=== PATIENT | male | born 1945 | race Caucasian/White ===

== ENCOUNTER 2017-12-19 12:35 | Inpatient (IN) | payer MEDICARE, BC ==
[2017-12-19 12:48] VITALS: BMI 27.8
--- NOTE | 2017-12-19 13:02 | RAD ---
PROCEDURE: CHEST RADIOGRAPH, 1 VIEW HISTORY: SOB COMPARISON: None available. FINDINGS: LUNGS: Ill-defined opacity right base, possibly subsegmental atelectasis. Followup advised. PLEURA: No pneumothorax or pleural fluid seen. CARDIOVASCULAR: Normal heart size. Mild congestive change. Right tunneled central venous dialysis catheter. 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 OTHER FINDINGS: None. IMPRESSION: Subsegmental atelectasis versus early infiltrate at right base. Followup advised. Mild congestive change. Central venous catheter.
--- NOTE | 2017-12-19 13:11 | C.PDOC ---
History Of Present Illness 72-year-old, PMHx includes ESRD oon Dialysis (MWF), is brought to the emergency department by EMS from dialysis. As per EMS, patient went for routine dialysis today and 2h40 into dialysis, he became unresponsive. CPR was immediately initiated and EMS was phoned. Patient was shocked twice, given epi once, 1 amp of CA and 1amp bicarb with spontaneous return of heart rhythm. Patient required my immediate attention. During my evaluation, patient is alert and oriented x3. He is currently complaining of chest soreness from compressions. Notes he felt like normal self prior to incident. Time Seen by Provider: 12/19/17 12:40 Chief Complaint (Nursing): Chest Pain History Per: Patient, EMS History/Exam Limitations: no limitations Past Medical History Reviewed: Historical Data, Nursing Documentation, Vital Signs Vital Signs: Last Vital Signs Temp 97.5 F L 12/20/17 04:00 Pulse 64 12/20/17 09:13 Resp 16 12/20/17 09:13 BP 104/52 L 12/20/17 09:13 Pulse Ox 100 12/20/17 09:37 - Medical History PMH: Anemia, HTN, Chronic Kidney Disease Family History: States: No Known Family Hx - Social History Hx Alcohol Use: Yes Hx Substance Use: No Review Of Systems Except As Marked, All Systems Reviewed And Found Negative. Constitutional: Negative for: Fever, Chills Cardiovascular: Negative for: Chest Pain, Palpitations, Light Headedness Respiratory: Negative for: Shortness of Breath Gastrointestinal: Negative for: Nausea, Vomiting Skin: Negative for: Rash Neurological: Negative for: Weakness, Numbness, Altered Mental Status, Headache , Dizziness Physical Exam - Physical Exam Appears: Non-toxic, No Acute Distress Skin: Normal Color, Warm, Dry, No Rash Head: Normacephalic Eye(s): bilateral: PERRL Nose: Normal, No Flaring Lips: Normal Appearing Neck: Normal ROM Chest: Symmetrical, Other (dialysis catheter left anterior chest wall ) Cardiovascular: Rhythm Regular, No Murmur Respiratory: Normal Breath Sounds, No Decreased Breath Sounds, No Accessory Muscle Use Gastrointestinal/Abdominal: Soft, No Tenderness (ventral hernia), No Guarding, No Rebound Extremity: Normal ROM, No Deformity, No Swelling Pulses: Left Radial: Normal, Right Radial: Normal Neurological/Psych: Oriented x3, Normal Speech ED Course And Treatment - Laboratory Results Result Diagrams: 12/20/17 05:50 12/20/17 05:57 O2 Sat by Pulse Oximetry: 100 (RA) Pulse Ox Interpretation: Normal Critical Care Time - Critical Care Note Total Time (in mins): 45 Documented critical care: time excludes all time spent performing seperately billable procedures. Medical Decision Making Medical Decision Making: Impression 72y/o M comes in s/p cardiac arrest with ROSC Plan: * EKG * Bloodwork * Chest X-Ray * Reassess and Disposition Time: 1241 EKG Rate 65bpm Rhythm NSR Interpret 3rd degree heart block Time: 12:50 EKG Rate 79bpm Rhythm NSR Interpret First degree AV block. LBBB. No old to compare. Consult Stat consult Dr Eugenia Desai, EKG was sent. Case was discussed with ICU Dr Echevarria, states he will evaluate patient at bedside in ED Dr Reyes was notified, and will admit patient ICU s/p arrest. Disposition - Disposition Disposition: HOSPITALIZED Disposition Time: 13:10 Condition: SERIOUS - Clinical Impression Clinical Impression: Cardiac arrest - Scribe Statement The provider has reviewed the documentation as recorded by the Scribe (Zack Scherer) All medical record entries made by the Scribe were at my direction and personally dictated by me. I have reviewed the chart and agree that the record accurately reflects my personal performance of the history, physical exam, medical decision making, and the department course for this patient. I have also personally directed, reviewed, and agree with the discharge instructions and disposition.
[2017-12-19 13:14] LABS: BASO # 0.1 K/uL (0.0-0.2); BASO % 0.8 % (0.0-2.0); EOS # 0.3 K/uL (0.0-0.7); EOS % 2.1 % (0.0-4.0); HEMOGLOBIN 13.5 g/dL (12.0-18.0); LYMPH # 3.5 K/uL (1.0-4.3); LYMPH % 25.4 % (20.0-40.0); MEAN CELL VOLUME 96.4 fL (80.0-94.0); MEAN CORPUSCULAR HEMOGLOBIN 31.7 pg (27.0-31.0); MEAN CORPUSCULAR HGB CONC 32.9 g/dL (33.0-37.0); MONO # 0.7 K/uL (0.0-0.8); MONO % 4.9 % (0.0-10.0); NEUT # 9.3 K/uL (1.8-7.0); NEUT % 66.8 % (50.0-75.0); NRBC % 0.1 % (0.0-2.0); RBC 4.27 Mil/uL (4.40-5.90); RED CELL DISTRIBUTION WIDTH 17.1 % (11.5-14.5); WHITE BLOOD COUNT 13.9 K/uL (4.8-10.8)
[2017-12-19 13:23] LABS: INR 1.3; PROTHROMBIN TIME 14.5 SECONDS (9.7-12.2)
[2017-12-19 14:17] LABS: ALB/GLOB RATIO 0.8 (1.0-2.1); ALBUMIN 3.7 g/dL (3.5-5.0); CALCIUM 9.8 mg/dl (8.6-10.4)
--- NOTE | 2017-12-19 14:17 | CP.PCM.CON ---
History of Present Illness - History of Present Illness History of Present Illness: Nephrology Consultation Note: Assessment: critical cardiac arrest End stage renal disease (N18.6) dependence on hemodialysis (Z99.2) (MWF) via permacath Anemia (D64.9), chronic low BP/hypotension, chronic sys CHF LVEF <20% cardio-renal syndrome Plan: todays BMP pending. No acute need for dialysis today. Will likely plan for next dialysis Sunday. Continue with Nephrovite 1 tab/day. PRBC as needed for anemia. Last Hb 13, plan for INOCENCIO if Hb <10 Continue with phos binders home dose, check phos level maintain hemodynamics stable. Patient not on RAAS sofia as BP usually low. he takes midodrine TID Glycemic control, Dialysis consistent diet Further work up/management as per primary team Dose meds/antibiotics (if needed) for ESRD status. Avoid fleets enema/magnesium based laxatives. d/w ICU team Thanks for allowing me to participate in care of your patient. Will follow patient with you. Please call if any Qs. d/w family bedside. Dr Darryl Dunn Office: [phone] Chief Complaint;chest soreness HPI: Pt is a72 M with hx of JERI (cardio-renal syndrome, ATN) on CKD 3 in may 2017 which was dialysis dependent and now ESRD on hemodialysis (MWF) via permacath @[facility], last dialysis today, chronic anemia, chronic low BP, chronic severe systolic CHF (LVEF <20%) was undergoing dialysis today but towards the end of HD he became unresponsive. he was resuscitated with CPR, shocks and brought to hospital for further eval has chronic hoarseness of voice since prolonged intubation last year c/o chest soreness and pain after CPR. denies SOB ROS: Cardiovascular: c/o chest pain. Pulmonary: No shortness of breath Gastrointestinal: denies abdominal pain No nausea. No vomiting. Genitourinary: No pain while urinating. Denies blood in urine. makes small amount of urine All other negative except as mentioned in HPI Physical Examination: General Appearance: Comfortable, in no acute respiratory distress, co-operative . ill appearing Vitals reviewed and noted as below Head; Atraumatic, normocephalic ENT: no ulcers no thrush. Tongue is midline. Oropharynx: no rash or ulcers.has hoarse voice EYES: Pupils are equal, round and reactive to light accommodation. Eye muscles and extraocular movement intact. Sclera is anicteric. Neck; supple no lymphadenopathy, no thyromegaly or bruit Lungs: Normal respiratory rate/effort. Breath sounds bilateral equal and basal crackles Heart: Normal rate. s1s2 normal. No rub or gallop. Extremities: no edema. No varicose veins. Neurological: Patient is alert, awake and oriented to person, place and time. No focal deficit. Strength bilateral appropriate and equal Skin: Warm and dry. Normal turgor. No rash. Palpitation: Normal elasticity for age Abdomen: Abdomen is soft. Bowel sounds +. There is no abdominal tenderness, no guarding/rigidity or organomegaly Psych: normal insight and normal affect/mood MSK: no joint tenderness or swelling. Digits and nails normal, no deformity : kidney or bladder not palpable Access: permacath. left AVF maturing. LUE edema improved Labs/imaging reviewed. Past medical history, past surgical history, family history, social history, allergy reviewed and noted as below Family Hx: no hx of CKD. Non contributory Past Patient History - Past Social History Smoking Status: Former Smoker - CARDIAC Hx Hypertension: Yes - RENAL Hx Chronic Kidney Disease: Yes - ENDOCRINE/METABOLIC Hx Endocrine Disorders: Yes Hx Diabetes Mellitus Type 2: Yes - HEMATOLOGICAL/ONCOLOGICAL Hx Anemia: Yes - INTEGUMENTARY Other/Comment: MRSA 08/2017 - PSYCHIATRIC Hx Substance Use: No - SURGICAL HISTORY Hx Surgeries: Yes Hx Herniorrhaphy: Yes Meds Allergies/Adverse Reactions: Allergies Allergy/AdvReac Type Severity Reaction Status Date / Time Penicillins Allergy Verified 12/19/17 12:39 Results - Vital Signs Recent Vital Signs: Last Vital Signs Temp 97.6 F 12/19/17 12:41 Pulse 78 12/19/17 13:38 Resp 16 12/19/17 13:38 BP 99/48 L 12/19/17 13:38 Pulse Ox 100 12/19/17 14:08 - Labs Result Diagrams: 12/19/17 13:10 Labs: Laboratory Results - last 24 hr 12/19/17 12/19/17 12/19/17 12:49 13:10 13:10 WBC 13.9 H RBC 4.27 L Hgb 13.5 Hct 41.2 MCV 96.4 H MCH 31.7 H MCHC 32.9 L RDW 17.1 H Plt Count 242 MPV 8.0 Neut % (Auto) 66.8 Lymph % (Auto) 25.4 [place] % (Auto) 4.9 Eos % (Auto) 2.1 Baso % (Auto) 0.8 Neut # (Auto) 9.3 H Lymph # (Auto) 3.5 [place] # (Auto) 0.7 Eos # (Auto) 0.3 Baso # (Auto) 0.1 PT 14.5 H INR 1.3 APTT 29 POC Glucose (mg/dL) 171 H
[2017-12-19 14:28] LABS: TROPONIN I 0.067 ng/mL (0.00-0.120)
--- NOTE | 2017-12-19 15:04 | CP.PCM.CON ---
<Lalitha Winkler - Last Filed: 12/19/17 15:52> History of Present Illness - History of Present Illness History of Present Illness: ICU Consult Note : Patient is a 72 year old male with past medical history of ESRD on Hemodialysis M,W,F, Diabetes Mellitus Type 2, low blood pressure, Congestive Heart Failure LVEF <20% presents to the ED s/p cardiac arrest. Patient's nephew is at the beside providing the history. He states that the patient went to hemodialysis with his . While getting dialyzed he complained that he was cold then his eyes rolled in the back of his head. Patient was unresponsive, CPR was initiated. He was given Epi x 1, Shock x 2, 5 sets of CPR with ROSC. Currently he is complaining of chest pain after the CPR. Denies headaches, dizziness, sob , palpitations, abdominal pain. He does not make urine. PMD: Dr Henley Aircraft Servicer: Dr Desai Sales Representative Raw Fibers: Dr Oden Allergies: PCN - itchiness Medications: List to be confirmed with the pharmacy Medical Hx: DM Type 2, ESRD on HD since May 2017, HTN Surgical Hx: Appendectomy, Hernia repair Social Hx: Former smoker, former drinker, quit years ago; denies drug use Family Hx: Non-contributory Past Patient History - Past Social History Smoking Status: Former Smoker - CARDIAC Hx Hypertension: Yes - RENAL Hx Chronic Kidney Disease: Yes - ENDOCRINE/METABOLIC Hx Endocrine Disorders: Yes Hx Diabetes Mellitus Type 2: Yes - HEMATOLOGICAL/ONCOLOGICAL Hx Anemia: Yes - INTEGUMENTARY Other/Comment: MRSA 08/2017 - PSYCHIATRIC Hx Substance Use: No - SURGICAL HISTORY Hx Surgeries: Yes Hx Herniorrhaphy: Yes Meds Allergies/Adverse Reactions: Allergies Allergy/AdvReac Type Severity Reaction Status Date / Time Penicillins Allergy Verified 12/19/17 12:39 - Medications Medications: Current Medications Vitamin B Complex/Vit C/Folic Acid (Nephro-Ayo) 1 tab PO 0800 DEVAUGHN Physical Exam - Constitutional Appears: Well, No Acute Distress, Chronically Ill - Head Exam Head Exam: ATRAUMATIC, NORMAL INSPECTION - Eye Exam Eye Exam: EOMI, Normal appearance Pupil Exam: NORMAL ACCOMODATION, PERRL - ENT Exam ENT Exam: Mucous Membranes Moist - Neck Exam Neck exam: Positive for: Full Rom - Respiratory Exam Respiratory Exam: Clear to Auscultation Bilateral, NORMAL BREATHING PATTERN. absent: Rales, Rhonchi, Wheezes - Cardiovascular Exam Cardiovascular Exam: Tachycardia, REGULAR RHYTHM Additional comments: Right chest wall permacath - GI/Abdominal Exam GI & Abdominal Exam: Hernia, Normal Bowel Sounds, Soft. absent: Tenderness - Extremities Exam Extremities exam: Positive for: normal inspection, pedal pulses present. Negative for: calf tenderness - Neurological Exam Neurological exam: Alert, Oriented x3 - Psychiatric Exam Psychiatric exam: Normal Affect, Normal Mood - Skin Skin Exam: Dry, Normal Color, Warm Results - Vital Signs Recent Vital Signs: Last Vital Signs Temp 97.6 F 12/19/17 12:41 Pulse 78 12/19/17 13:38 Resp 16 12/19/17 13:38 BP 99/48 L 12/19/17 13:38 Pulse Ox 100 12/19/17 14:17 - Labs Result Diagrams: 12/19/17 13:10 12/19/17 13:57 Labs: Laboratory Results - last 24 hr 12/19/17 12/19/17 12/19/17 12:49 13:10 13:10 WBC 13.9 H RBC 4.27 L Hgb 13.5 Hct 41.2 MCV 96.4 H MCH 31.7 H MCHC 32.9 L RDW 17.1 H Plt Count 242 MPV 8.0 Neut % (Auto) 66.8 Lymph % (Auto) 25.4 [place] % (Auto) 4.9 Eos % (Auto) 2.1 Baso % (Auto) 0.8 Neut # (Auto) 9.3 H Lymph # (Auto) 3.5 [place] # (Auto) 0.7 Eos # (Auto) 0.3 Baso # (Auto) 0.1 PT 14.5 H INR 1.3 APTT 29 Sodium Potassium Chloride Carbon Dioxide Anion Gap BUN Creatinine Est GFR ( Amer) Est GFR (Non-Af Amer) POC Glucose (mg/dL) 171 H Random Glucose Calcium Total Bilirubin AST ALT Alkaline Phosphatase Troponin I NT-Pro-B Natriuret Pep Total Protein Albumin Globulin Albumin/Globulin Ratio 12/19/17 13:57 WBC RBC Hgb Hct MCV MCH MCHC RDW Plt Count MPV Neut % (Auto) Lymph % (Auto) [place] % (Auto) Eos % (Auto) Baso % (Auto) Neut # (Auto) Lymph # (Auto) [place] # (Auto) Eos # (Auto) Baso # (Auto) PT INR APTT Sodium 138 Potassium 3.1 L Chloride 94 L Carbon Dioxide 29 Anion Gap 19 BUN 25 H Creatinine 3.2 H Est GFR ( Amer) 23 Est GFR (Non-Af Amer) 19 POC Glucose (mg/dL) Random Glucose 152 H Calcium 9.8 Total Bilirubin 0.8 AST 100 H ALT 66 Alkaline Phosphatase 96 Troponin I 0.0670 NT-Pro-B Natriuret Pep 47557 H Total Protein 8.4 H Albumin 3.7 Globulin 4.6 H Albumin/Globulin Ratio 0.8 L Assessment & Plan - Assessment and Plan (Free Text) Assessment: Patient is a 72 year old Male with past medical history of DM Type 2, ESRD on HD MWF, chronic low BPs, CHF with LVEF <20% presented to the ED s/p Cardiac arrest while getting hemodialysis. Patient admitted to the ICU for closer monitoring Neurology: -Patient is AAOx3 -Speaking in clear sentences, answering questions appropriately -Admitted for closer monitoring Cardiology: -Patient is s/p cardiac arrest -History of CHF with LVEF<20% -BNP on admission 91517 -Initial troponin is negative -Will continue Coreg 6.25mg PO BID, Amiodarone 200mg PO daily -Will order echo, F/U EKG -Midodrine 10mg PO TID -Morphine 1mg Q4H prn pain -Cardiology on consult, Dr Desai, help appreciated Respiratory: -Supplemental O2 -CXR showed subsegmental atelectasis versus early infiltrate at right base. Mild congestive change. Renal: -Hx of ESRD on HD MWF -Continue Nephrovite 1 tab daily -Continue Cholecalciferol 2000 units daily -Per nephro, no emergent need for dialysis today -Potassium 3.1, will give Kcl 20meq -Monitor serial CMPs, magnesium, phosphorus -Renal Diet -Nephrology consult, Dr Dunn, help appreciated GI: -Continue Protonix 40mg PO daily -AST/ALT: 100/66 -Continue to monitor Heme/Onc: -Patient with history of Chronic Anemia -On ferrous sulfate 325mg PO daily at home -Hemoglobin stable at this time Endocrine: -History of Diabetes Mellitus Type 2 -Low dose ISS, accuchecks ACHS Infectious Disease: -Patient with leukocytosis 13.9 -Will hold off starting antibiotics at this time -Will continue to monitor GI/DVT ppx: -Protonix 40mg PO daily -Eliquis 2.5mg PO BID <Pawan Echevarria - Last Filed: 12/19/17 16:03> Meds - Medications Medications: Current Medications Amiodarone HCl (Cordarone) 200 mg PO DAILY [facility] Apixaban (Eliquis) 2.5 mg PO Q12 [facility] Carvedilol (Coreg) 6.25 mg PO BID [facility] Ergocalciferol (Drisdol 50,000 Intl Units Cap) 1 cap PO QWK [facility] Insulin Aspart (Novolog) 0 unit SC ACHS DEVAUGHN PRN Reason: Protocol Midodrine (Proamatine) 10 mg PO TID [facility] Morphine Sulfate (Morphine) 1 mg IVP Q6H PRN PRN Reason: Pain, moderate (4-7) Pantoprazole Sodium (Protonix Ec Tab) 40 mg PO DAILY [facility] Last Admin: 12/19/17 15:36 Dose: 40 mg Vitamin B Complex/Vit C/Folic Acid (Nephro-Ayo) 1 tab PO 0800 [facility] Results - Vital Signs Recent Vital Signs: Last Vital Signs Temp 97.6 F 12/19/17 12:41 Pulse 77 12/19/17 15:24 Resp 16 12/19/17 13:38 BP 99/48 L 12/19/17 13:38 Pulse Ox 100 12/19/17 14:17 - Labs Result Diagrams: 12/19/17 13:10 12/19/17 13:57 Labs: Laboratory Results - last 24 hr 12/19/17 12/19/17 12/19/17 12:49 13:10 13:10 WBC 13.9 H RBC 4.27 L Hgb 13.5 Hct 41.2 MCV 96.4 H MCH 31.7 H MCHC 32.9 L RDW 17.1 H Plt Count 242 MPV 8.0 Neut % (Auto) 66.8 Lymph % (Auto) 25.4 [place] % (Auto) 4.9 Eos % (Auto) 2.1 Baso % (Auto) 0.8 Neut # (Auto) 9.3 H Lymph # (Auto) 3.5 [place] # (Auto) 0.7 Eos # (Auto) 0.3 Baso # (Auto) 0.1 PT 14.5 H INR 1.3 APTT 29 Sodium Potassium Chloride Carbon Dioxide Anion Gap BUN Creatinine Est GFR ( Amer) Est GFR (Non-Af Amer) POC Glucose (mg/dL) 171 H Random Glucose Calcium Total Bilirubin AST ALT Alkaline Phosphatase Troponin I NT-Pro-B Natriuret Pep Total Protein Albumin Globulin Albumin/Globulin Ratio 12/19/17 13:57 WBC RBC Hgb Hct MCV MCH MCHC RDW Plt Count MPV Neut % (Auto) Lymph % (Auto) [place] % (Auto) Eos % (Auto) Baso % (Auto) Neut # (Auto) Lymph # (Auto) [place] # (Auto) Eos # (Auto) Baso # (Auto) PT INR APTT Sodium 138 Potassium 3.1 L Chloride 94 L Carbon Dioxide 29 Anion Gap 19 BUN 25 H Creatinine 3.2 H Est GFR ( Amer) 23 Est GFR (Non-Af Amer) 19 POC Glucose (mg/dL) Random Glucose 152 H Calcium 9.8 Total Bilirubin 0.8 AST 100 H ALT 66 Alkaline Phosphatase 96 Troponin I 0.0670 NT-Pro-B Natriuret Pep 13325 H Total Protein 8.4 H Albumin 3.7 Globulin 4.6 H Albumin/Globulin Ratio 0.8 L Attending/Attestation - Attestation I have personally seen and examined this patient.: Yes I have fully participated in the care of the patient.: Yes I have reviewed all pertinent clinical information: Yes Notes (Text): 12/19/17 16:02 patient seen and examined Status post cardiac arrest/resuscitation during hemodialysis Patient is awake and responsive Denies any chest pain, denies cough, denies fever or chills Hemodynamically stable Continue to monitor in ICU cardiology evaluation Continue present treatment
[2017-12-19] MEDS ORDERED: Potassium Chloride 20 mEq ER Tab PO ONE (15:21)
[2017-12-19] MEDS: Pantoprazole 40 mg EC Tab PO SCH (15:36)
--- NOTE | 2017-12-19 15:53 | CP.PCM.HP ---
<Lalitha Winkler - Last Filed: 12/19/17 16:54> History of Present Illness - History of Present Illness History of Present Illness: Patient is a 72 year old male with past medical history of ESRD on Hemodialysis M,W,F, Diabetes Mellitus Type 2, low blood pressure, Congestive Heart Failure LVEF <20% presents to the ED s/p cardiac arrest. Patient's nephew is at the beside providing the history. He states that the patient went to hemodialysis with his . While getting dialyzed he complained that he was cold then his eyes rolled in the back of his head. Patient was unresponsive, CPR was initiated. He was given Epi x 1, Shock x 2, 5 sets of CPR with ROSC. Currently he is complaining of chest pain after the CPR. Denies headaches, dizziness, sob , palpitations, abdominal pain. He does not make urine. PMD: Dr Henley [facility] Pathology Associate Professor: Dr Desai Entry Level Programmer: Dr Oden Allergies: PCN - itchiness Medications: List to be confirmed with the pharmacy Medical Hx: DM Type 2, ESRD on HD since May 2017, HTN Surgical Hx: Appendectomy, Hernia repair Social Hx: Former smoker, former drinker, quit years ago; denies drug use Family Hx: Non-contributory Present on Admission - Present on Admission Any Indicators Present on Admission: No Past Patient History - Past Social History Smoking Status: Former Smoker - CARDIAC Hx Hypertension: Yes - HEENT Hx Cataracts: Yes (both eyes) - RENAL Hx Chronic Kidney Disease: Yes - ENDOCRINE/METABOLIC Hx Endocrine Disorders: Yes Hx Diabetes Mellitus Type 2: Yes - HEMATOLOGICAL/ONCOLOGICAL Hx Anemia: Yes - INTEGUMENTARY Other/Comment: MRSA 08/2017 - MUSCULOSKELETAL/RHEUMATOLOGICAL Hx Falls: No - GASTROINTESTINAL Hx Ulcer: Yes - PSYCHIATRIC Hx Substance Use: No - SURGICAL HISTORY Hx Surgeries: Yes Hx Herniorrhaphy: Yes - ANESTHESIA Hx Anesthesia: Yes Hx Anesthesia Reactions: No Meds Allergies/Adverse Reactions: Allergies Allergy/AdvReac Type Severity Reaction Status Date / Time Penicillins Allergy Verified 12/19/17 12:39 Physical Exam - Additional Findings Additional findings: - Constitutional Appears: Well, No Acute Distress, Chronically Ill - Head Exam Head Exam: ATRAUMATIC, NORMAL INSPECTION - Eye Exam Eye Exam: EOMI, Normal appearance Pupil Exam: NORMAL ACCOMODATION, PERRL - ENT Exam ENT Exam: Mucous Membranes Moist - Neck Exam Neck exam: Positive for: Full Rom - Respiratory Exam Respiratory Exam: Clear to Auscultation Bilateral, NORMAL BREATHING PATTERN. absent: Rales, Rhonchi, Wheezes - Cardiovascular Exam Cardiovascular Exam: Tachycardia, REGULAR RHYTHM Additional comments: Right chest wall permacath - GI/Abdominal Exam GI & Abdominal Exam: Hernia, Normal Bowel Sounds, Soft. absent: Tenderness - Extremities Exam Extremities exam: Positive for: normal inspection, pedal pulses present. Negative for: calf tenderness - Neurological Exam Neurological exam: Alert, Oriented x3 - Psychiatric Exam Psychiatric exam: Normal Affect, Normal Mood - Skin Skin Exam: Dry, Normal Color, Warm Results - Vital Signs Recent Vital Signs: Last Vital Signs Temp 97.6 F 12/19/17 12:41 Pulse 77 12/19/17 15:24 Resp 16 12/19/17 13:38 BP 99/48 L 12/19/17 13:38 Pulse Ox 100 12/19/17 14:17 - Labs Result Diagrams: 12/19/17 13:10 12/19/17 13:57 Labs: Laboratory Results - last 24 hr 12/19/17 12/19/17 12/19/17 12:49 13:10 13:10 WBC 13.9 H RBC 4.27 L Hgb 13.5 Hct 41.2 MCV 96.4 H MCH 31.7 H MCHC 32.9 L RDW 17.1 H Plt Count 242 MPV 8.0 Neut % (Auto) 66.8 Lymph % (Auto) 25.4 [place] % (Auto) 4.9 Eos % (Auto) 2.1 Baso % (Auto) 0.8 Neut # (Auto) 9.3 H Lymph # (Auto) 3.5 [place] # (Auto) 0.7 Eos # (Auto) 0.3 Baso # (Auto) 0.1 PT 14.5 H INR 1.3 APTT 29 Sodium Potassium Chloride Carbon Dioxide Anion Gap BUN Creatinine Est GFR ( Amer) Est GFR (Non-Af Amer) POC Glucose (mg/dL) 171 H Random Glucose Calcium Total Bilirubin AST ALT Alkaline Phosphatase Troponin I NT-Pro-B Natriuret Pep Total Protein Albumin Globulin Albumin/Globulin Ratio 12/19/17 13:57 WBC RBC Hgb Hct MCV MCH MCHC RDW Plt Count MPV Neut % (Auto) Lymph % (Auto) [place] % (Auto) Eos % (Auto) Baso % (Auto) Neut # (Auto) Lymph # (Auto) [place] # (Auto) Eos # (Auto) Baso # (Auto) PT INR APTT Sodium 138 Potassium 3.1 L Chloride 94 L Carbon Dioxide 29 Anion Gap 19 BUN 25 H Creatinine 3.2 H Est GFR ( Amer) 23 Est GFR (Non-Af Amer) 19 POC Glucose (mg/dL) Random Glucose 152 H Calcium 9.8 Total Bilirubin 0.8 AST 100 H ALT 66 Alkaline Phosphatase 96 Troponin I 0.0670 NT-Pro-B Natriuret Pep 37088 H Total Protein 8.4 H Albumin 3.7 Globulin 4.6 H Albumin/Globulin Ratio 0.8 L Assessment & Plan - Assessment and Plan (Free Text) Assessment: Patient is a 72 year old Male with past medical history of DM Type 2, ESRD on HD MWF, chronic low BPs, CHF with LVEF <20% presented to the ED s/p Cardiac arrest while getting hemodialysis. Patient admitted to the ICU for closer monitoring Neurology: -Patient is AAOx3 -Speaking in clear sentences, answering questions appropriately -Admitted for closer monitoring Cardiology: -Patient is s/p cardiac arrest -History of CHF with LVEF<20% -BNP on admission [address]18[address] -Initial troponin is negative -Will continue Coreg 6.25mg PO BID, Amiodarone 200mg PO daily -Will order echo, F/U EKG -Morphine 1mg Q4H prn pain -Cardiology on consult, Dr Desai, help appreciated Respiratory: -Supplemental O2 -CXR showed subsegmental atelectasis versus early infiltrate at right base. Mild congestive change. Renal: -Hx of ESRD on HD MWF -Continue Nephrovite 1 tab daily -Continue Cholecalciferol 2000 units daily -Per nephro, no emergent need for dialysis today -Potassium 3.1, will give Kcl 20meq -Monitor serial CMPs, magnesium, phosphorus -Renal Diet -Nephrology consult, Dr Dunn, help appreciated GI: -Continue Protonix 40mg PO daily -AST/ALT: 100/66 -Continue to monitor Heme/Onc: -Patient with history of Chronic Anemia -On ferrous sulfate 325mg PO daily at home -Hemoglobin stable at this time Endocrine: -History of Diabetes Mellitus Type 2 -Low dose ISS, accuchecks ACHS Infectious Disease: -Patient with leukocytosis 13.9 -Will hold off starting antibiotics at this time -Will continue to monitor GI/DVT ppx: -Protonix 40mg PO daily -Eliquis 2.5mg PO BID <Reyes,Peter H - Last Filed: 12/20/17 07:46> Results - Vital Signs Recent Vital Signs: Last Vital Signs Temp 97.5 F L 12/20/17 04:00 Pulse 71 12/20/17 07:17 Resp 16 12/20/17 07:17 BP 123/63 12/20/17 07:17 Pulse Ox 100 12/20/17 07:17 - Labs Result Diagrams: 12/20/17 05:50 12/20/17 05:57 Labs: Laboratory Results - last 24 hr 12/19/17 12/19/17 12/19/17 12:49 13:10 13:10 WBC 13.9 H RBC 4.27 L Hgb 13.5 Hct 41.2 MCV 96.4 H MCH 31.7 H MCHC 32.9 L RDW 17.1 H Plt Count 242 MPV 8.0 Neut % (Auto) 66.8 Lymph % (Auto) 25.4 [place] % (Auto) 4.9 Eos % (Auto) 2.1 Baso % (Auto) 0.8 Neut # (Auto) 9.3 H Lymph # (Auto) 3.5 [place] # (Auto) 0.7 Eos # (Auto) 0.3 Baso # (Auto) 0.1 PT 14.5 H INR 1.3 APTT 29 Sodium Potassium Chloride Carbon Dioxide Anion Gap BUN Creatinine Est GFR ( Amer) Est GFR (Non-Af Amer) POC Glucose (mg/dL) 171 H Random Glucose Calcium Phosphorus Magnesium Total Bilirubin AST ALT Alkaline Phosphatase Troponin I NT-Pro-B Natriuret Pep Total Protein Albumin Globulin Albumin/Globulin Ratio 12/19/17 12/19/17 12/19/17 13:57 16:06 21:07 WBC RBC Hgb Hct MCV MCH MCHC RDW Plt Count MPV Neut % (Auto) Lymph % (Auto) [place] % (Auto) Eos % (Auto) Baso % (Auto) Neut # (Auto) Lymph # (Auto) [place] # (Auto) Eos # (Auto) Baso # (Auto) PT INR APTT Sodium 138 Potassium 3.1 L Chloride 94 L Carbon Dioxide 29 Anion Gap 19 BUN 25 H Creatinine 3.2 H Est GFR ( Amer) 23 Est GFR (Non-Af Amer) 19 POC Glucose (mg/dL) 165 H 170 H Random Glucose 152 H Calcium 9.8 Phosphorus Magnesium Total Bilirubin 0.8 AST 100 H ALT 66 Alkaline Phosphatase 96 Troponin I 0.0670 NT-Pro-B Natriuret Pep 61325 H Total Protein 8.4 H Albumin 3.7 Globulin 4.6 H Albumin/Globulin Ratio 0.8 L 12/20/17 12/20/17 12/20/17 05:50 05:57 07:14 WBC 15.2 H RBC 4.18 L Hgb 13.1 Hct 40.1 MCV 96.0 H MCH 31.4 H MCHC 32.7 L RDW 17.2 H Plt Count 235 MPV 8.0 Neut % (Auto) 74.4 Lymph % (Auto) 18.8 L [place] % (Auto) 6.0 Eos % (Auto) 0.3 Baso % (Auto) 0.5 Neut # (Auto) 11.3 H Lymph # (Auto) 2.8 [place] # (Auto) 0.9 H Eos # (Auto) 0.0 Baso # (Auto) 0.1 PT INR APTT Sodium 140 Potassium 3.6 Chloride 93 L Carbon Dioxide 32 H Anion Gap 19 BUN 38 H Creatinine 4.4 H Est GFR ( Amer) 16 Est GFR (Non-Af Amer) 13 POC Glucose (mg/dL) 146 H Random Glucose 146 H Calcium 9.8 Phosphorus 3.6 Magnesium 2.0 Total Bilirubin 0.8 AST 59 D ALT 52 Alkaline Phosphatase 96 Troponin I NT-Pro-B Natriuret Pep Total Protein 8.3 Albumin 3.9 Globulin 4.4 H Albumin/Globulin Ratio 0.9 L Attending/Attestation - Attestation I have personally seen and examined this patient.: Yes I have fully participated in the care of the patient.: Yes I have reviewed all pertinent clinical information: Yes Notes (Text): 12/20/17 07:39 Medical attending: Patient was seen and examined by me, agree with the above note by the resident. The patient had family member at bedside when I saw him. The patient was awake and alert. He was following some very basic commands in Wolof. He reported still having chest pain - tenderness probably from the CPR he had earlier. The patient does not recall the events that led up to him comming to the hospital. As mentioned previously he was at HD when they noted AMS and he had CPR, epinephrine as well as EMS delivery two shocks. There appears to be sometype of heart block on one of the early EKGs, possibly a third degree block. By the time he was in the ER and while seen in ICU he was sinus. There is documentation from other providers who know the patient that the ejection fraction is very low. He might need a defibrillator/pacer. He is currently on amiodarone, coreg, and Eliquis. thank you Tomas Reyes 12/20/17 07:45
[2017-12-19] MEDS: (Novolog) Insulin Aspart, Recombinant 100 u/ml 10 ml vial SC SCH ×2 (16:38→21:24)
[2017-12-20 06:06] LABS: BASO # 0.1 K/uL (0.0-0.2); BASO % 0.5 % (0.0-2.0); EOS % 0.3 % (0.0-4.0); HEMOGLOBIN 13.1 g/dL (12.0-18.0); LYMPH # 2.8 K/uL (1.0-4.3); LYMPH % 18.8 % (20.0-40.0); MEAN CORPUSCULAR HEMOGLOBIN 31.4 pg (27.0-31.0); MEAN CORPUSCULAR HGB CONC 32.7 g/dL (33.0-37.0); MONO # 0.9 K/uL (0.0-0.8); NEUT # 11.3 K/uL (1.8-7.0); NEUT % 74.4 % (50.0-75.0); NRBC % 0.1 % (0.0-2.0); RBC 4.18 Mil/uL (4.40-5.90); RED CELL DISTRIBUTION WIDTH 17.2 % (11.5-14.5); WHITE BLOOD COUNT 15.2 K/uL (4.8-10.8)
[2017-12-20 06:29] LABS: ALB/GLOB RATIO 0.9 (1.0-2.1); ALBUMIN 3.9 g/dL (3.5-5.0); CALCIUM 9.8 mg/dl (8.6-10.4)
[2017-12-20] MEDS: (Novolog) Insulin Aspart, Recombinant 100 u/ml 10 ml vial SC SCH ×4 (07:32→21:15)
[2017-12-20] MEDS ORDERED: Midazolam 2 MG/2 ML VIAL ONE (08:48)
[2017-12-20] MEDS ORDERED: Midazolam 2 MG/2 ML VIAL IVP ONE (09:03)
[2017-12-20] MEDS ORDERED: Amiodarone 150mg/3 ml vial ONE (09:45)
[2017-12-20] MEDS ORDERED: Sodium Chloride 0.9% 500 ML IV ONE (09:57)
[2017-12-20] MEDS ORDERED: Ergocalciferol 50,000 Intl Units Cap PO SCH (10:00)
[2017-12-20] MEDS ORDERED: Digoxin 250 mcg (0.25 mg) Tab PO ONE (10:15)
--- NOTE | 2017-12-20 10:23 | CP.PCM.CON ---
History of Present Illness - History of Present Illness History of Present Illness: Dr Desai has asked me to see this patient with CHF and ventricular tachycardia. This is a 72 yo man with CV history of NICM, PAF, LBBB, AVCD, HTN, mixed hyperlipidemia, ESRED, CHF. While at HD yesterday he had a witnessed cardiac arrest. He was transferred to this hospital after being recussitated. Today, while sitting in bed in the ICD he experienced sustsained ventricular tachycardia. He is currently still sedated from his cardioversion but is arousable. I have discussed his case at length with Dr. Desai. Echo 05/15/17 LVEF 20% Moderate MR Pulmonary HTN LAE 10/02/16 EF 35% EC12/20/17: WCT 390 R bundloid left superior axis. 12/19/17: SR at 80 5 300/150/511 AVCD. LBBB PMedHx: ESRD HD, CHF, VT, LBBB, AVCD, anemia, PAF, abdominal surgery, DVT SocialHx: No current tobaco use grandson fernando [phone], [phone] Family Hx: No alcohol use Home Meds: amiodarone 200, eliquis 2.5, coreg 6.25, iron, pantoprazole 40 Review of Systems - Review of Systems Systems not reviewed;Unavailable: Altered Mental Status Past Patient History - Past Social History Smoking Status: Former Smoker - CARDIAC Hx Hypertension: Yes - HEENT Hx Cataracts: Yes (both eyes) - RENAL Hx Chronic Kidney Disease: Yes - ENDOCRINE/METABOLIC Hx Endocrine Disorders: Yes Hx Diabetes Mellitus Type 2: Yes - HEMATOLOGICAL/ONCOLOGICAL Hx Anemia: Yes - INTEGUMENTARY Other/Comment: MRSA 08/2017 - MUSCULOSKELETAL/RHEUMATOLOGICAL Hx Falls: No - GASTROINTESTINAL Hx Ulcer: Yes - PSYCHIATRIC Hx Substance Use: No - SURGICAL HISTORY Hx Surgeries: Yes Hx Herniorrhaphy: Yes - ANESTHESIA Hx Anesthesia: Yes Hx Anesthesia Reactions: No Meds Allergies/Adverse Reactions: Allergies Allergy/AdvReac Type Severity Reaction Status Date / Time Penicillins Allergy Verified 12/19/17 12:39 - Medications Medications: Current Medications Albumin Human (Albumin Human 25% (12.5 Gm/50 Ml)) 25 gm IV MWF PRN PRN Reason: Other Amiodarone HCl (Cordarone) 200 mg PO DAILY [facility] Last Admin: 12/19/17 16:46 Dose: Not Given Apixaban (Eliquis) 2.5 mg PO Q12 [facility] Last Admin: 12/19/17 21:24 Dose: 2.5 mg Carvedilol (Coreg) 6.25 mg PO BID [facility] Last Admin: 12/19/17 17:13 Dose: 6.25 mg Digoxin (Lanoxin) 0.5 mg PO ONCE ONE Stop: 12/20/17 10:16 Ergocalciferol (Drisdol 50,000 Intl Units Cap) 1 cap PO QWK [facility] Amiodarone HCl 900 mg/ (Dextrose) 500 mls @ 33.33 mls/hr IV .Q15H1M ONE; 1 MG/ MIN PRN Reason: Protocol Stop: 12/20/17 23:39 Sodium Chloride (Sodium Chloride 0.9%) 500 mls @ 1,000 mls/hr IV .Q30M ONE Stop: 12/20/17 10:26 Aztreonam 2 gm/ Sodium (Chloride) 100 mls @ 200 mls/hr IVPB Q12H [facility] PRN Reason: Protocol Vancomycin HCl 1 gm/ Sodium (Chloride) 250 mls @ 166.7 mls/hr IVPB Q24H [facility] PRN Reason: Protocol Metronidazole (Flagyl) 500 mg in 100 mls @ 100 mls/hr IVPB Q8 [facility] PRN Reason: Protocol Insulin Aspart (Novolog) 0 unit SC ACHS [facility] PRN Reason: Protocol Last Admin: 12/20/17 07:32 Dose: Not Given Midodrine (Proamatine) 10 mg PO MWF [facility] Morphine Sulfate (Morphine) 1 mg IVP Q6H PRN PRN Reason: Pain, moderate (4-7) Pantoprazole Sodium (Protonix Ec Tab) 40 mg PO DAILY [facility] Last Admin: 12/19/17 15:36 Dose: 40 mg Potassium Chloride (K-Dur 20 Meq Er Tab) 20 meq PO ONCE ONE Stop: 12/20/17 10:05 Vitamin B Complex/Vit C/Folic Acid (Nephro-Ayo) 1 tab PO 0800 [facility] Physical Exam - Constitutional Appears: No Acute Distress - Head Exam Head Exam: ATRAUMATIC, NORMAL INSPECTION - Eye Exam Eye Exam: EOMI, Normal appearance, PERRL Pupil Exam: NORMAL ACCOMODATION, PERRL - ENT Exam ENT Exam: Mucous Membranes Moist - Respiratory Exam Respiratory Exam: Clear to Auscultation Bilateral - Cardiovascular Exam Cardiovascular Exam: REGULAR RHYTHM, Systolic Murmur. absent: JVD - GI/Abdominal Exam GI & Abdominal Exam: Normal Bowel Sounds Additional comments: well healed midline inscision - Extremities Exam Extremities exam: Positive for: pedal edema - Skin Skin Exam: Dry, Warm Results - Vital Signs Recent Vital Signs: Last Vital Signs Temp 97.5 F L 12/20/17 04:00 Pulse 64 12/20/17 09:13 Resp 16 12/20/17 09:13 BP 104/52 L 12/20/17 09:13 Pulse Ox 100 12/20/17 09:39 - Labs Result Diagrams: 12/20/17 05:50 12/20/17 05:57 Labs: Laboratory Results - last 24 hr 12/19/17 12/19/17 12/19/17 12:49 13:10 13:10 WBC 13.9 H RBC 4.27 L Hgb 13.5 Hct 41.2 MCV 96.4 H MCH 31.7 H MCHC 32.9 L RDW 17.1 H Plt Count 242 MPV 8.0 Neut % (Auto) 66.8 Lymph % (Auto) 25.4 [place] % (Auto) 4.9 Eos % (Auto) 2.1 Baso % (Auto) 0.8 Neut # (Auto) 9.3 H Lymph # (Auto) 3.5 [place] # (Auto) 0.7 Eos # (Auto) 0.3 Baso # (Auto) 0.1 PT 14.5 H INR 1.3 APTT 29 Sodium Potassium Chloride Carbon Dioxide Anion Gap BUN Creatinine Est GFR ( Amer) Est GFR (Non-Af Amer) POC Glucose (mg/dL) 171 H Random Glucose Calcium Phosphorus Magnesium Total Bilirubin AST ALT Alkaline Phosphatase Troponin I NT-Pro-B Natriuret Pep Total Protein Albumin Globulin Albumin/Globulin Ratio 12/19/17 12/19/17 12/19/17 13:57 16:06 21:07 WBC RBC Hgb Hct MCV MCH MCHC RDW Plt Count MPV Neut % (Auto) Lymph % (Auto) [place] % (Auto) Eos % (Auto) Baso % (Auto) Neut # (Auto) Lymph # (Auto) [place] # (Auto) Eos # (Auto) Baso # (Auto) PT INR APTT Sodium 138 Potassium 3.1 L Chloride 94 L Carbon Dioxide 29 Anion Gap 19 BUN 25 H Creatinine 3.2 H Est GFR ( Amer) 23 Est GFR (Non-Af Amer) 19 POC Glucose (mg/dL) 165 H 170 H Random Glucose 152 H Calcium 9.8 Phosphorus Magnesium Total Bilirubin 0.8 AST 100 H ALT 66 Alkaline Phosphatase 96 Troponin I 0.0670 NT-Pro-B Natriuret Pep 25120 H Total Protein 8.4 H Albumin 3.7 Globulin 4.6 H Albumin/Globulin Ratio 0.8 L 12/20/17 12/20/17 12/20/17 05:50 05:57 07:14 WBC 15.2 H RBC 4.18 L Hgb 13.1 Hct 40.1 MCV 96.0 H MCH 31.4 H MCHC 32.7 L RDW 17.2 H Plt Count 235 MPV 8.0 Neut % (Auto) 74.4 Lymph % (Auto) 18.8 L [place] % (Auto) 6.0 Eos % (Auto) 0.3 Baso % (Auto) 0.5 Neut # (Auto) 11.3 H Lymph # (Auto) 2.8 [place] # (Auto) 0.9 H Eos # (Auto) 0.0 Baso # (Auto) 0.1 PT INR APTT Sodium 140 Potassium 3.6 Chloride 93 L Carbon Dioxide 32 H Anion Gap 19 BUN 38 H Creatinine 4.4 H Est GFR ( Amer) 16 Est GFR (Non-Af Amer) 13 POC Glucose (mg/dL) 146 H Random Glucose 146 H Calcium 9.8 Phosphorus 3.6 Magnesium 2.0 Total Bilirubin 0.8 AST 59 D ALT 52 Alkaline Phosphatase 96 Troponin I NT-Pro-B Natriuret Pep Total Protein 8.3 Albumin 3.9 Globulin 4.4 H Albumin/Globulin Ratio 0.9 L Assessment & Plan - Assessment and Plan (Free Text) Assessment: 72 yo man with a history of HTN, mixed hyperlipidemia, AVCD, LBBB, NICM, PAF, ESRD on HD. Now admitted with cardiac arrest. CHF VT/VF LBBB HTN NICM ESRD PLAN: - scheduled for [facility] ICD tomorrow at 3pm at [facility] - HD in the morning tomorrow - [facility].
[2017-12-20] MEDS ORDERED: Potassium Chloride 20 mEq ER Tab PO ONE (10:30)
--- NOTE | 2017-12-20 10:35 | CP.PCM.CON ---
History of Present Illness - History of Present Illness History of Present Illness: I was asked to evaluate patient by the hospitalist team. Patient is a 72 year old male with a history of dilated cardiomyopathy, LBBB, ESRD, previous dobutamine dependence who presents with cardiac arrest. The patient has documented severe LV dsyfunction, and has been managed conservatively. He has been weaned off dobutamine and is now dialysis dependent. The patient was in dialysis when he had a cardiac arrest. He was found to have high degree AV block, LBBB.. He recovered form cardiac arrest after epi, chest compression. Patient is seen in ICU currently. Review of Systems - Review of Systems Systems not reviewed;Unavailable: Acuity of Condition, Unstable Vital Signs, Respiratory Distress, Dementia, Altered Mental Status, Intoxicated, Uncooperative, Psychotic, Intubated, Language Barrier, Other - Constitutional Constitutional: absent: As Per HPI, Anorexia, Chills, Daytime Sleepiness, Excessive Sweating, Fatigue, Fever, Frequent Falls, Headache, Increased Appetite , Lethargy, Malaise, Night Sweats, Snoring, Sleep Apnea, Weight Gain, Weight Loss, Weakness, Other - EENT Eyes: absent: As Per HPI, Blind Spots, Blurred Vision, Change in Vision, Decreased Night Vision, Diplopia, Discharge, Dry Eye, Exophthalmos, Floaters, Irritation, Itchy Eyes, Loss of Peripheral Vision, Pain, Photophobia, Requires Corrective Lenses, Sees Flashes, Spots in Vision, Tunnel Vision, Other Visual Disturbances, Loss of Vision, Other Ears: absent: As Per HPI, Decreased Hearing, Ear Discharge, Ear Pain, Tinnitus, Abnormal Hearing, Disequilibrium, Dizziness, Other Nose/Mouth/Throat: absent: As Per HPI, Epistaxis, Nasal Congestion, Nasal Discharge, Nasal Obstruction, Nasal Trauma, Nose Pain, Post Nasal Drip, Sinus Pain, Sinus Pressure, Bleeding Gums, Change in Voice, Dental Pain, Dry Mouth, Dysphagia, Halitosis, Hoarsness, Lip Swelling, Mouth Lesions, Mouth Pain, Odynophagia, Sore Throat, Throat Swelling, Tongue Swelling, Facial Pain, Neck Pain, Neck Mass, Other - Cardiovascular Cardiovascular: absent: As Per HPI, Acrocyanosis, Chest Pain, Chest Pain at Rest , Chest Pain with Activity, Claudication, Diaphoresis, Dyspnea, Dyspnea on Exertion, Edema, Irregular Heart Rhythm, Pain Radiating to Arm/Neck/Jaw, Leg Edema, Leg Ulcers, Lightheadedness, Orthopnea, Palpitations, Paroxysmal Nocturnal Dyspnea, Pedal Edema, Radiating Pain, Rapid Heart Rate, Slow Heart Rate, Syncope, Other - Respiratory Respiratory: absent: As Per HPI, Cough, Dyspnea, Hemoptysis, Dyspnea on Exertion , Wheezing, Snoring, Stridor, Pain on Inspiration, Chest Congestion, Excessive Mucous Production, Change in Mucous Color, Pain with Coughing, Other - Gastrointestinal Gastrointestinal: absent: As Per HPI, Abdominal Pain, Belching, Bloating, Change in Bowel Habits, Change in Stool Character, Coffee Ground Emesis, Constipation, Cramping, Diarrhea, Dyspepsia, Dysphagia, Early Satiety, Excessive Flatus, Fecal Incontinence, Heartburn, Hematemesis, Hematochezia, Loose Stools, Melena, Nausea, Odynophagia, Temesmus, Vomiting, Other - Musculoskeletal Musculoskeletal: absent: As Per HPI, Abnormal Gait, Arthralgias, Atrophy, Back Pain, Deformity, Joint Swelling, Limited Range of Motion, Loss of Height, Muscle Cramps, Muscle Weakness, Myalgias, Neck Pain, Numbness, Radiating Pain into Limb, Stiffness, Tingling, Other - Integumentary Integumentary: absent: As Per HPI, Acne, Alopecia, Bleeding Lesions, Change in Hair, Change in Nails, Change in Pigmentation, Changing Lesions, Dry Skin, Erythema, Furuncle, Hirsutism, Lesions, New Lesions, Non-Healing Lesions, Photosensitivity, Pruritus, Rash, Skin Pain, Skin Ulcer, Sores, Striae, Swelling , Unusual Bruising, Wounds, Jaundice, Other - Neurological Neurological: absent: As Per HPI, Abnormal Gait, Abnormal Hearing, Abnormal Movements, Abnormal Speech, Behavioral Changes, Burning Sensations, Confusion, Convulsions, Disequilibrium, Dizziness, Numbness, Focal Weakness, Frequent Falls , Headaches, Lack of Coordination, Loss of Vision, Memory Loss, Paresthesias, Radicular Pain, Restless Legs, Sensory Deficit, Syncope, Tingling, Tremor, Vertigo, Weakness, Other Visual Disturbances, Other - Psychiatric Psychiatric: absent: As Per HPI, Abnormal Sleep Pattern, Anhedonia, Anxiety, Auditory Hallucinations, Behavioral Changes, Change in Appetite, Change in Libido, Confusion, Depression, Difficulty Concentrating, Hallucinations, Homicidal Ideation, Hopelessness, Irritability, Memory Loss, Mood Swings, Panic Attacks, Paranoia, Suicidal Ideation, Visual Hallucinations, Tactile Hallucinations, Other - Endocrine Endocrine: absent: As Per HPI, Change in Body Appearance, Change in Libido, Cold Intolorance, Deepening of Voice, Excessive Sweating, Fatigue, Flushing, Heat Intolorance, Increase in Ring/Shoe/Hat Size, Palpitations, Polydipsia, Polyphagia, Polyuria, Other - Hematologic/Lymphatic Hematologic: absent: As Per HPI, Easy Bleeding, Easy Bruising, Lymphadenopathy, Other Past Patient History - Past Social History Smoking Status: Former Smoker - CARDIAC Hx Hypertension: Yes - HEENT Hx Cataracts: Yes (both eyes) - RENAL Hx Chronic Kidney Disease: Yes - ENDOCRINE/METABOLIC Hx Endocrine Disorders: Yes Hx Diabetes Mellitus Type 2: Yes - HEMATOLOGICAL/ONCOLOGICAL Hx Anemia: Yes - INTEGUMENTARY Other/Comment: MRSA 08/2017 - MUSCULOSKELETAL/RHEUMATOLOGICAL Hx Falls: No - GASTROINTESTINAL Hx Ulcer: Yes - PSYCHIATRIC Hx Substance Use: No - SURGICAL HISTORY Hx Surgeries: Yes Hx Herniorrhaphy: Yes - ANESTHESIA Hx Anesthesia: Yes Hx Anesthesia Reactions: No Meds Allergies/Adverse Reactions: Allergies Allergy/AdvReac Type Severity Reaction Status Date / Time Penicillins Allergy Verified 12/19/17 12:39 - Medications Medications: Current Medications Albumin Human (Albumin Human 25% (12.5 Gm/50 Ml)) 25 gm IV MWF PRN PRN Reason: Other Amiodarone HCl (Cordarone) 200 mg PO DAILY [facility] Last Admin: 12/19/17 16:46 Dose: Not Given Apixaban (Eliquis) 2.5 mg PO Q12 [facility] Last Admin: 12/19/17 21:24 Dose: 2.5 mg Carvedilol (Coreg) 6.25 mg PO BID [facility] Last Admin: 12/19/17 17:13 Dose: 6.25 mg Ergocalciferol (Drisdol 50,000 Intl Units Cap) 1 cap PO QWK [facility] Amiodarone HCl 900 mg/ (Dextrose) 500 mls @ 33.33 mls/hr IV .Q15H1M ONE; 1 MG/ MIN PRN Reason: Protocol Stop: 12/20/17 23:39 Sodium Chloride (Sodium Chloride 0.9%) 500 mls @ 1,000 mls/hr IV .Q30M ONE Stop: 12/20/17 10:26 Aztreonam 2 gm/ Sodium (Chloride) 100 mls @ 200 mls/hr IVPB Q12H [facility] PRN Reason: Protocol Vancomycin HCl 1 gm/ Sodium (Chloride) 250 mls @ 166.7 mls/hr IVPB Q24H [facility] PRN Reason: Protocol Metronidazole (Flagyl) 500 mg in 100 mls @ 100 mls/hr IVPB Q8 [facility] PRN Reason: Protocol Insulin Aspart (Novolog) 0 unit SC ACHS [facility] PRN Reason: Protocol Last Admin: 12/20/17 07:32 Dose: Not Given [facility] ([facility]) [facility] Morphine Sulfate (Morphine) 1 mg IVP Q6H PRN PRN Reason: Pain, moderate (4-7) Pantoprazole Sodium (Protonix Ec Tab) 40 mg PO DAILY [facility] Last Admin: 12/19/17 15:36 Dose: 40 mg Potassium Chloride (K-Dur 20 Meq Er Tab) 20 meq PO ONCE ONE Stop: 12/20/17 10:31 Vitamin B Complex/Vit C/Folic Acid (Nephro-Ayo) 1 tab PO 0800 [facility] Physical Exam - Constitutional Appears: Chronically Ill - Head Exam Head Exam: NORMAL INSPECTION - Eye Exam Eye Exam: Normal appearance - ENT Exam ENT Exam: Mucous Membranes Moist - Neck Exam Neck exam: Positive for: Normal Inspection - Respiratory Exam Respiratory Exam: Decreased Breath Sounds - Cardiovascular Exam Cardiovascular Exam: REGULAR RHYTHM - GI/Abdominal Exam GI & Abdominal Exam: Normal Bowel Sounds - Rectal Exam Rectal Exam: Deferred - Extremities Exam Extremities exam: Positive for: pedal edema - Back Exam Back exam: NORMAL INSPECTION - Neurological Exam Neurological exam: Alert, Oriented x3 - Psychiatric Exam Psychiatric exam: Normal Affect - Skin Skin Exam: Normal Color Results - Vital Signs Recent Vital Signs: Last Vital Signs Temp 97.5 F L 12/20/17 04:00 Pulse 64 12/20/17 09:13 Resp 16 12/20/17 09:13 BP 104/52 L 12/20/17 09:13 Pulse Ox 100 12/20/17 09:39 - Labs Result Diagrams: 12/20/17 05:50 12/20/17 05:57 Labs: Laboratory Results - last 24 hr 12/19/17 12/19/17 12/19/17 12:49 13:10 13:10 WBC 13.9 H RBC 4.27 L Hgb 13.5 Hct 41.2 MCV 96.4 H MCH 31.7 H MCHC 32.9 L RDW 17.1 H Plt Count 242 MPV 8.0 Neut % (Auto) 66.8 Lymph % (Auto) 25.4 [place] % (Auto) 4.9 Eos % (Auto) 2.1 Baso % (Auto) 0.8 Neut # (Auto) 9.3 H Lymph # (Auto) 3.5 [place] # (Auto) 0.7 Eos # (Auto) 0.3 Baso # (Auto) 0.1 PT 14.5 H INR 1.3 APTT 29 Sodium Potassium Chloride Carbon Dioxide Anion Gap BUN Creatinine Est GFR ( Amer) Est GFR (Non-Af Amer) POC Glucose (mg/dL) 171 H Random Glucose Calcium Phosphorus Magnesium Total Bilirubin AST ALT Alkaline Phosphatase Troponin I NT-Pro-B Natriuret Pep Total Protein Albumin Globulin Albumin/Globulin Ratio 12/19/17 12/19/17 12/19/17 13:57 16:06 21:07 WBC RBC Hgb Hct MCV MCH MCHC RDW Plt Count MPV Neut % (Auto) Lymph % (Auto) [place] % (Auto) Eos % (Auto) Baso % (Auto) Neut # (Auto) Lymph # (Auto) [place] # (Auto) Eos # (Auto) Baso # (Auto) PT INR APTT Sodium 138 Potassium 3.1 L Chloride 94 L Carbon Dioxide 29 Anion Gap 19 BUN 25 H Creatinine 3.2 H Est GFR ( Amer) 23 Est GFR (Non-Af Amer) 19 POC Glucose (mg/dL) 165 H 170 H Random Glucose 152 H Calcium 9.8 Phosphorus Magnesium Total Bilirubin 0.8 AST 100 H ALT 66 Alkaline Phosphatase 96 Troponin I 0.0670 NT-Pro-B Natriuret Pep 58720 H Total Protein 8.4 H Albumin 3.7 Globulin 4.6 H Albumin/Globulin Ratio 0.8 L 12/20/17 12/20/17 12/20/17 05:50 05:57 07:14 WBC 15.2 H RBC 4.18 L Hgb 13.1 Hct 40.1 MCV 96.0 H MCH 31.4 H MCHC 32.7 L RDW 17.2 H Plt Count 235 MPV 8.0 Neut % (Auto) 74.4 Lymph % (Auto) 18.8 L [place] % (Auto) 6.0 Eos % (Auto) 0.3 Baso % (Auto) 0.5 Neut # (Auto) 11.3 H Lymph # (Auto) 2.8 [place] # (Auto) 0.9 H Eos # (Auto) 0.0 Baso # (Auto) 0.1 PT INR APTT Sodium 140 Potassium 3.6 Chloride 93 L Carbon Dioxide 32 H Anion Gap 19 BUN 38 H Creatinine 4.4 H Est GFR ( Amer) 16 Est GFR (Non-Af Amer) 13 POC Glucose (mg/dL) 146 H Random Glucose 146 H Calcium 9.8 Phosphorus 3.6 Magnesium 2.0 Total Bilirubin 0.8 AST 59 D ALT 52 Alkaline Phosphatase 96 Troponin I NT-Pro-B Natriuret Pep Total Protein 8.3 Albumin 3.9 Globulin 4.4 H Albumin/Globulin Ratio 0.9 L - EKG Data EKG Interpreted by: Myself EKG shows normal: Sinus rhythm - EKG Data EKG Specific Queries [place]/QRS: LBBB Assessment & Plan (1) Cardiac arrest Assessment and Plan: I reviewed the EKG and previous hisotry. Given out of hospital cardiac arrest, chronic systolic dysfunction, LBBB will recommend EP evaluation for AICD implant. I will consult Dr Johnson. Status: Acute (2) Chronic systolic CHF (congestive heart failure), NYHA class 2 Assessment and Plan: as above, will require BiV AICD. Status: Acute
--- NOTE | 2017-12-20 10:49 | CP.PCM.PN ---
Subjective - Date & Time of Evaluation Date of Evaluation: 12/20/17 Time of Evaluation: 09:45 - Subjective Subjective: Cardioversion note Patient developed sustained ventricular tachycardia while I was in the room. He became more dyspneic and developed hypotension. The patient was given Amiodarone 150 mg IV bolus and lidocaine 100 mg IV with no improvement in the ventricular tachycardia. Due to progressive hypotension and hemodynamic instability, the patient verbally agreed to cardioversion. He was given IV sedation by anesthesiology, and synchronized DC cardioversion at 200 J on the biphasic machine was performed successfully. The resultant rhythm was NSR. Objective - Vital Signs/Intake and Output Vital Signs (last 24 hours): Temp Pulse Resp BP Pulse Ox 97.5 F L 64 16 104/52 L 100 12/20/17 04:00 12/20/17 09:13 12/20/17 09:13 12/20/17 09:13 12/20/17 09:39 Intake and Output: 12/20/17 12/20/17 06:59 18:59 Intake Total 50 350 Output Total 0 Balance 50 350 - Medications Medications: Current Medications Albumin Human (Albumin Human 25% (12.5 Gm/50 Ml)) 25 gm IV MWF PRN PRN Reason: Other Amiodarone HCl (Cordarone) 200 mg PO DAILY [facility] Last Admin: 12/19/17 16:46 Dose: Not Given Apixaban (Eliquis) 2.5 mg PO Q12 [facility] Last Admin: 12/19/17 21:24 Dose: 2.5 mg Carvedilol (Coreg) 6.25 mg PO BID [facility] Last Admin: 12/19/17 17:13 Dose: 6.25 mg Ergocalciferol (Drisdol 50,000 Intl Units Cap) 1 cap PO QWK [facility] Amiodarone HCl 900 mg/ (Dextrose) 500 mls @ 33.33 mls/hr IV .Q15H1M ONE; 1 MG/ MIN PRN Reason: Protocol Stop: 12/20/17 23:39 Aztreonam 2 gm/ Sodium (Chloride) 100 mls @ 200 mls/hr IVPB Q12H [facility] PRN Reason: Protocol Vancomycin HCl 1 gm/ Sodium (Chloride) 250 mls @ 166.7 mls/hr IVPB Q24H [facility] PRN Reason: Protocol Metronidazole (Flagyl) 500 mg in 100 mls @ 100 mls/hr IVPB Q8 [facility] PRN Reason: Protocol Insulin Aspart (Novolog) 0 unit SC ACHS [facility] PRN Reason: Protocol Last Admin: 12/20/17 07:32 Dose: Not Given Midodrine (Proamatine) 10 mg PO MWF [facility] Morphine Sulfate (Morphine) 1 mg IVP Q6H PRN PRN Reason: Pain, moderate (4-7) Pantoprazole Sodium (Protonix Ec Tab) 40 mg PO DAILY [facility] Last Admin: 12/19/17 15:36 Dose: 40 mg Vitamin B Complex/Vit C/Folic Acid (Nephro-Ayo) 1 tab PO 0800 [facility] - Labs Labs: 12/20/17 05:50 12/20/17 05:57 PT 14.5 SECONDS (9.7-12.2) H 12/19/17 13:10 INR 1.3 12/19/17 13:10 APTT 29 SECONDS (21-34) 12/19/17 13:10 Assessment and Plan (1) Cardiac arrest Status: Acute (2) Chronic systolic CHF (congestive heart failure), NYHA class 2 Status: Acute
[2017-12-20] MEDS: Pantoprazole 40 mg EC Tab PO SCH (11:17)
[2017-12-20] MEDS: Multivitamin Vitamin B Complex (Nephro-Vite) Tab PO SCH (11:17)
[2017-12-20 11:42] VITALS: PULSE 61
[2017-12-20] MEDS: Vancomycin 1 gm/NS 200 ml 1 GM/200 ML BAG IVPB SCH (12:08)
[2017-12-20] MEDS ORDERED: Sodium Bicarbonate (8.4%) 50 Meq Syringe ONE (13:23)
[2017-12-20] MEDS: metroNIDAZOLE IV 500 mg/100 ml 500 MG/100 ML BAG IVPB SCH ×2 (14:20→21:15)
[2017-12-20] MEDS: Aztreonam 2 GM in Sodium Chloride 0.9% 100 ML IVPB SCH (15:28)
--- NOTE | 2017-12-20 15:48 | CP.PCM.PN ---
Subjective - Date & Time of Evaluation Date of Evaluation: 12/20/17 Time of Evaluation: 15:46 - Subjective Subjective: Nephrology Consultation Note: Assessment: critical cardiac arrest V tach s/p cardioversion End stage renal disease (N18.6) dependence on hemodialysis (Z99.2) (MWF) via permacath Anemia (D64.9), chronic low BP/hypotension, chronic sys CHF LVEF <20%, DM cardio-renal syndrome Plan: No acute need for dialysis today. Will plan for next dialysis Sunday. Continue with Nephrovite 1 tab/day. PRBC as needed for anemia. Last Hb 13, plan for INOCENCIO if Hb <10 last phos level 3.6 maintain hemodynamics stable. Patient not on RAAS sofia as BP usually low. he takes midodrine Glycemic control, Dialysis consistent diet Further work up/management as per primary team Dose meds/antibiotics (if needed) for ESRD status. Avoid fleets enema/magnesium based laxatives. d/w ICU team [place] [facility] Thanks for allowing me to participate in care of your patient. Will follow patient with you. Please call if any Qs. Dr Darryl Dunn Office: [phone] Chief Complaint;chest soreness HPI: Pt is a72 M with hx of JERI (cardio-renal syndrome, ATN) on CKD 3 in may 2017 which was dialysis dependent and now ESRD on hemodialysis (MWF) via permacath @[facility], last dialysis today, chronic anemia, DM, chronic low BP, chronic severe systolic CHF (LVEF <20%) was undergoing dialysis today but towards the end of HD he became unresponsive. he was resuscitated with CPR, shocks and brought to hospital for further eval has chronic hoarseness of voice since prolonged intubation last year c/o chest soreness and pain after CPR. denies SOB ROS: Cardiovascular: c/o chest soreness Pulmonary: No shortness of breath Gastrointestinal: denies abdominal pain No nausea. No vomiting. Genitourinary: No pain while urinating. Denies blood in urine. makes small amount of urine All other negative except as mentioned in HPI Physical Examination: General Appearance: Comfortable, in no acute respiratory distress, co-operative . ill appearing Vitals reviewed and noted as below Head; Atraumatic, normocephalic ENT: no ulcers no thrush. Tongue is midline. Oropharynx: no rash or ulcers.has hoarse voice EYES: Pupils are equal, round and reactive to light accommodation. Eye muscles and extraocular movement intact. Sclera is anicteric. Neck; supple no lymphadenopathy, no thyromegaly or bruit Lungs: Normal respiratory rate/effort. Breath sounds bilateral equal and basal crackles Heart: Normal rate. s1s2 normal. No rub or gallop. Extremities: no edema. No varicose veins. Neurological: Patient is alert, awake and oriented to person, place and time. No focal deficit. Strength bilateral appropriate and equal Skin: Warm and dry. Normal turgor. No rash. Palpitation: Normal elasticity for age Abdomen: Abdomen is soft. Bowel sounds +. There is no abdominal tenderness, no guarding/rigidity or organomegaly Psych: normal insight and normal affect/mood MSK: no joint tenderness or swelling. Digits and nails normal, no deformity : kidney or bladder not palpable Access: permacath. left AVF maturing. LUE edema improved Labs/imaging reviewed. Past medical history, past surgical history, family history, social history, allergy reviewed and noted as below Family Hx: no hx of CKD. Non contributory Objective - Vital Signs/Intake and Output Vital Signs (last 24 hours): Temp Pulse Resp BP Pulse Ox 97.6 F 63 14 107/47 L 100 12/20/17 12:00 12/20/17 15:15 12/20/17 15:15 12/20/17 15:15 12/20/17 14:55 Intake and Output: 12/20/17 12/20/17 06:59 18:59 Intake Total 50 1050 Output Total 0 Balance 50 1050 - Medications Medications: Current Medications Albumin Human (Albumin Human 25% (12.5 Gm/50 Ml)) 25 gm IV MWF PRN PRN Reason: hypotension SBP <90 DBP <50 Amiodarone HCl (Cordarone) 200 mg PO DAILY [facility] Last Admin: 12/20/17 11:15 Dose: Not Given Carvedilol (Coreg) 6.25 mg PO BID [facility] Last Admin: 12/20/17 11:15 Dose: Not Given Ergocalciferol (Drisdol 50,000 Intl Units Cap) 1 cap PO QWK [facility] Last Admin: 12/20/17 11:16 Dose: 1 cap Amiodarone HCl 900 mg/ (Dextrose) 500 mls @ 33.33 mls/hr IV .Q15H1M ONE; 1 MG/ MIN PRN Reason: Protocol Stop: 12/20/17 23:39 Aztreonam 2 gm/ Sodium (Chloride) 100 mls @ 200 mls/hr IVPB Q12H [facility] PRN Reason: Protocol Last Admin: 12/20/17 15:28 Dose: 200 mls/hr Vancomycin/Sodium Chloride (Vancomycin 1 Gm/Ns 200 Ml) 1 gm in 200 mls @ 166.7 mls/hr IVPB Q24H [facility] PRN Reason: Protocol Stop: 12/25/17 12:01 Last Admin: 12/20/17 12:08 Dose: 166.7 mls/hr Metronidazole (Flagyl) 500 mg in 100 mls @ 100 mls/hr IVPB Q8 [facility] PRN Reason: Protocol Last Admin: 12/20/17 14:20 Dose: 100 mls/hr Insulin Aspart (Novolog) 0 unit SC ACHS [facility] PRN Reason: Protocol Last Admin: 12/20/17 11:50 Dose: Not Given Midodrine (Proamatine) 10 mg PO MWF [facility] Morphine Sulfate (Morphine) 1 mg IVP Q6H PRN PRN Reason: Pain, moderate (4-7) Pantoprazole Sodium (Protonix Ec Tab) 40 mg PO DAILY [facility] Last Admin: 12/20/17 11:17 Dose: 40 mg Vitamin B Complex/Vit C/Folic Acid (Nephro-Ayo) 1 tab PO 0800 [facility] Last Admin: 12/20/17 11:17 Dose: 1 tab - Labs Labs: 12/20/17 05:50 12/20/17 05:57 PT 14.5 SECONDS (9.7-12.2) H 12/19/17 13:10 INR 1.3 12/19/17 13:10 APTT 29 SECONDS (21-34) 12/19/17 13:10
--- NOTE | 2017-12-20 16:01 | CP.PCM.PN ---
Subjective - Date & Time of Evaluation Date of Evaluation: 12/20/17 Time of Evaluation: 10:00 - Subjective Subjective: Patient earlier in the morning had a long run of VTach that required defibrillation as it was not responding to amiodarone IV. Following this he was back in NSR. There are currently plans to have patient lv an AICD, at some point will be moving [place] [facility] [place]. When I saw and examined him, he was awake and alert. He looked very sad, he would only follow very simple commands. Objective - Vital Signs/Intake and Output Vital Signs (last 24 hours): Temp Pulse Resp BP Pulse Ox 97.6 F 63 14 107/47 L 100 12/20/17 12:00 12/20/17 15:15 12/20/17 15:15 12/20/17 15:15 12/20/17 14:55 Intake and Output: 12/20/17 12/20/17 06:59 18:59 Intake Total 50 1050 Output Total 0 Balance 50 1050 - Medications Medications: Current Medications Albumin Human (Albumin Human 25% (12.5 Gm/50 Ml)) 25 gm IV MWF PRN PRN Reason: hypotension SBP <90 DBP <50 Amiodarone HCl (Cordarone) 200 mg PO DAILY [facility] Last Admin: 12/20/17 11:15 Dose: Not Given Carvedilol (Coreg) 6.25 mg PO BID [facility] Last Admin: 12/20/17 11:15 Dose: Not Given Ergocalciferol (Drisdol 50,000 Intl Units Cap) 1 cap PO QWK [facility] Last Admin: 12/20/17 11:16 Dose: 1 cap Amiodarone HCl 900 mg/ (Dextrose) 500 mls @ 33.33 mls/hr IV .Q15H1M ONE; 1 MG/ MIN PRN Reason: Protocol Stop: 12/20/17 23:39 Aztreonam 2 gm/ Sodium (Chloride) 100 mls @ 200 mls/hr IVPB Q12H [facility] PRN Reason: Protocol Last Admin: 12/20/17 15:28 Dose: 200 mls/hr Vancomycin/Sodium Chloride (Vancomycin 1 Gm/Ns 200 Ml) 1 gm in 200 mls @ 166.7 mls/hr IVPB Q24H [facility] PRN Reason: Protocol Stop: 12/25/17 12:01 Last Admin: 12/20/17 12:08 Dose: 166.7 mls/hr Metronidazole (Flagyl) 500 mg in 100 mls @ 100 mls/hr IVPB Q8 [facility] PRN Reason: Protocol Last Admin: 12/20/17 14:20 Dose: 100 mls/hr Insulin Aspart (Novolog) 0 unit SC ACHS [facility] PRN Reason: Protocol Last Admin: 12/20/17 11:50 Dose: Not Given Midodrine (Proamatine) 10 mg PO MWF [facility] Morphine Sulfate (Morphine) 1 mg IVP Q6H PRN PRN Reason: Pain, moderate (4-7) Pantoprazole Sodium (Protonix Ec Tab) 40 mg PO DAILY [facility] Last Admin: 12/20/17 11:17 Dose: 40 mg Vitamin B Complex/Vit C/Folic Acid (Nephro-Ayo) 1 tab PO 0800 [facility] Last Admin: 12/20/17 11:17 Dose: 1 tab - Labs Labs: 12/20/17 05:50 12/20/17 05:57 PT 14.5 SECONDS (9.7-12.2) H 12/19/17 13:10 INR 1.3 12/19/17 13:10 APTT 29 SECONDS (21-34) 12/19/17 13:10 - Constitutional Appears: Chronically Ill - ENT Exam ENT Exam: Mucous Membranes Moist - Respiratory Exam Respiratory Exam: Decreased Breath Sounds - Cardiovascular Exam Cardiovascular Exam: Irregular Rhythm - GI/Abdominal Exam GI & Abdominal Exam: Soft, Normal Bowel Sounds - Neurological Exam Neurological Exam: Alert, Awake Neuro motor strength exam: Left Upper Extremity: 4, Right Upper Extremity: 4 - Psychiatric Exam Psychiatric exam: Depressed, Flat Affect - Skin Skin Exam: Pallor, Warm Assessment and Plan - Assessment and Plan (Free Text) Assessment: 1 Witnessed cardiac arrest while at his outpatient HD center due to Ventricaular tachycardia/Ventricular fibrillation 12/20: He had another episode this morning that required defibrillation. Per cardiology the patient needs AICD, and transfer [place] [facility] [place] He is NPO and Eliquis is on hold. 2 ESRD on HD. 12/20: As mentioned previously he does have an AV graft that needs to be repaired - at this time he is getting HD via a permacath. 3 Low blood pressures 12/20: As mentioned previously the patient is known to have a very low EF that is less than 20%. He is on midodrine. Currently not on DEYSI/ARB due to low BP 4
--- NOTE | 2017-12-20 17:13 | CP.CCUPN ---
<Lalitha Winkler - Last Filed: 12/20/17 17:36> CCU Subjective - Physician Review Subjective (Free Text): 12/20/17 17:12 Patient seen and examined at bedside this morning. Per nursing no acute events overnight. At time of examination, patient stated that he was still having chest soreness, denied any other complaints. Later in the morning patient developed sustained ventricular tachycardia while Dr Desai was at the bedside. He was given Amiodarone 150 mg IV bolus and lidocaine 100 mg IV with no improvement in the ventricular tachycardia. Patient agreed to cardioversion , He was given IV sedation by anesthesiology, and synchronized DC cardioversion at 200 J on the biphasic machine was performed successfully. The resultant rhythm was NSR. CCU Objective - Vital Signs / Intake & Output Vital Signs (Last 4 hours): Vital Signs Pulse Resp BP Pulse Ox 12/20/17 15:15 63 14 107/47 L 12/20/17 14:55 67 16 116/53 L 100 12/20/17 14:35 66 19 112/53 L 100 12/20/17 14:15 63 17 107/47 L 12/20/17 13:55 65 26 H 112/51 L 100 12/20/17 13:35 61 15 106/51 L 100 12/20/17 13:15 62 15 105/50 L 100 Intake and Output (Last 8hrs): Intake & Output 12/20/17 12/20/17 12/20/17 06:59 14:59 22:59 Intake Total 0 1050 0 Balance 0 1050 0 Weight 71.3 kg Intake: Intake, IV Amount 650 Right Hand 650 Oral 0 400 0 - Medications Active Medications: Active Medications Generic Name Dose Route Start Last Admin Trade Name Freq PRN Reason Stop Dose Admin Albumin Human 25 gm 12/21/17 09:00 Albumin Human 25% (12.5 Gm/50 Ml) IV MWF PRN hypotension SBP <90 DBP <50 Amiodarone HCl 200 mg 12/19/17 16:00 12/20/17 11:15 Cordarone PO Not Given DAILY DEVAUGHN Carvedilol 6.25 mg 12/19/17 18:00 12/20/17 11:15 Coreg PO Not Given BID [facility]AUGHN Ergocalciferol 1 cap 12/20/17 10:00 12/20/17 11:16 Drisdol 50,000 Intl Units Cap PO 1 cap QWK [facility]AUGHN Administration Amiodarone HCl 900 mg/ 500 mls @ 33.33 mls/hr 12/20/17 08:39 Dextrose IV 12/20/17 23:39 .[id number] ONE Protocol 1 MG/MIN Aztreonam 2 gm/ Sodium 100 mls @ 200 mls/hr 12/20/17 16:00 12/20/17 15:28 Chloride IVPB 200 mls/hr Q12H [facility]AUGHN Administration Protocol Vancomycin/Sodium Chloride 1 gm in 200 mls @ 166.7 mls/hr 12/20/17 12:00 12:08 Vancomycin 1 Gm/Ns 200 Ml IVPB 12/25/17 12:01 166.7 mls/hr Q24H [facility]AUGHN Administration Protocol Metronidazole 500 mg in 100 mls @ 100 mls/hr 12/20/17 14:00 12/20/17 14:20 Flagyl IVPB 100 mls/hr Q8 [facility]AG[facility] Administration Protocol Insulin Aspart 0 unit 12/19/17 16:30 12/20/17 16:20 Novolog SC Not Given ACHS [facility]AUGH[facility] Protocol Midodrine 10 mg 12/24/17 09:00 Proamatine PO MWF [facility]AU[facility]N Morphine Sulfate 1 mg 12/19/17 15:04 Morphine IVP Q6H PRN Pain, moderate (4-7) Pantoprazole Sodium 40 mg 12/19/17 15:30 12/20/17 11:17 Protonix Ec Tab PO 40 mg DAILY [facility]AUGHN Administration Vitamin B Complex/Vit C/Folic Acid 1 tab 12/20/17 08:00 12/20/17 11:17 Nephro-Ayo PO 1 tab 0800 DEVAUGHN Administration - Patient Studies Lab Studies: Lab Studies 12/20/17 12/20/17 12/20/17 Range/Units 16:05 11:32 11:05 WBC (4.8-10.8) K/uL RBC (4.40-5.90) Mil/uL Hgb (12.0-18.0) g/dL Hct (35.0-51.0) % MCV (80.0-94.0) fL MCH (27.0-31.0) pg MCHC (33.0-37.0) g/dL RDW (11.5-14.5) % Plt Count (130-400) K/uL MPV (7.2-11.7) fL Neut % (Auto) (50.0-75.0) % Lymph % (Auto) (20.0-40.0) % Ogle % (Auto) (0.0-10.0) % Eos % (Auto) (0.0-4.0) % Baso % (Auto) (0.0-2.0) % Neut # (Auto) (1.8-7.0) K/uL Lymph # (Auto) (1.0-4.3) K/uL Ogle # (Auto) (0.0-0.8) K/uL Eos # (Auto) (0.0-0.7) K/uL Baso # (Auto) (0.0-0.2) K/uL Sodium (132-148) mmol/L Potassium (3.6-5.2) mmol/L Chloride (98-107) mmol/L Carbon Dioxide (22-30) mmol/L Anion Gap (10-20) BUN (9-20) mg/dL Creatinine (0.8-1.5) mg/dL Est GFR ( Amer) Est GFR (Non-Af Amer) POC Glucose (mg/dL) 168 H 120 H (65-110) mg/dL Random Glucose (75-110) mg/dL Lactic Acid 1.1 (0.7-2.1) mmol/L Calcium (8.6-10.4) mg/dl Phosphorus (2.5-4.5) mg/dL Magnesium (1.6-2.3) mg/dL Total Bilirubin (0.2-1.3) mg/dL AST (17-59) U/L ALT (21-72) U/L Alkaline Phosphatase (38-126) U/L Total Protein (6.3-8.3) g/dL Albumin (3.5-5.0) g/dL Globulin (2.2-3.9) gm/dL Albumin/Globulin Ratio (1.0-2.1) 12/20/17 12/20/17 12/20/17 Range/Units 07:14 05:57 05:50 WBC 15.2 H (4.8-10.8) K/uL RBC 4.18 L (4.40-5.90) Mil/uL Hgb 13.1 (12.0-18.0) g/dL Hct 40.1 (35.0-51.0) % MCV 96.0 H (80.0-94.0) fL MCH 31.4 H (27.0-31.0) pg MCHC 32.7 L (33.0-37.0) g/dL RDW 17.2 H (11.5-14.5) % Plt Count 235 (130-400) K/uL MPV 8.0 (7.2-11.7) fL Neut % (Auto) 74.4 (50.0-75.0) % Lymph % (Auto) 18.8 L (20.0-40.0) % Ogle % (Auto) 6.0 (0.0-10.0) % Eos % (Auto) 0.3 (0.0-4.0) % Baso % (Auto) 0.5 (0.0-2.0) % Neut # (Auto) 11.3 H (1.8-7.0) K/uL Lymph # (Auto) 2.8 (1.0-4.3) K/uL Ogle # (Auto) 0.9 H (0.0-0.8) K/uL Eos # (Auto) 0.0 (0.0-0.7) K/uL Baso # (Auto) 0.1 (0.0-0.2) K/uL Sodium 140 (132-148) mmol/L Potassium 3.6 (3.6-5.2) mmol/L Chloride 93 L (98-107) mmol/L Carbon Dioxide 32 H (22-30) mmol/L Anion Gap 19 (10-20) BUN 38 H (9-20) mg/dL Creatinine 4.4 H (0.8-1.5) mg/dL Est GFR ( Amer) 16 Est GFR (Non-Af Amer) 13 POC Glucose (mg/dL) 146 H (65-110) mg/dL Random Glucose 146 H (75-110) mg/dL Lactic Acid (0.7-2.1) mmol/L Calcium 9.8 (8.6-10.4) mg/dl Phosphorus 3.6 (2.5-4.5) mg/dL Magnesium 2.0 (1.6-2.3) mg/dL Total Bilirubin 0.8 (0.2-1.3) mg/dL AST 59 D (17-59) U/L ALT 52 (21-72) U/L Alkaline Phosphatase 96 (38-126) U/L Total Protein 8.3 (6.3-8.3) g/dL Albumin 3.9 (3.5-5.0) g/dL Globulin 4.4 H (2.2-3.9) gm/dL Albumin/Globulin Ratio 0.9 L (1.0-2.1) 12/19/17 Range/Units 21:07 WBC (4.8-10.8) K/uL RBC (4.40-5.90) Mil/uL Hgb (12.0-18.0) g/dL Hct (35.0-51.0) % MCV (80.0-94.0) fL MCH (27.0-31.0) pg MCHC (33.0-37.0) g/dL RDW (11.5-14.5) % Plt Count (130-400) K/uL MPV (7.2-11.7) fL Neut % (Auto) (50.0-75.0) % Lymph % (Auto) (20.0-40.0) % Ogle % (Auto) (0.0-10.0) % Eos % (Auto) (0.0-4.0) % Baso % (Auto) (0.0-2.0) % Neut # (Auto) (1.8-7.0) K/uL Lymph # (Auto) (1.0-4.3) K/uL Ogle # (Auto) (0.0-0.8) K/uL Eos # (Auto) (0.0-0.7) K/uL Baso # (Auto) (0.0-0.2) K/uL Sodium (132-148) mmol/L Potassium (3.6-5.2) mmol/L Chloride (98-107) mmol/L Carbon Dioxide (22-30) mmol/L Anion Gap (10-20) BUN (9-20) mg/dL Creatinine (0.8-1.5) mg/dL Est GFR ( Amer) Est GFR (Non-Af Amer) POC Glucose (mg/dL) 170 H (65-110) mg/dL Random Glucose (75-110) mg/dL Lactic Acid (0.7-2.1) mmol/L Calcium (8.6-10.4) mg/dl Phosphorus (2.5-4.5) mg/dL Magnesium (1.6-2.3) mg/dL Total Bilirubin (0.2-1.3) mg/dL AST (17-59) U/L ALT (21-72) U/L Alkaline Phosphatase (38-126) U/L Total Protein (6.3-8.3) g/dL Albumin (3.5-5.0) g/dL Globulin (2.2-3.9) gm/dL Albumin/Globulin Ratio (1.0-2.1) Laboratory Results - last 24 hr 12/19/17 12/20/17 12/20/17 21:07 05:50 05:57 WBC 15.2 H RBC 4.18 L Hgb 13.1 Hct 40.1 MCV 96.0 H MCH 31.4 H MCHC 32.7 L RDW 17.2 H Plt Count 235 MPV 8.0 Neut % (Auto) 74.4 Lymph % (Auto) 18.8 L Ogle % (Auto) 6.0 Eos % (Auto) 0.3 Baso % (Auto) 0.5 Neut # (Auto) 11.3 H Lymph # (Auto) 2.8 Ogle # (Auto) 0.9 H Eos # (Auto) 0.0 Baso # (Auto) 0.1 Sodium 140 Potassium 3.6 Chloride 93 L Carbon Dioxide 32 H Anion Gap 19 BUN 38 H Creatinine 4.4 H Est GFR ( Amer) 16 Est GFR (Non-Af Amer) 13 POC Glucose (mg/dL) 170 H Random Glucose 146 H Lactic Acid Calcium 9.8 Phosphorus 3.6 Magnesium 2.0 Total Bilirubin 0.8 AST 59 D ALT 52 Alkaline Phosphatase 96 Total Protein 8.3 Albumin 3.9 Globulin 4.4 H Albumin/Globulin Ratio 0.9 L 12/20/17 12/20/17 12/20/17 07:14 11:05 11:32 WBC RBC Hgb Hct MCV MCH MCHC RDW Plt Count MPV Neut % (Auto) Lymph % (Auto) Ogle % (Auto) Eos % (Auto) Baso % (Auto) Neut # (Auto) Lymph # (Auto) Ogle # (Auto) Eos # (Auto) Baso # (Auto) Sodium Potassium Chloride Carbon Dioxide Anion Gap BUN Creatinine Est GFR ( Amer) Est GFR (Non-Af Amer) POC Glucose (mg/dL) 146 H 120 H Random Glucose Lactic Acid 1.1 Calcium Phosphorus Magnesium Total Bilirubin AST ALT Alkaline Phosphatase Total Protein Albumin Globulin Albumin/Globulin Ratio 12/20/17 16:05 WBC RBC Hgb Hct MCV MCH MCHC RDW Plt Count MPV Neut % (Auto) Lymph % (Auto) Ogle % (Auto) Eos % (Auto) Baso % (Auto) Neut # (Auto) Lymph # (Auto) Ogle # (Auto) Eos # (Auto) Baso # (Auto) Sodium Potassium Chloride Carbon Dioxide Anion Gap BUN Creatinine Est GFR ( Amer) Est GFR (Non-Af Amer) POC Glucose (mg/dL) 168 H Random Glucose Lactic Acid Calcium Phosphorus Magnesium Total Bilirubin AST ALT Alkaline Phosphatase Total Protein Albumin Globulin Albumin/Globulin Ratio EKG/Cardiology Studies: Cardiology / EKG Studies 12/20/17 08:45 EKG [ELECTROCARDIOGRAM] Stat Comment: Mode Of Transportation: Reason For Exam: Arryhthmia, Fingerstick Blood Sugar Results: 168 Critical Care Progress Note - Nutrition Nutrition: Nutrition Category Date Time Status Renal Diet [DIET] Diets 12/20/17 Dinner Active Assessment/Plan - Assessment and Plan (Free Text) Assessment: Patient is a 72 year old Male with past medical history of DM Type 2, ESRD on HD MWF, chronic low BPs, CHF with LVEF <20% presented to the ED s/p Cardiac arrest while getting hemodialysis. Patient admitted to the ICU for closer monitoring Neurology: -Patient is AAOx3 -Speaking in clear sentences, answering questions appropriately -Admitted for closer monitoring Cardiology: -Patient is s/p cardiac arrest -Patient was cardioverted at the bedside this morning -Gave Digoxin 0.5mg PO x 1 dose, NS bolus 500cc -Will continue Coreg 6.25mg PO BID, Amiodarone 200mg PO daily -History of CHF with LVEF<20%, BNP on admission 776[address] -Echo ordered, f/u official report -Morphine 1mg Q4H prn pain -Midodrine 10mg PO MWF -Plan to transfer patient to [facility] [place] tomorrow for AICD placement -Cardiology on consult, Dr Desai, help appreciated Respiratory: -Supplemental O2 -CXR showed subsegmental atelectasis versus early infiltrate at right base. Mild congestive change. -Started on Avelox 2gm Q12H, Vancomycin 1gm Q24H and Flagyl 500mg Q8H for possible aspiration pneumonia Renal: -Hx of ESRD on HD MWF -Continue Nephrovite 1 tab daily -Continue Cholecalciferol 2000 units daily -Albumin 25gm MWF -Per nephro, no emergent need for dialysis today, will go tomorrow morning -Potassium 3.6 today, will replete -Monitor serial CMPs, magnesium, phosphorus -Renal Diet, Nepro supplementation -Nephrology consult, Dr Dunn, help appreciated GI: -Continue Protonix 40mg PO daily -AST/ALT improved: 59/52 -Continue to monitor Heme/Onc: -Patient with history of Chronic Anemia -On ferrous sulfate 325mg PO daily at home -Hemoglobin stable at this time Endocrine: -History of Diabetes Mellitus Type 2 -Low dose ISSleia Infectious Disease: -Patient with leukocytosis 13.9 -> 15.2 -Antibiotics: Vancomycin 1gm Q24H, Avelox 2gm Q12H, Flagyl 500mg Q8H -Will continue to monitor GI/DVT ppx: -Protonix 40mg PO daily -Eliquis 2.5mg PO BID (discontinued for procedure tomorrow) <Dick Aguero - Last Filed: 12/21/17 17:22> CCU Objective - Vital Signs / Intake & Output Intake and Output (Last 8hrs): Intake & Output 12/21/17 12/21/17 12/21/17 06:59 14:59 22:59 Intake Total 350 0 Balance 350 0 Weight 159 lb 9.835 oz 159 lb 9 oz Intake: Intake, IV Amount 200 0 Right Hand 100 Right Wrist 100 0 Oral 150 0 - Medications Active Medications: Active Medications Generic Name Dose Route Start Last Admin Trade Name Freq PRN Reason Stop Dose Admin Albumin Human 25 gm 12/21/17 09:00 Albumin Human 25% (12.5 Gm/50 Ml) IV MWF PRN hypotension SBP <90 DBP <50 Amiodarone HCl 200 mg 12/19/17 16:00 12/21/17 14:39 Cordarone PO Not Given DAILY [facility] Carvedilol 6.25 mg 12/19/17 18:00 12/21/17 14:39 Coreg PO Not Given BID [facility] Ergocalciferol 1 cap 12/20/17 10:00 12/20/17 11:16 Drisdol 50,000 Intl Units Cap PO 1 cap QWK DEVAUGHN Administration Aztreonam 2 gm/ Sodium 100 mls @ 200 mls/hr 12/20/17 16:00 12/21/17 04:20 Chloride IVPB 200 mls/hr Q12H [facility]AUGHN Administration Protocol Vancomycin/Sodium Chloride 1 gm in 200 mls @ 166.7 mls/hr 12/20/17 12:00 12:08 Vancomycin 1 Gm/Ns 200 Ml IVPB 12/25/17 12:01 166.7 mls/hr Q24H [facility] Administration Protocol Metronidazole 500 mg in 100 mls @ 100 mls/hr 12/20/17 14:00 12/21/17 14:39 Flagyl IVPB Not Given Q8 [facility] Protocol Insulin Aspart 0 unit 12/19/17 16:30 12/21/17 14:40 Novolog SC Not Given ACHS [facility] Protocol Midodrine 10 mg 12/24/17 09:00 Proamatine PO MWF [facility] Morphine Sulfate 1 mg 12/19/17 15:04 Morphine IVP Q6H PRN Pain, moderate (4-7) Pantoprazole Sodium 40 mg 12/19/17 15:30 12/20/17 11:17 Protonix Ec Tab PO 40 mg DAILY [facility] Administration Vitamin B Complex/Vit C/Folic Acid 1 tab 12/20/17 08:00 12/21/17 11:09 Nephro-Ayo PO Not Given 0800 [facility] - Patient Studies Lab Studies: Microbiology Studies 12/19/17 Unknown MRSA Culture (Admit) - Final Naris MRSA NOT DETECTED Lab Studies 12/21/17 12/21/17 12/21/17 Range/Units 09:23 09:23 07:16 WBC (4.8-10.8) K/uL RBC (4.40-5.90) Mil/uL Hgb (12.0-18.0) g/dL Hct (35.0-51.0) % MCV (80.0-94.0) fL MCH (27.0-31.0) pg MCHC (33.0-37.0) g/dL RDW (11.5-14.5) % Plt Count (130-400) K/uL MPV (7.2-11.7) fL Neut % (Auto) (50.0-75.0) % Lymph % (Auto) (20.0-40.0) % Ogle % (Auto) (0.0-10.0) % Eos % (Auto) (0.0-4.0) % Baso % (Auto) (0.0-2.0) % Neut # (Auto) (1.8-7.0) K/uL Lymph # (Auto) (1.0-4.3) K/uL Ogle # (Auto) (0.0-0.8) K/uL Eos # (Auto) (0.0-0.7) K/uL Baso # (Auto) (0.0-0.2) K/uL PT (9.7-12.2) SECONDS INR APTT (21-34) SECONDS Sodium (132-148) mmol/L Potassium (3.6-5.2) mmol/L Chloride (98-107) mmol/L Carbon Dioxide (22-30) mmol/L Anion Gap (10-20) BUN (9-20) mg/dL Creatinine (0.8-1.5) mg/dL Est GFR ( Amer) Est GFR (Non-Af Amer) POC Glucose (mg/dL) 151 H (65-110) mg/dL Random Glucose (75-110) mg/dL Calcium (8.6-10.4) mg/dl Phosphorus (2.5-4.5) mg/dL Magnesium (1.6-2.3) mg/dL Total Bilirubin (0.2-1.3) mg/dL AST (17-59) U/L ALT (21-72) U/L Alkaline Phosphatase (38-126) U/L Total Protein (6.3-8.3) g/dL Albumin (3.5-5.0) g/dL Globulin (2.2-3.9) gm/dL Albumin/Globulin Ratio (1.0-2.1) Hep Bs Antigen Negative (NEGATIVE) Hep Bs Antibody Negative (NEGATIVE) Hep B Core IgM Ab Negative (NEGATIVE) 12/21/17 12/21/17 12/21/17 Range/Units 05:21 05:21 05:21 WBC 14.7 H (4.8-10.8) K/uL RBC 3.99 L (4.40-5.90) Mil/uL Hgb 12.6 (12.0-18.0) g/dL Hct 38.1 (35.0-51.0) % MCV 95.6 H (80.0-94.0) fL MCH 31.6 H (27.0-31.0) pg MCHC 33.1 (33.0-37.0) g/dL RDW 17.3 H (11.5-14.5) % Plt Count 242 (130-400) K/uL MPV 7.7 (7.2-11.7) fL Neut % (Auto) 82.7 H (50.0-75.0) % Lymph % (Auto) 10.8 L (20.0-40.0) % Ogle % (Auto) 3.8 (0.0-10.0) % Eos % (Auto) 2.2 (0.0-4.0) % Baso % (Auto) 0.5 (0.0-2.0) % Neut # (Auto) 12.1 H (1.8-7.0) K/uL Lymph # (Auto) 1.6 (1.0-4.3) K/uL Ogle # (Auto) 0.6 (0.0-0.8) K/uL Eos # (Auto) 0.3 (0.0-0.7) K/uL Baso # (Auto) 0.1 (0.0-0.2) K/uL PT 13.0 H (9.7-12.2) SECONDS INR 1.1 APTT 30 (21-34) SECONDS Sodium 140 (132-148) mmol/L Potassium 4.2 (3.6-5.2) mmol/L Chloride 96 L (98-107) mmol/L Carbon Dioxide 30 (22-30) mmol/L Anion Gap 19 (10-20) BUN 46 H (9-20) mg/dL Creatinine 5.4 H (0.8-1.5) mg/dL Est GFR ( Amer) 13 Est GFR (Non-Af Amer) 10 POC Glucose (mg/dL) (65-110) mg/dL Random Glucose 161 H (75-110) mg/dL Calcium 9.3 (8.6-10.4) mg/dl Phosphorus 3.4 (2.5-4.5) mg/dL Magnesium 1.9 (1.6-2.3) mg/dL Total Bilirubin 0.8 (0.2-1.3) mg/dL AST 38 (17-59) U/L ALT 49 (21-72) U/L Alkaline Phosphatase 89 (38-126) U/L Total Protein 7.8 (6.3-8.3) g/dL Albumin 3.6 (3.5-5.0) g/dL Globulin 4.2 H (2.2-3.9) gm/dL Albumin/Globulin Ratio 0.9 L (1.0-2.1) Hep Bs Antigen (NEGATIVE) Hep Bs Antibody (NEGATIVE) Hep B Core IgM Ab (NEGATIVE) 12/20/17 Range/Units 21:06 WBC (4.8-10.8) K/uL RBC (4.40-5.90) Mil/uL Hgb (12.0-18.0) g/dL Hct (35.0-51.0) % MCV (80.0-94.0) fL MCH (27.0-31.0) pg MCHC (33.0-37.0) g/dL RDW (11.5-14.5) % Plt Count (130-400) K/uL MPV (7.2-11.7) fL Neut % (Auto) (50.0-75.0) % Lymph % (Auto) (20.0-40.0) % Ogle % (Auto) (0.0-10.0) % Eos % (Auto) (0.0-4.0) % Baso % (Auto) (0.0-2.0) % Neut # (Auto) (1.8-7.0) K/uL Lymph # (Auto) (1.0-4.3) K/uL Ogle # (Auto) (0.0-0.8) K/uL Eos # (Auto) (0.0-0.7) K/uL Baso # (Auto) (0.0-0.2) K/uL PT (9.7-12.2) SECONDS INR APTT (21-34) SECONDS Sodium (132-148) mmol/L Potassium (3.6-5.2) mmol/L Chloride (98-107) mmol/L Carbon Dioxide (22-30) mmol/L Anion Gap (10-20) BUN (9-20) mg/dL Creatinine (0.8-1.5) mg/dL Est GFR ( Amer) Est GFR (Non-Af Amer) POC Glucose (mg/dL) 183 H (65-110) mg/dL Random Glucose (75-110) mg/dL Calcium (8.6-10.4) mg/dl Phosphorus (2.5-4.5) mg/dL Magnesium (1.6-2.3) mg/dL Total Bilirubin (0.2-1.3) mg/dL AST (17-59) U/L ALT (21-72) U/L Alkaline Phosphatase (38-126) U/L Total Protein (6.3-8.3) g/dL Albumin (3.5-5.0) g/dL Globulin (2.2-3.9) gm/dL Albumin/Globulin Ratio (1.0-2.1) Hep Bs Antigen (NEGATIVE) Hep Bs Antibody (NEGATIVE) Hep B Core IgM Ab (NEGATIVE) Laboratory Results - last 24 hr 12/20/17 12/21/17 12/21/17 21:06 05:21 05:21 WBC 14.7 H RBC 3.99 L Hgb 12.6 Hct 38.1 MCV 95.6 H MCH 31.6 H MCHC 33.1 RDW 17.3 H Plt Count 242 MPV 7.7 Neut % (Auto) 82.7 H Lymph % (Auto) 10.8 L Ogle % (Auto) 3.8 Eos % (Auto) 2.2 Baso % (Auto) 0.5 Neut # (Auto) 12.1 H Lymph # (Auto) 1.6 Ogle # (Auto) 0.6 Eos # (Auto) 0.3 Baso # (Auto) 0.1 PT INR APTT Sodium 140 Potassium 4.2 Chloride 96 L Carbon Dioxide 30 Anion Gap 19 BUN 46 H Creatinine 5.4 H Est GFR ( Amer) 13 Est GFR (Non-Af Amer) 10 POC Glucose (mg/dL) 183 H Random Glucose 161 H Calcium 9.3 Phosphorus 3.4 Magnesium 1.9 Total Bilirubin 0.8 AST 38 ALT 49 Alkaline Phosphatase 89 Total Protein 7.8 Albumin 3.6 Globulin 4.2 H Albumin/Globulin Ratio 0.9 L Hep Bs Antigen Hep Bs Antibody Hep B Core IgM Ab 12/21/17 12/21/17 12/21/17 05:21 07:16 09:23 WBC RBC Hgb Hct MCV MCH MCHC RDW Plt Count MPV Neut % (Auto) Lymph % (Auto) Ogle % (Auto) Eos % (Auto) Baso % (Auto) Neut # (Auto) Lymph # (Auto) Ogle # (Auto) Eos # (Auto) Baso # (Auto) PT 13.0 H INR 1.1 APTT 30 Sodium Potassium Chloride Carbon Dioxide Anion Gap BUN Creatinine Est GFR ( Amer) Est GFR (Non-Af Amer) POC Glucose (mg/dL) 151 H Random Glucose Calcium Phosphorus Magnesium Total Bilirubin AST ALT Alkaline Phosphatase Total Protein Albumin Globulin Albumin/Globulin Ratio Hep Bs Antigen Negative Hep Bs Antibody Hep B Core IgM Ab Negative 12/21/17 09:23 WBC RBC Hgb Hct MCV MCH MCHC RDW Plt Count MPV Neut % (Auto) Lymph % (Auto) Ogle % (Auto) Eos % (Auto) Baso % (Auto) Neut # (Auto) Lymph # (Auto) Ogle # (Auto) Eos # (Auto) Baso # (Auto) PT INR APTT Sodium Potassium Chloride Carbon Dioxide Anion Gap BUN Creatinine Est GFR ( Amer) Est GFR (Non-Af Amer) POC Glucose (mg/dL) Random Glucose Calcium Phosphorus Magnesium Total Bilirubin AST ALT Alkaline Phosphatase Total Protein Albumin Globulin Albumin/Globulin Ratio Hep Bs Antigen Hep Bs Antibody Negative Hep B Core IgM Ab Critical Care Progress Note - Nutrition Nutrition: Nutrition Category Date Time Status Renal Diet [DIET] Diets 12/20/17 Dinner Active Assessment/Plan - Assessment and Plan (Free Text) Assessment: Above resident note reviewed and verified. Patient with h/o Chronic systolic heart failure, h/o Chronic anemia and having an episode of SVT with wide complex tachycardia. Patient to be transferred for AICD placement. - Date & Time Date: 12/20/17 Time: 17:00
--- NOTE | 2017-12-20 23:48 | CARD ---
APPROVED REPORT EXAM: Two-dimensional and M-mode echocardiogram with Doppler and color Doppler. Other Information Quality : [employer] : INDICATION HISTORY OF CHF, CARDIAC ARREST, ESRD RISK FACTORS Hypertension Diabetes 2D DIMENSIONS IVSd1.1 (0.7-1.1cm)LVDd5.4 (3.9-5.9cm) PWd0.7 (0.7-1.1cm)LVDs4.2 (2.5-4.0cm) FS (%) 21.1 %LVEF (%)35.0 (>50%) M-Mode DIMENSIONS Left Atrium (MM)3.94 (2.5-4.0cm)Aortic Root3.44 (2.2-3.7cm) Aortic Cusp Exc.1.92 (1.5-2.0cm) Aortic Valve AI P 1/2 [id number] Mitral Valve MV E Iqzqvgfz68.2cm/sMV A Lcnencmx44.1cm/sE/A ratio1.9 TDI E/Lateral E'0.0E/Medial E'0.0 Tricuspid Valve TR Peak [id number]/sTR Peak Gr.21mmHg LEFT VENTRICLE The left ventricle is normal size. There is normal left ventricular wall thickness. Left ventricle systolic function is moderately to severely impaired. The Ejection Fraction is 30-35%. There is global hypokinesis of the left ventricle. The left ventricular diastolic function is normal. No left ventricle thrombus noted on this study. RIGHT VENTRICLE The right ventricle is normal size. There is normal right ventricular wall thickness. Systolic function is moderately to severely reduced. ATRIA The left atrium size is normal. The right atrium size is normal. The interatrial septum bows toward right atrium consistent with elevated left atrial pressure. AORTIC VALVE The aortic valve is mildly sclerotic. There is mild to moderate aortic regurgitation. There is no aortic valvular stenosis. There is no aortic valvular vegetation. MITRAL VALVE Mitral annular calcification is mild. There is no evidence of mitral valve prolapse. There is no mitral valve stenosis. Mitral regurgitation is mild. TRICUSPID VALVE The tricuspid valve is normal in structure. There is mild tricuspid regurgitation. Right ventricular systolic pressure is estimated at 30-40 mmHg. There is mild pulmonary hypertension. PULMONIC VALVE The pulmonic valve is not well visualized. There is mild pulmonic valvular regurgitation. GREAT VESSELS The aortic root is normal in size. PERICARDIAL EFFUSION There is no significant pericardial effusion. <Conclusion> Left ventricle systolic function is moderately to severely impaired. The Ejection Fraction is 30-35%. There is mild to moderate aortic regurgitation. Mitral regurgitation is mild. There is mild tricuspid regurgitation. There is mild pulmonary hypertension. There is mild pulmonic valvular regurgitation.
[2017-12-21] MEDS: Aztreonam 2 GM in Sodium Chloride 0.9% 100 ML IVPB SCH ×2 (04:20→18:17)
[2017-12-21 05:24] LABS: BASO # 0.1 K/uL (0.0-0.2); BASO % 0.5 % (0.0-2.0); EOS # 0.3 K/uL (0.0-0.7); EOS % 2.2 % (0.0-4.0); HEMOGLOBIN 12.6 g/dL (12.0-18.0); LYMPH # 1.6 K/uL (1.0-4.3); LYMPH % 10.8 % (20.0-40.0); MEAN CELL VOLUME 95.6 fL (80.0-94.0); MEAN CORPUSCULAR HEMOGLOBIN 31.6 pg (27.0-31.0); MEAN CORPUSCULAR HGB CONC 33.1 g/dL (33.0-37.0); MEAN PLATELET VOLUME 7.7 fL (7.2-11.7); MONO # 0.6 K/uL (0.0-0.8); MONO % 3.8 % (0.0-10.0); NEUT # 12.1 K/uL (1.8-7.0); NEUT % 82.7 % (50.0-75.0); RBC 3.99 Mil/uL (4.40-5.90); RED CELL DISTRIBUTION WIDTH 17.3 % (11.5-14.5); WHITE BLOOD COUNT 14.7 K/uL (4.8-10.8)
[2017-12-21 05:33] LABS: INR 1.1
[2017-12-21 05:41] LABS: ALB/GLOB RATIO 0.9 (1.0-2.1); ALBUMIN 3.6 g/dL (3.5-5.0); CALCIUM 9.3 mg/dl (8.6-10.4)
[2017-12-21] MEDS: metroNIDAZOLE IV 500 mg/100 ml 500 MG/100 ML BAG IVPB SCH ×3 (06:25→21:06)
[2017-12-21] MEDS: (Novolog) Insulin Aspart, Recombinant 100 u/ml 10 ml vial SC SCH ×4 (07:52→21:43)
--- NOTE | 2017-12-21 08:42 | CP.PCM.PN ---
Subjective - Date & Time of Evaluation Date of Evaluation: 12/21/17 Time of Evaluation: 08:40 - Subjective Subjective: Patient awake and conscious and intensive care unit No nausea and no vomiting No chest pain and reported this moment and no unusual events reported overnight Objective - Vital Signs/Intake and Output Vital Signs (last 24 hours): Temp Pulse Resp BP Pulse Ox 97.6 F 82 21 119/61 99 12/21/17 04:00 12/21/17 07:01 12/21/17 07:01 12/21/17 07:01 12/21/17 07:01 Intake and Output: 12/21/17 12/21/17 06:59 18:59 Intake Total 570 0 Balance 570 0 - Medications Medications: Current Medications Albumin Human (Albumin Human 25% (12.5 Gm/50 Ml)) 25 gm IV MWF PRN PRN Reason: hypotension SBP <90 DBP <50 Amiodarone HCl (Cordarone) 200 mg PO DAILY [facility] Last Admin: 12/20/17 11:15 Dose: Not Given Carvedilol (Coreg) 6.25 mg PO BID [facility] Last Admin: 12/20/17 18:05 Dose: Not Given Ergocalciferol (Drisdol 50,000 Intl Units Cap) 1 cap PO QWK [facility] Last Admin: 12/20/17 11:16 Dose: 1 cap Aztreonam 2 gm/ Sodium (Chloride) 100 mls @ 200 mls/hr IVPB Q12H [facility] PRN Reason: Protocol Last Admin: 12/21/17 04:20 Dose: 200 mls/hr Vancomycin/Sodium Chloride (Vancomycin 1 Gm/Ns 200 Ml) 1 gm in 200 mls @ 166.7 mls/hr IVPB Q24H [facility] PRN Reason: Protocol Stop: 12/25/17 12:01 Last Admin: 12/20/17 12:08 Dose: 166.7 mls/hr Metronidazole (Flagyl) 500 mg in 100 mls @ 100 mls/hr IVPB Q8 [facility] PRN Reason: Protocol Last Admin: 12/21/17 06:25 Dose: 100 mls/hr Insulin Aspart (Novolog) 0 unit SC ACHS [facility] PRN Reason: Protocol Last Admin: 12/21/17 07:52 Dose: Not Given Midodrine (Proamatine) 10 mg PO MWF [facility] Morphine Sulfate (Morphine) 1 mg IVP Q6H PRN PRN Reason: Pain, moderate (4-7) Pantoprazole Sodium (Protonix Ec Tab) 40 mg PO DAILY [facility] Last Admin: 12/20/17 11:17 Dose: 40 mg Vitamin B Complex/Vit C/Folic Acid (Nephro-Ayo) 1 tab PO 0800 [facility] Last Admin: 12/20/17 11:17 Dose: 1 tab - Labs Labs: 12/21/17 05:21 12/21/17 05:21 PT 13.0 SECONDS (9.7-12.2) H 12/21/17 05:21 INR 1.1 12/21/17 05:21 APTT 30 SECONDS (21-34) 12/21/17 05:21 - Constitutional Appears: No Acute Distress - ENT Exam ENT Exam: Mucous Membranes Moist - Neck Exam Neck Exam: absent: Lymphadenopathy - Respiratory Exam Respiratory Exam: absent: Chest Wall Tenderness - Cardiovascular Exam Cardiovascular Exam: absent: Gallop, JVD, Rubs - GI/Abdominal Exam GI & Abdominal Exam: Soft, Normal Bowel Sounds. absent: Guarding - Extremities Exam Extremities Exam: absent: Calf Tenderness - Back Exam Back Exam: absent: CVA tenderness (L), CVA tenderness (R) - Neurological Exam Neurological Exam: Alert - Psychiatric Exam Psychiatric exam: Normal Affect - Skin Skin Exam: absent: Cyanosis Assessment and Plan (1) Cardiac arrest Status: Acute (2) Chronic systolic CHF (congestive heart failure), NYHA class 2 Status: Acute (3) End stage renal disease Assessment & Plan: cardiac arrest V tach s/p cardioversion End stage renal disease (N18.6) dependence on hemodialysis (Z99.2) (MWF) via permacath Anemia (D64.9), chronic low BP/hypotension, chronic sys CHF LVEF <20%, DM cardio-renal syndrome Plan: patient is scheduled for hemodialysis with potassium bath 3 mEq Bicarbonate 35 Sodium bath 137 Ultrafiltration about 1500 as tolerated. PRBC as needed for anemia. Last Hb 13, plan for INOCENCIO if Hb <10 last phos level 3.6 maintain hemodynamics stable. Patient not on RAAS sofia as BP usually low. he takes midodrine Glycemic control, Dialysis consistent diet Further work up/management as per primary team Dose meds/antibiotics (if needed) for ESRD status. Avoid fleets enema/magnesium based laxatives. d/w ICU team planned [place] [facility] [place]. Status: Acute
[2017-12-21] MEDS ORDERED: Albumin Human 25% (12.5 gm/50 ml) IV PRN (09:00)
--- NOTE | 2017-12-21 09:06 | CP.PCM.PN ---
Subjective - Date & Time of Evaluation Date of Evaluation: 12/21/17 Time of Evaluation: 09:00 - Subjective Subjective: Patient is pending going to [facility] later today for ICD He was awake, alert, verbal. He was following simple commands in Samoan. He is able to say he has chest tenderness on palpation Currently on the monitoring engineer he appears to be NSR, however per nursing last night he did have an episode of VT that did not require defibrillation He is about to be started on HD right now. Objective - Vital Signs/Intake and Output Vital Signs (last 24 hours): Temp Pulse Resp BP Pulse Ox 97.6 F 82 21 119/61 99 12/21/17 04:00 12/21/17 07:01 12/21/17 07:01 12/21/17 07:01 12/21/17 07:01 Intake and Output: 12/21/17 12/21/17 06:59 18:59 Intake Total 570 0 Balance 570 0 - Medications Medications: Current Medications Albumin Human (Albumin Human 25% (12.5 Gm/50 Ml)) 25 gm IV MWF PRN PRN Reason: hypotension SBP <90 DBP <50 Amiodarone HCl (Cordarone) 200 mg PO DAILY [facility] Last Admin: 12/20/17 11:15 Dose: Not Given Carvedilol (Coreg) 6.25 mg PO BID [facility] Last Admin: 12/20/17 18:05 Dose: Not Given Ergocalciferol (Drisdol 50,000 Intl Units Cap) 1 cap PO QWK [facility] Last Admin: 12/20/17 11:16 Dose: 1 cap Aztreonam 2 gm/ Sodium (Chloride) 100 mls @ 200 mls/hr IVPB Q12H [facility] PRN Reason: Protocol Last Admin: 12/21/17 04:20 Dose: 200 mls/hr Vancomycin/Sodium Chloride (Vancomycin 1 Gm/Ns 200 Ml) 1 gm in 200 mls @ 166.7 mls/hr IVPB Q24H [facility] PRN Reason: Protocol Stop: 12/25/17 12:01 Last Admin: 12/20/17 12:08 Dose: 166.7 mls/hr Metronidazole (Flagyl) 500 mg in 100 mls @ 100 mls/hr IVPB Q8 [facility] PRN Reason: Protocol Last Admin: 12/21/17 06:25 Dose: 100 mls/hr Insulin Aspart (Novolog) 0 unit SC ACHS [facility] PRN Reason: Protocol Last Admin: 12/21/17 07:52 Dose: Not Given Midodrine (Proamatine) 10 mg PO MWF [facility] Morphine Sulfate (Morphine) 1 mg IVP Q6H PRN PRN Reason: Pain, moderate (4-7) Pantoprazole Sodium (Protonix Ec Tab) 40 mg PO DAILY [facility] Last Admin: 12/20/17 11:17 Dose: 40 mg Vitamin B Complex/Vit C/Folic Acid (Nephro-Ayo) 1 tab PO 0800 [facility] Last Admin: 12/20/17 11:17 Dose: 1 tab - Labs Labs: 12/21/17 05:21 12/21/17 05:21 PT 13.0 SECONDS (9.7-12.2) H 12/21/17 05:21 INR 1.1 12/21/17 05:21 APTT 30 SECONDS (21-34) 12/21/17 05:21 - Constitutional Appears: Chronically Ill - Head Exam Head Exam: NORMAL INSPECTION - Eye Exam Eye Exam: EOMI, Normal appearance - ENT Exam ENT Exam: Mucous Membranes Moist - Respiratory Exam Respiratory Exam: Decreased Breath Sounds, NORMAL BREATHING PATTERN - Cardiovascular Exam Cardiovascular Exam: REGULAR RHYTHM - GI/Abdominal Exam GI & Abdominal Exam: Soft, Normal Bowel Sounds. absent: Guarding, Rigid, Tenderness - Neurological Exam Neurological Exam: Alert, Awake Neuro motor strength exam: Left Upper Extremity: 4, Right Upper Extremity: 4 - Psychiatric Exam Psychiatric exam: Depressed, Flat Affect - Skin Skin Exam: Pallor, Warm Assessment and Plan - Assessment and Plan (Free Text) Assessment: 1 Witnessed cardiac arrest while at his outpatient HD center due to Ventricaular tachycardia/Ventricular fibrillation 12/21: Pending transfer to [facility] today 12/20: He had another episode this morning that required defibrillation. Per cardiology the patient needs AICD, and transfer to [facility] for procedure He is NPO and Eliquis is on hold. 2 ESRD on HD. 12/21: 12/20: As mentioned previously he does have an AV graft that needs to be repaired - at this time he is getting HD via a permacath. 3 Low blood pressures 12/21: Currently in the 130s systolic at this time 12/20: As mentioned previously the patient is known to have a very low EF that is less than 20%. He is on midodrine. Currently not on DEYSI/ARB due to low BP
[2017-12-21] MEDS ORDERED: Metoprolol 1 mg/ml Inj IVP ONE (09:26)
[2017-12-21 10:10] LABS: HEPATITIS B SURFACE AG Negative (NEGATIVE)
[2017-12-21 10:15] LABS: HEPATITIS B CORE AB NEGATIVE (NEGATIVE)
[2017-12-21] MEDS: Multivitamin Vitamin B Complex (Nephro-Vite) Tab PO SCH (11:09)
--- NOTE | 2017-12-21 12:35 | CP.CCUPN ---
<Lalitha Winkler - Last Filed: 12/21/17 12:48> CCU Subjective - Physician Review Subjective (Free Text): 12/21/17 12:35 Patient seen and examined at bedside. Per nursing no acute events overnight. Patient is doing well, admits to chest soreness. Patient is NPO for [place] [facility] Patient will be transferred at approximately 1pm today. CCU Objective - Vital Signs / Intake & Output Vital Signs (Last 4 hours): Vital Signs Temp Pulse Pulse Resp BP BP Pulse Ox 12/21/17 12:14 122/64 12/21/17 12:13 72 17 98 12/21/17 12:10 122/64 12/21/17 12:00 71 19 99 12/21/17 11:59 70 20 119/62 94 L 12/21/17 11:55 119/62 12/21/17 11:44 72 17 126/66 98 12/21/17 11:40 126/66 12/21/17 11:29 68 15 118/55 L 99 12/21/17 11:25 118/55 L 12/21/17 11:14 126/65 12/21/17 11:10 126/65 12/21/17 11:00 70 18 99 12/21/17 10:59 128/66 12/21/17 10:58 70 18 99 12/21/17 10:55 128/60 12/21/17 10:44 69 16 118/66 99 12/21/17 10:40 118/66 12/21/17 10:29 71 20 126/55 L 97 12/21/17 10:25 126/55 L 12/21/17 10:14 69 23 128/67 98 12/21/17 10:10 128/67 12/21/17 10:00 67 21 98 12/21/17 09:59 68 22 120/63 97 12/21/17 09:55 120/63 12/21/17 09:44 68 18 135/66 96 12/21/17 09:40 135/66 12/21/17 09:29 80 21 135/71 98 12/21/17 09:25 135/71 12/21/17 09:14 81 21 131/69 97 12/21/17 09:10 98 F 83 83 21 133/70 131/63 98 12/21/17 09:05 98 F 83 21 133/70 12/21/17 09:00 84 13 98 12/21/17 08:59 84 21 133/70 97 Intake and Output (Last 8hrs): Intake & Output 12/20/17 12/21/17 12/21/17 22:59 06:59 14:59 Intake Total 220 350 0 Balance 220 350 0 Weight 72.4 kg 72.376 kg Intake: Intake, IV Amount 100 200 0 Right Hand 100 100 Right Wrist 100 0 Oral 120 150 0 Other: # Voids Urine, Voided 0 # Bowel Movements 0 - Physical Exam Other physical findings (Free Text): - Constitutional Appears: Well, No Acute Distress, Chronically Ill - Head Exam Head Exam: ATRAUMATIC, NORMAL INSPECTION - Eye Exam Eye Exam: EOMI, Normal appearance Pupil Exam: NORMAL ACCOMODATION, PERRL - ENT Exam ENT Exam: Mucous Membranes Moist - Neck Exam Neck exam: Positive for: Full Rom - Respiratory Exam Respiratory Exam: Clear to Auscultation Bilateral, NORMAL BREATHING PATTERN. absent: Rales, Rhonchi, Wheezes - Cardiovascular Exam Cardiovascular Exam: Tachycardia, REGULAR RHYTHM Additional comments: Right chest wall permacath - GI/Abdominal Exam GI & Abdominal Exam: Hernia, Normal Bowel Sounds, Soft. absent: Tenderness - Extremities Exam Extremities exam: Positive for: normal inspection, pedal pulses present. Negative for: calf tenderness - Neurological Exam Neurological exam: Alert, Oriented x3 - Psychiatric Exam Psychiatric exam: Normal Affect, Normal Mood - Skin Skin Exam: Dry, Normal Color, Warm - Medications Active Medications: Active Medications Generic Name Dose Route Start Last Admin Trade Name Freq PRN Reason Stop Dose Admin Albumin Human 25 gm 12/21/17 09:00 Albumin Human 25% (12.5 Gm/50 Ml) IV MWF PRN hypotension SBP <90 DBP <50 Amiodarone HCl 200 mg 12/19/17 16:00 12/20/17 11:15 Cordarone PO Not Given DAILY DEVAUGHN Carvedilol 6.25 mg 12/19/17 18:00 12/20/17 18:05 Coreg PO Not Given BID DEVAUGHN Ergocalciferol 1 cap 12/20/17 10:00 12/20/17 11:16 Drisdol 50,000 Intl Units Cap PO 1 cap QWK DEVAUGHN Administration Aztreonam 2 gm/ Sodium 100 mls @ 200 mls/hr 12/20/17 16:00 12/21/17 04:20 Chloride IVPB 200 mls/hr Q12H [facility] Administration Protocol Vancomycin/Sodium Chloride 1 gm in 200 mls @ 166.7 mls/hr 12/20/17 12:00 12:08 Vancomycin 1 Gm/Ns 200 Ml IVPB 12/25/17 12:01 166.7 mls/hr Q24H [facility] Administration Protocol Metronidazole 500 mg in 100 mls @ 100 mls/hr 12/20/17 14:00 12/21/17 06:25 Flagyl IVPB 100 mls/hr Q8 [facility] Administration Protocol Insulin Aspart 0 unit 12/19/17 16:30 12/21/17 07:52 Novolog SC Not Given ACHS [facility] Protocol Midodrine 10 mg 12/24/17 09:00 Proamatine PO MWF [facility] Morphine Sulfate 1 mg 12/19/17 15:04 Morphine IVP Q6H PRN Pain, moderate (4-7) Pantoprazole Sodium 40 mg 12/19/17 15:30 12/20/17 11:17 Protonix Ec Tab PO 40 mg DAILY [facility] Administration Vitamin B Complex/Vit C/Folic Acid 1 tab 12/20/17 08:00 12/21/17 11:09 Nephro-Ayo PO Not Given 0800 [facility] - Patient Studies Lab Studies: Microbiology Studies 12/19/17 Unknown MRSA Culture (Admit) - Final Naris MRSA NOT DETECTED Lab Studies 12/21/17 12/21/17 12/21/17 Range/Units 09:23 09:23 07:16 WBC (4.8-10.8) K/uL RBC (4.40-5.90) Mil/uL Hgb (12.0-18.0) g/dL Hct (35.0-51.0) % MCV (80.0-94.0) fL MCH (27.0-31.0) pg MCHC (33.0-37.0) g/dL RDW (11.5-14.5) % Plt Count (130-400) K/uL MPV (7.2-11.7) fL Neut % (Auto) (50.0-75.0) % Lymph % (Auto) (20.0-40.0) % [place] % (Auto) (0.0-10.0) % Eos % (Auto) (0.0-4.0) % Baso % (Auto) (0.0-2.0) % Neut # (Auto) (1.8-7.0) K/uL Lymph # (Auto) (1.0-4.3) K/uL [place] # (Auto) (0.0-0.8) K/uL Eos # (Auto) (0.0-0.7) K/uL Baso # (Auto) (0.0-0.2) K/uL PT (9.7-12.2) SECONDS INR APTT (21-34) SECONDS Sodium (132-148) mmol/L Potassium (3.6-5.2) mmol/L Chloride (98-107) mmol/L Carbon Dioxide (22-30) mmol/L Anion Gap (10-20) BUN (9-20) mg/dL Creatinine (0.8-1.5) mg/dL Est GFR ( Amer) Est GFR (Non-Af Amer) POC Glucose (mg/dL) 151 H (65-110) mg/dL Random Glucose (75-110) mg/dL Calcium (8.6-10.4) mg/dl Phosphorus (2.5-4.5) mg/dL Magnesium (1.6-2.3) mg/dL Total Bilirubin (0.2-1.3) mg/dL AST (17-59) U/L ALT (21-72) U/L Alkaline Phosphatase (38-126) U/L Total Protein (6.3-8.3) g/dL Albumin (3.5-5.0) g/dL Globulin (2.2-3.9) gm/dL Albumin/Globulin Ratio (1.0-2.1) Hep Bs Antigen Negative (NEGATIVE) Hep Bs Antibody Negative (NEGATIVE) Hep B Core IgM Ab Negative (NEGATIVE) 12/21/17 12/21/17 12/21/17 Range/Units 05:21 05:21 05:21 WBC 14.7 H (4.8-10.8) K/uL RBC 3.99 L (4.40-5.90) Mil/uL Hgb 12.6 (12.0-18.0) g/dL Hct 38.1 (35.0-51.0) % MCV 95.6 H (80.0-94.0) fL MCH 31.6 H (27.0-31.0) pg MCHC 33.1 (33.0-37.0) g/dL RDW 17.3 H (11.5-14.5) % Plt Count 242 (130-400) K/uL MPV 7.7 (7.2-11.7) fL Neut % (Auto) 82.7 H (50.0-75.0) % Lymph % (Auto) 10.8 L (20.0-40.0) % [place] % (Auto) 3.8 (0.0-10.0) % Eos % (Auto) 2.2 (0.0-4.0) % Baso % (Auto) 0.5 (0.0-2.0) % Neut # (Auto) 12.1 H (1.8-7.0) K/uL Lymph # (Auto) 1.6 (1.0-4.3) K/uL [place] # (Auto) 0.6 (0.0-0.8) K/uL Eos # (Auto) 0.3 (0.0-0.7) K/uL Baso # (Auto) 0.1 (0.0-0.2) K/uL PT 13.0 H (9.7-12.2) SECONDS INR 1.1 APTT 30 (21-34) SECONDS Sodium 140 (132-148) mmol/L Potassium 4.2 (3.6-5.2) mmol/L Chloride 96 L (98-107) mmol/L Carbon Dioxide 30 (22-30) mmol/L Anion Gap 19 (10-20) BUN 46 H (9-20) mg/dL Creatinine 5.4 H (0.8-1.5) mg/dL Est GFR ( Amer) 13 Est GFR (Non-Af Amer) 10 POC Glucose (mg/dL) (65-110) mg/dL Random Glucose 161 H (75-110) mg/dL Calcium 9.3 (8.6-10.4) mg/dl Phosphorus 3.4 (2.5-4.5) mg/dL Magnesium 1.9 (1.6-2.3) mg/dL Total Bilirubin 0.8 (0.2-1.3) mg/dL AST 38 (17-59) U/L ALT 49 (21-72) U/L Alkaline Phosphatase 89 (38-126) U/L Total Protein 7.8 (6.3-8.3) g/dL Albumin 3.6 (3.5-5.0) g/dL Globulin 4.2 H (2.2-3.9) gm/dL Albumin/Globulin Ratio 0.9 L (1.0-2.1) Hep Bs Antigen (NEGATIVE) Hep Bs Antibody (NEGATIVE) Hep B Core IgM Ab (NEGATIVE) 12/20/17 12/20/17 Range/Units 21:06 16:05 WBC (4.8-10.8) K/uL RBC (4.40-5.90) Mil/uL Hgb (12.0-18.0) g/dL Hct (35.0-51.0) % MCV (80.0-94.0) fL MCH (27.0-31.0) pg MCHC (33.0-37.0) g/dL RDW (11.5-14.5) % Plt Count (130-400) K/uL MPV (7.2-11.7) fL Neut % (Auto) (50.0-75.0) % Lymph % (Auto) (20.0-40.0) % [place] % (Auto) (0.0-10.0) % Eos % (Auto) (0.0-4.0) % Baso % (Auto) (0.0-2.0) % Neut # (Auto) (1.8-7.0) K/uL Lymph # (Auto) (1.0-4.3) K/uL [place] # (Auto) (0.0-0.8) K/uL Eos # (Auto) (0.0-0.7) K/uL Baso # (Auto) (0.0-0.2) K/uL PT (9.7-12.2) SECONDS INR APTT (21-34) SECONDS Sodium (132-148) mmol/L Potassium (3.6-5.2) mmol/L Chloride (98-107) mmol/L Carbon Dioxide (22-30) mmol/L Anion Gap (10-20) BUN (9-20) mg/dL Creatinine (0.8-1.5) mg/dL Est GFR ( Amer) Est GFR (Non-Af Amer) POC Glucose (mg/dL) 183 H 168 H (65-110) mg/dL Random Glucose (75-110) mg/dL Calcium (8.6-10.4) mg/dl Phosphorus (2.5-4.5) mg/dL Magnesium (1.6-2.3) mg/dL Total Bilirubin (0.2-1.3) mg/dL AST (17-59) U/L ALT (21-72) U/L Alkaline Phosphatase (38-126) U/L Total Protein (6.3-8.3) g/dL Albumin (3.5-5.0) g/dL Globulin (2.2-3.9) gm/dL Albumin/Globulin Ratio (1.0-2.1) Hep Bs Antigen (NEGATIVE) Hep Bs Antibody (NEGATIVE) Hep B Core IgM Ab (NEGATIVE) Laboratory Results - last 24 hr 12/20/17 12/20/17 12/21/17 16:05 21:06 05:21 WBC 14.7 H RBC 3.99 L Hgb 12.6 Hct 38.1 MCV 95.6 H MCH 31.6 H MCHC 33.1 RDW 17.3 H Plt Count 242 MPV 7.7 Neut % (Auto) 82.7 H Lymph % (Auto) 10.[address] % (Auto) 3.8 Eos % (Auto) 2.2 Baso % (Auto) 0.5 Neut # (Auto) 12.1 H Lymph # (Auto) 1.6 [place] # (Auto) 0.6 Eos # (Auto) 0.3 Baso # (Auto) 0.1 PT INR APTT Sodium Potassium Chloride Carbon Dioxide Anion Gap BUN Creatinine Est GFR ( Amer) Est GFR (Non-Af Amer) POC Glucose (mg/dL) 168 H 183 H Random Glucose Calcium Phosphorus Magnesium Total Bilirubin AST ALT Alkaline Phosphatase Total Protein Albumin Globulin Albumin/Globulin Ratio Hep Bs Antigen Hep Bs Antibody Hep B Core IgM Ab 12/21/17 12/21/17 12/21/17 05:21 05:21 07:16 WBC RBC Hgb Hct MCV MCH MCHC RDW Plt Count MPV Neut % (Auto) Lymph % (Auto) [place] % (Auto) Eos % (Auto) Baso % (Auto) Neut # (Auto) Lymph # (Auto) [place] # (Auto) Eos # (Auto) Baso # (Auto) PT 13.0 H INR 1.1 APTT 30 Sodium 140 Potassium 4.2 Chloride 96 L Carbon Dioxide 30 Anion Gap 19 BUN 46 H Creatinine 5.4 H Est GFR ( Amer) 13 Est GFR (Non-Af Amer) 10 POC Glucose (mg/dL) 151 H Random Glucose 161 H Calcium 9.3 Phosphorus 3.4 Magnesium 1.9 Total Bilirubin 0.8 AST 38 ALT 49 Alkaline Phosphatase 89 Total Protein 7.8 Albumin 3.6 Globulin 4.2 H Albumin/Globulin Ratio 0.9 L Hep Bs Antigen Hep Bs Antibody Hep B Core IgM Ab 12/21/17 12/21/17 09:23 09:23 WBC RBC Hgb Hct MCV MCH MCHC RDW Plt Count MPV Neut % (Auto) Lymph % (Auto) [place] % (Auto) Eos % (Auto) Baso % (Auto) Neut # (Auto) Lymph # (Auto) [place] # (Auto) Eos # (Auto) Baso # (Auto) PT INR APTT Sodium Potassium Chloride Carbon Dioxide Anion Gap BUN Creatinine Est GFR ( Amer) Est GFR (Non-Af Amer) POC Glucose (mg/dL) Random Glucose Calcium Phosphorus Magnesium Total Bilirubin AST ALT Alkaline Phosphatase Total Protein Albumin Globulin Albumin/Globulin Ratio Hep Bs Antigen Negative Hep Bs Antibody Negative Hep B Core IgM Ab Negative Fingerstick Blood Sugar Results: 151 Critical Care Progress Note - Nutrition Nutrition: Nutrition Category Date Time Status Renal Diet [DIET] Diets 12/20/17 Dinner Active Assessment/Plan - Assessment and Plan (Free Text) Assessment: Patient is a 72 year old Male with past medical history of DM Type 2, ESRD on HD MWF, chronic low BPs, CHF with LVEF <20% presented to the ED s/p Cardiac arrest while getting hemodialysis. Patient admitted to the ICU for closer monitoring Neurology: -Patient is AAOx3 -Speaking in clear sentences, answering questions appropriately -[place] be transferred [place] [facility] [place] Cardiology: -Patient is s/p cardiac arrest -Patient with wide complex tachycardia, cardioverted at the bedside this yesterday -Continue Coreg 6.25mg PO BID, Amiodarone 200mg PO daily -History of CHF, BNP on admission [id number] -Echo showed LVEF 30-35% (see full report) -Morphine 1mg Q4H prn pain -Midodrine 10mg PO MWF -Plan to transfer patient [place] [facility] [place] -Cardiology on consult, Dr Desai, help appreciated Respiratory: -Supplemental O2 -CXR showed subsegmental atelectasis versus early infiltrate at right base. Mild congestive change. -Continue Avelox 2gm Q12H, Vancomycin 1gm Q24H and Flagyl 500mg Q8H for possible aspiration pneumonia Renal: -Hx of ESRD on HD MWF -Continue Nephrovite 1 tab daily -Continue Cholecalciferol 2000 units daily -Albumin 25gm MWF -Hemodialysis scheduled for this morning -Monitor serial CMPs, magnesium, phosphorus -Nephrology consult, Dr Dunn, help appreciated GI: -Continue Protonix 40mg PO daily -AST/ALT improved -Continue to monitor -Diet: NPO Heme/Onc: -Patient with history of Chronic Anemia -On ferrous sulfate 325mg PO daily at home -Hemoglobin stable at this time Endocrine: -History of Diabetes Mellitus Type 2 -Low dose ISSleiaS Infectious Disease: -Patient with leukocytosis, improving -Antibiotics: Vancomycin 1gm Q24H, Avelox 2gm Q12H, Flagyl 500mg Q8H -Will continue to monitor GI/DVT ppx: -Protonix 40mg PO daily -Eliquis 2.5mg PO BID (on hold) <Dick Aguero - Last Filed: 12/21/17 17:23> CCU Objective - Vital Signs / Intake & Output Intake and Output (Last 8hrs): Intake & Output 12/21/17 12/21/17 12/21/17 06:59 14:59 22:59 Intake Total 350 0 Balance 350 0 Weight 159 lb 9.835 oz 159 lb 9 oz Intake: Intake, IV Amount 200 0 Right Hand 100 Right Wrist 100 0 Oral 150 0 - Medications Active Medications: Active Medications Generic Name Dose Route Start Last Admin Trade Name Freq PRN Reason Stop Dose Admin Albumin Human 25 gm 12/21/17 09:00 Albumin Human 25% (12.5 Gm/50 Ml) IV MWF PRN hypotension SBP <90 DBP <50 Amiodarone HCl 200 mg 12/19/17 16:00 12/21/17 14:39 Cordarone PO Not Given DAILY [facility] Carvedilol 6.25 mg 12/19/17 18:00 12/21/17 14:39 Coreg PO Not Given BID [facility] Ergocalciferol 1 cap 12/20/17 10:00 12/20/17 11:16 Drisdol 50,000 Intl Units Cap PO 1 cap QWK DEVAUGHN Administration Aztreonam 2 gm/ Sodium 100 mls @ 200 mls/hr 12/20/17 16:00 12/21/17 04:20 Chloride IVPB 200 mls/hr Q12H [facility] Administration Protocol Vancomycin/Sodium Chloride 1 gm in 200 mls @ 166.7 mls/hr 12/20/17 12:00 12:08 Vancomycin 1 Gm/Ns 200 Ml IVPB 12/25/17 12:01 166.7 mls/hr Q24H [facility] Administration Protocol Metronidazole 500 mg in 100 mls @ 100 mls/hr 12/20/17 14:00 12/21/17 14:39 Flagyl IVPB Not Given Q8 [facility] Protocol Insulin Aspart 0 unit 12/19/17 16:30 12/21/17 14:40 Novolog SC Not Given ACHS [facility] Protocol Midodrine 10 mg 12/24/17 09:00 Proamatine PO MWF [facility] Morphine Sulfate 1 mg 12/19/17 15:04 Morphine IVP Q6H PRN Pain, moderate (4-7) Pantoprazole Sodium 40 mg 12/19/17 15:30 12/20/17 11:17 Protonix Ec Tab PO 40 mg DAILY [facility] Administration Vitamin B Complex/Vit C/Folic Acid 1 tab 12/20/17 08:00 12/21/17 11:09 Nephro-Ayo PO Not Given 0800 [facility] - Patient Studies Lab Studies: Microbiology Studies 12/19/17 Unknown MRSA Culture (Admit) - Final Naris MRSA NOT DETECTED Lab Studies 12/21/17 12/21/17 12/21/17 Range/Units 09:23 09:23 07:16 WBC (4.8-10.8) K/uL RBC (4.40-5.90) Mil/uL Hgb (12.0-18.0) g/dL Hct (35.0-51.0) % MCV (80.0-94.0) fL MCH (27.0-31.0) pg MCHC (33.0-37.0) g/dL RDW (11.5-14.5) % Plt Count (130-400) K/uL MPV (7.2-11.7) fL Neut % (Auto) (50.0-75.0) % Lymph % (Auto) (20.0-40.0) % [place] % (Auto) (0.0-10.0) % Eos % (Auto) (0.0-4.0) % Baso % (Auto) (0.0-2.0) % Neut # (Auto) (1.8-7.0) K/uL Lymph # (Auto) (1.0-4.3) K/uL [place] # (Auto) (0.0-0.8) K/uL Eos # (Auto) (0.0-0.7) K/uL Baso # (Auto) (0.0-0.2) K/uL PT (9.7-12.2) SECONDS INR APTT (21-34) SECONDS Sodium (132-148) mmol/L Potassium (3.6-5.2) mmol/L Chloride (98-107) mmol/L Carbon Dioxide (22-30) mmol/L Anion Gap (10-20) BUN (9-20) mg/dL Creatinine (0.8-1.5) mg/dL Est GFR ( Amer) Est GFR (Non-Af Amer) POC Glucose (mg/dL) 151 H (65-110) mg/dL Random Glucose (75-110) mg/dL Calcium (8.6-10.4) mg/dl Phosphorus (2.5-4.5) mg/dL Magnesium (1.6-2.3) mg/dL Total Bilirubin (0.2-1.3) mg/dL AST (17-59) U/L ALT (21-72) U/L Alkaline Phosphatase (38-126) U/L Total Protein (6.3-8.3) g/dL Albumin (3.5-5.0) g/dL Globulin (2.2-3.9) gm/dL Albumin/Globulin Ratio (1.0-2.1) Hep Bs Antigen Negative (NEGATIVE) Hep Bs Antibody Negative (NEGATIVE) Hep B Core IgM Ab Negative (NEGATIVE) 12/21/17 12/21/17 12/21/17 Range/Units 05:21 05:21 05:21 WBC 14.7 H (4.8-10.8) K/uL RBC 3.99 L (4.40-5.90) Mil/uL Hgb 12.6 (12.0-18.0) g/dL Hct 38.1 (35.0-51.0) % MCV 95.6 H (80.0-94.0) fL MCH 31.6 H (27.0-31.0) pg MCHC 33.1 (33.0-37.0) g/dL RDW 17.3 H (11.5-14.5) % Plt Count 242 (130-400) K/uL MPV 7.7 (7.2-11.7) fL Neut % (Auto) 82.7 H (50.0-75.0) % Lymph % (Auto) 10.8 L (20.0-40.0) % [place] % (Auto) 3.8 (0.0-10.0) % Eos % (Auto) 2.2 (0.0-4.0) % Baso % (Auto) 0.5 (0.0-2.0) % Neut # (Auto) 12.1 H (1.8-7.0) K/uL Lymph # (Auto) 1.6 (1.0-4.3) K/uL [place] # (Auto) 0.6 (0.0-0.8) K/uL Eos # (Auto) 0.3 (0.0-0.7) K/uL Baso # (Auto) 0.1 (0.0-0.2) K/uL PT 13.0 H (9.7-12.2) SECONDS INR 1.1 APTT 30 (21-34) SECONDS Sodium 140 (132-148) mmol/L Potassium 4.2 (3.6-5.2) mmol/L Chloride 96 L (98-107) mmol/L Carbon Dioxide 30 (22-30) mmol/L Anion Gap 19 (10-20) BUN 46 H (9-20) mg/dL Creatinine 5.4 H (0.8-1.5) mg/dL Est GFR ( Amer) 13 Est GFR (Non-Af Amer) 10 POC Glucose (mg/dL) (65-110) mg/dL Random Glucose 161 H (75-110) mg/dL Calcium 9.3 (8.6-10.4) mg/dl Phosphorus 3.4 (2.5-4.5) mg/dL Magnesium 1.9 (1.6-2.3) mg/dL Total Bilirubin 0.8 (0.2-1.3) mg/dL AST 38 (17-59) U/L ALT 49 (21-72) U/L Alkaline Phosphatase 89 (38-126) U/L Total Protein 7.8 (6.3-8.3) g/dL Albumin 3.6 (3.5-5.0) g/dL Globulin 4.2 H (2.2-3.9) gm/dL Albumin/Globulin Ratio 0.9 L (1.0-2.1) Hep Bs Antigen (NEGATIVE) Hep Bs Antibody (NEGATIVE) Hep B Core IgM Ab (NEGATIVE) 12/20/17 Range/Units 21:06 WBC (4.8-10.8) K/uL RBC (4.40-5.90) Mil/uL Hgb (12.0-18.0) g/dL Hct (35.0-51.0) % MCV (80.0-94.0) fL MCH (27.0-31.0) pg MCHC (33.0-37.0) g/dL RDW (11.5-14.5) % Plt Count (130-400) K/uL MPV (7.2-11.7) fL Neut % (Auto) (50.0-75.0) % Lymph % (Auto) (20.0-40.0) % [place] % (Auto) (0.0-10.0) % Eos % (Auto) (0.0-4.0) % Baso % (Auto) (0.0-2.0) % Neut # (Auto) (1.8-7.0) K/uL Lymph # (Auto) (1.0-4.3) K/uL [place] # (Auto) (0.0-0.8) K/uL Eos # (Auto) (0.0-0.7) K/uL Baso # (Auto) (0.0-0.2) K/uL PT (9.7-12.2) SECONDS INR APTT (21-34) SECONDS Sodium (132-148) mmol/L Potassium (3.6-5.2) mmol/L Chloride (98-107) mmol/L Carbon Dioxide (22-30) mmol/L Anion Gap (10-20) BUN (9-20) mg/dL Creatinine (0.8-1.5) mg/dL Est GFR ( Amer) Est GFR (Non-Af Amer) POC Glucose (mg/dL) 183 H (65-110) mg/dL Random Glucose (75-110) mg/dL Calcium (8.6-10.4) mg/dl Phosphorus (2.5-4.5) mg/dL Magnesium (1.6-2.3) mg/dL Total Bilirubin (0.2-1.3) mg/dL AST (17-59) U/L ALT (21-72) U/L Alkaline Phosphatase (38-126) U/L Total Protein (6.3-8.3) g/dL Albumin (3.5-5.0) g/dL Globulin (2.2-3.9) gm/dL Albumin/Globulin Ratio (1.0-2.1) Hep Bs Antigen (NEGATIVE) Hep Bs Antibody (NEGATIVE) Hep B Core IgM Ab (NEGATIVE) Laboratory Results - last 24 hr 12/20/17 12/21/17 12/21/17 21:06 05:21 05:21 WBC 14.7 H RBC 3.99 L Hgb 12.6 Hct 38.1 MCV 95.6 H MCH 31.6 H MCHC 33.1 RDW 17.3 H Plt Count 242 MPV 7.7 Neut % (Auto) 82.7 H Lymph % (Auto) 10.[address] [place] % (Auto) 3.8 Eos % (Auto) 2.2 Baso % (Auto) 0.5 Neut # (Auto) 12.1 H Lymph # (Auto) 1.6 [place] # (Auto) 0.6 Eos # (Auto) 0.3 Baso # (Auto) 0.1 PT INR APTT Sodium 140 Potassium 4.2 Chloride 96 L Carbon Dioxide 30 Anion Gap 19 BUN 46 H Creatinine 5.4 H Est GFR ( Amer) 13 Est GFR (Non-Af Amer) 10 POC Glucose (mg/dL) 183 H Random Glucose 161 H Calcium 9.3 Phosphorus 3.4 Magnesium 1.9 Total Bilirubin 0.8 AST 38 ALT 49 Alkaline Phosphatase 89 Total Protein 7.8 Albumin 3.6 Globulin 4.2 H Albumin/Globulin Ratio 0.9 L Hep Bs Antigen Hep Bs Antibody Hep B Core IgM Ab 12/21/17 12/21/17 12/21/17 05:21 07:16 09:23 WBC RBC Hgb Hct MCV MCH MCHC RDW Plt Count MPV Neut % (Auto) Lymph % (Auto) [place] % (Auto) Eos % (Auto) Baso % (Auto) Neut # (Auto) Lymph # (Auto) [place] # (Auto) Eos # (Auto) Baso # (Auto) PT 13.0 H INR 1.1 APTT 30 Sodium Potassium Chloride Carbon Dioxide Anion Gap BUN Creatinine Est GFR ( Amer) Est GFR (Non-Af Amer) POC Glucose (mg/dL) 151 H Random Glucose Calcium Phosphorus Magnesium Total Bilirubin AST ALT Alkaline Phosphatase Total Protein Albumin Globulin Albumin/Globulin Ratio Hep Bs Antigen Negative Hep Bs Antibody Hep B Core IgM Ab Negative 12/21/17 09:23 WBC RBC Hgb Hct MCV MCH MCHC RDW Plt Count MPV Neut % (Auto) Lymph % (Auto) [place] % (Auto) Eos % (Auto) Baso % (Auto) Neut # (Auto) Lymph # (Auto) [place] # (Auto) Eos # (Auto) Baso # (Auto) PT INR APTT Sodium Potassium Chloride Carbon Dioxide Anion Gap BUN Creatinine Est GFR ( Amer) Est GFR (Non-Af Amer) POC Glucose (mg/dL) Random Glucose Calcium Phosphorus Magnesium Total Bilirubin AST ALT Alkaline Phosphatase Total Protein Albumin Globulin Albumin/Globulin Ratio Hep Bs Antigen Hep Bs Antibody Negative Hep B Core IgM Ab Critical Care Progress Note - Nutrition Nutrition: Nutrition Category Date Time Status Renal Diet [DIET] Diets 12/20/17 Dinner Active Assessment/Plan - Assessment and Plan (Free Text) Assessment: Above resident note reviewed and verified. Patient remains stable. [place] [facility] [place] - Date & Time Date: 12/21/17 Time: 17:23
--- NOTE | 2017-12-21 15:01 | CP.PCM.DIS ---
Provider - Provider Date of Admission: 12/19/17 13:13 Attending physician: Tomas Reyes DO Consults: Dr Lloyd Corbin Time Spent in preparation of Discharge (in minutes): 29 Hospital Course - Lab Results Lab Results: Micro Results 12/19/17 Unknown Naris MRSA Culture (Admit) - Final MRSA NOT DETECTED Most Recent Lab Values WBC 14.7 K/uL (4.8-10.8) H 12/21/17 05:21 RBC 3.99 Mil/uL (4.40-5.90) L 12/21/17 05:21 Hgb 12.6 g/dL (12.0-18.0) 12/21/17 05:21 Hct 38.1 % (35.0-51.0) 12/21/17 05:21 MCV 95.6 fL (80.0-94.0) H 12/21/17 05:21 MCH 31.6 pg (27.0-31.0) H 12/21/17 05:21 MCHC 33.1 g/dL (33.0-37.0) 12/21/17 05:21 RDW 17.3 % (11.5-14.5) H 12/21/17 05:21 Plt Count 242 K/uL (130-400) 12/21/17 05:21 MPV 7.7 fL (7.2-11.7) 12/21/17 05:21 Neut % (Auto) 82.7 % (50.0-75.0) H 12/21/17 05:21 Lymph % (Auto) 10.8 % (20.0-40.0) L 12/21/17 05:21 Glenn % (Auto) 3.8 % (0.0-10.0) 12/21/17 05:21 Eos % (Auto) 2.2 % (0.0-4.0) 12/21/17 05:21 Baso % (Auto) 0.5 % (0.0-2.0) 12/21/17 05:21 Neut # (Auto) 12.1 K/uL (1.8-7.0) H 12/21/17 05:21 Lymph # (Auto) 1.6 K/uL (1.0-4.3) 12/21/17 05:21 Glenn # (Auto) 0.6 K/uL (0.0-0.8) 12/21/17 05:21 Eos # (Auto) 0.3 K/uL (0.0-0.7) 12/21/17 05:21 Baso # (Auto) 0.1 K/uL (0.0-0.2) 12/21/17 05:21 PT 13.0 SECONDS (9.7-12.2) H 12/21/17 05:21 INR 1.1 12/21/17 05:21 APTT 30 SECONDS (21-34) 12/21/17 05:21 Sodium 140 mmol/L (132-148) 12/21/17 05:21 Potassium 4.2 mmol/L (3.6-5.2) 12/21/17 05:21 Chloride 96 mmol/L (98-107) L 12/21/17 05:21 Carbon Dioxide 30 mmol/L (22-30) 12/21/17 05:21 Anion Gap 19 (10-20) 12/21/17 05:21 BUN 46 mg/dL (9-20) H 12/21/17 05:21 Creatinine 5.4 mg/dL (0.8-1.5) H 12/21/17 05:21 Est GFR ( Amer) 13 12/21/17 05:21 Est GFR (Non-Af Amer) 10 12/21/17 05:21 POC Glucose (mg/dL) 151 mg/dL (65-110) H 12/21/17 07:16 Random Glucose 161 mg/dL (75-110) H 12/21/17 05:21 Lactic Acid 1.1 mmol/L (0.7-2.1) 12/20/17 11:32 Calcium 9.3 mg/dl (8.6-10.4) 12/21/17 05:21 Phosphorus 3.4 mg/dL (2.5-4.5) 12/21/17 05:21 Magnesium 1.9 mg/dL (1.6-2.3) 12/21/17 05:21 Total Bilirubin 0.8 mg/dL (0.2-1.3) 12/21/17 05:21 AST 38 U/L (17-59) 12/21/17 05:21 ALT 49 U/L (21-72) 12/21/17 05:21 Alkaline Phosphatase 89 U/L (38-126) 12/21/17 05:21 Troponin I 0.0670 ng/mL (0.00-0.120) 12/19/17 13:57 NT-Pro-B Natriuret Pep 64337 pg/mL (0-900) H 12/19/17 13:57 Total Protein 7.8 g/dL (6.3-8.3) 12/21/17 05:21 Albumin 3.6 g/dL (3.5-5.0) 12/21/17 05:21 Globulin 4.2 gm/dL (2.2-3.9) H 12/21/17 05:21 Albumin/Globulin Ratio 0.9 (1.0-2.1) L 12/21/17 05:21 Hep Bs Antigen Negative (NEGATIVE) 12/21/17 09:23 Hep Bs Antibody Negative (NEGATIVE) 12/21/17 09:23 Hep B Core IgM Ab Negative (NEGATIVE) 12/21/17 09:23 - Hospital Course Hospital Course: The patient has left to [facility] for placement of BiV ICD. He might be returning back here to [facility] afterwards. This is a a 72 year old male with past medical history of ESRD on dialysis MWF, diabetes, low blood pressure, and CHF He came from his HD center after the staff there witnessed cardiac arrest. Family had to provide the history. Patient was unresponsive, CPR was initiated. He was given Epi, Shocked twice,CPR, by the time he came to the ER he was sinus rthym and awake. The patient did not remember the events at the HD center. He reported chest pain and tenderness - and this pain was reprodcuible - probably from the CPR he had. The patient was able to speak and follow simple commands in Japanese The patient is known to some of the [facility] consultant physicians and it has been explained that he has a very low EF <20%. While in the ICU he had episodes of VT/VF that required amiodarone as well as lidocane. He required cardioversion. He has been seen by EP cardiology while here and has just been transffered to [facility] for placement of a BiV ICD Discharge Exam - Head Exam Head Exam: NORMAL INSPECTION Discharge Plan - Follow Up Plan Condition: SERIOUS Disposition: HOME/ ROUTINE Instructions: Heart Failure (DC), Heart Failure (GEN), Pacemaker (DC), Pacemaker (GEN), Pulmonary Edema (DC), Pulmonary Edema (GEN), Renal Failure Diet (DC), Ascites (DC), Ascites (GEN)
[2017-12-21] MEDS: Vancomycin 1 gm/NS 200 ml 1 GM/200 ML BAG IVPB SCH (18:18)
[2017-12-21] MEDS: Pantoprazole 40 mg EC Tab PO SCH (18:18)
--- NOTE | 2017-12-21 22:26 | CARD ---
APPROVED REPORT EKG Measurement Heart [id number] <Conclusion> Sinus rhythm with 1st degree AV block LBBB Cannot rule out Anterior infarct, age undetermined Abnormal ECG
--- NOTE | 2017-12-21 22:34 | CARD ---
APPROVED REPORT EKG Measurement Heart [id number] <Conclusion> SInus rhythm w/ complete heart block VPB's in single and multiform couplet IVCD of LBBB pattern Abnormal ECG
[2017-12-22] MEDS: Aztreonam 2 GM in Sodium Chloride 0.9% 100 ML IVPB SCH (04:01)
[2017-12-22] MEDS: metroNIDAZOLE IV 500 mg/100 ml 500 MG/100 ML BAG IVPB SCH (05:04)
[2017-12-22 06:27] LABS: BASO # 0.1 K/uL (0.0-0.2); BASO % 0.9 % (0.0-2.0); EOS # 0.3 K/uL (0.0-0.7); EOS % 3.5 % (0.0-4.0); HEMOGLOBIN 12.1 g/dL (12.0-18.0); LYMPH # 0.9 K/uL (1.0-4.3); LYMPH % 9.9 % (20.0-40.0); MEAN CELL VOLUME 96.5 fL (80.0-94.0); MEAN CORPUSCULAR HEMOGLOBIN 32.3 pg (27.0-31.0); MEAN CORPUSCULAR HGB CONC 33.5 g/dL (33.0-37.0); MEAN PLATELET VOLUME 8.4 fL (7.2-11.7); MONO # 0.5 K/uL (0.0-0.8); MONO % 5.2 % (0.0-10.0); NEUT # 7.7 K/uL (1.8-7.0); NEUT % 80.5 % (50.0-75.0); NRBC % 0.2 % (0.0-2.0); PLATELET COUNT 234 K/uL (130-400); RBC 3.73 Mil/uL (4.40-5.90); RED CELL DISTRIBUTION WIDTH 17.5 % (11.5-14.5); WHITE BLOOD COUNT 9.5 K/uL (4.8-10.8)
[2017-12-22 06:39] LABS: ALB/GLOB RATIO 0.8 (1.0-2.1); ALBUMIN 3.1 g/dL (3.5-5.0); CALCIUM 7.7 mg/dl (8.6-10.4)
[2017-12-22] MEDS: Multivitamin Vitamin B Complex (Nephro-Vite) Tab PO SCH (08:07)
[2017-12-22 08:24] LABS: BANDS 1 % (0-2); EOSINOPHIL 3 % (0-4); LYMPHOCYTE 10 % (20-40); MONOCYTE 4 % (0-10); NEUTROPHIL 82 % (50-75); TOTAL CELLS COUNTED 100
[2017-12-22 08:25] LABS: ANISOCYTOSIS SLIGHT; PLATELET ESTIMATE NORMAL (NORMAL)
[2017-12-22 08:26] LABS: HYPOCHROMIC SLIGHT; POIKILOCYTOSIS SLIGHT
[2017-12-22 08:27] LABS: BURR CELLS SLIGHT; LARGE PLATELETS PRESENT; POLYCHROMIC SLIGHT
[2017-12-22 08:28] LABS: TOXIC GRANULATION PRESENT
[2017-12-22] MEDS: Pantoprazole 40 mg EC Tab PO SCH (10:07)
[2017-12-22] MEDS: (Novolog) Insulin Aspart, Recombinant 100 u/ml 10 ml vial SC SCH ×3 (10:08→21:56)
--- NOTE | 2017-12-22 11:57 | CP.PCM.PN ---
Subjective - Date & Time of Evaluation Date of Evaluation: 12/22/17 Time of Evaluation: 11:30 - Subjective Subjective: Patient returned from [facility] after placement of BI-V/ICD implant. He came back last night. Per staff he did well overnight and no reported issues On telemetry it looks like he's paced in the 70. Earlier today the device was interrogated and I am being told it was doing ok The patient was awake and alert. He was responding to me softly and slowy in Swedish. He still has chest tenderness. He denied abodminal pain. Breathing he said was ok. Objective - Vital Signs/Intake and Output Vital Signs (last 24 hours): Temp Pulse Resp BP Pulse Ox 98.6 F 71 15 105/55 L 98 12/22/17 04:00 12/22/17 07:00 12/22/17 07:00 12/22/17 06:50 12/22/17 07:00 Intake and Output: 12/22/17 12/22/17 06:59 18:59 Intake Total 300 0 Output Total 0 Balance 300 0 - Medications Medications: Current Medications Albumin Human (Albumin Human 25% (12.5 Gm/50 Ml)) 25 gm IV MWF PRN PRN Reason: hypotension SBP <90 DBP <50 Amiodarone HCl (Cordarone) 200 mg PO DAILY [facility] Last Admin: 12/22/17 10:07 Dose: 200 mg Carvedilol (Coreg) 6.25 mg PO BID [facility] Last Admin: 12/22/17 10:08 Dose: Not Given Ergocalciferol (Drisdol 50,000 Intl Units Cap) 1 cap PO QWK [facility] Last Admin: 12/20/17 11:16 Dose: 1 cap Aztreonam 2 gm/ Sodium (Chloride) 100 mls @ 200 mls/hr IVPB Q12H [facility] PRN Reason: Protocol Last Admin: 12/22/17 04:01 Dose: 200 mls/hr Vancomycin/Sodium Chloride (Vancomycin 1 Gm/Ns 200 Ml) 1 gm in 200 mls @ 166.7 mls/hr IVPB Q24H [facility] PRN Reason: Protocol Stop: 12/25/17 12:01 Last Admin: 12/21/17 18:18 Dose: Not Given Metronidazole (Flagyl) 500 mg in 100 mls @ 100 mls/hr IVPB Q8 [facility] PRN Reason: Protocol Last Admin: 12/22/17 05:04 Dose: 100 mls/hr Insulin Aspart (Novolog) 0 unit SC ACHS [facility] PRN Reason: Protocol Last Admin: 12/22/17 10:08 Dose: Not Given Midodrine (Proamatine) 10 mg PO MWF [facility] Morphine Sulfate (Morphine) 1 mg IVP Q6H PRN PRN Reason: Pain, moderate (4-7) Last Admin: 12/22/17 05:17 Dose: 1 mg Pantoprazole Sodium (Protonix Ec Tab) 40 mg PO DAILY [facility] Last Admin: 12/22/17 10:07 Dose: 40 mg Vitamin B Complex/Vit C/Folic Acid (Nephro-Ayo) 1 tab PO 0800 [facility] Last Admin: 12/22/17 08:07 Dose: 1 tab - Labs Labs: 12/22/17 06:14 12/22/17 06:14 PT 13.0 SECONDS (9.7-12.2) H 12/21/17 05:21 INR 1.1 12/21/17 05:21 APTT 30 SECONDS (21-34) 12/21/17 05:21 - Constitutional Appears: No Acute Distress, Chronically Ill - Head Exam Head Exam: NORMAL INSPECTION, NORMOCEPHALIC - Eye Exam Eye Exam: EOMI, Normal appearance - Respiratory Exam Respiratory Exam: Clear to Ausculation Bilateral, NORMAL BREATHING PATTERN - Cardiovascular Exam Cardiovascular Exam: REGULAR RHYTHM - Neurological Exam Neurological Exam: Alert, Awake Neuro motor strength exam: Left Upper Extremity: 4, Right Upper Extremity: 4 - Psychiatric Exam Psychiatric exam: Depressed, Flat Affect - Skin Skin Exam: Pallor, Warm Assessment and Plan - Assessment and Plan (Free Text) Assessment: 1 Witnessed cardiac arrest while at his outpatient HD center due to Ventricaular tachycardia/Ventricular fibrillation 12/22: Returned from [facility] last night. He had a BI-V/ICD placed. It was interrogated this morning. Patient feels ok right now. remains on amiodarone. Lucie remains on hold 12/21: Pending transfer to [facility] today 12/20: He had another episode this morning that required defibrillation. Per cardiology the patient needs AICD, and transfer to [facility] for procedure Lucie is on hold. 2 ESRD on HD. 12/21: 12/20: As mentioned previously he does have an AV graft that needs to be repaired - at this time he is getting HD via a permacath. 3 Low blood pressures 12/22: Systolic in the 100s at this time. 12/21: Currently in the 130s systolic at this time 12/20: As mentioned previously the patient is known to have a very low EF that is less than 20%. He is on midodrine. Currently not on DEYSI/ARB due to low BP 4 Possible aspiration pneumonia 12/22: Patient has been on Aztreonam as well as Flagyl WBC is 9.0 and afebrile
[2017-12-22] MEDS ORDERED: Morphine 4 MG/ML VIAL IVP PRN (12:30)
[2017-12-22] MEDS ORDERED: Oxycodone/Acetaminophen 5/325 mg Tab PO PRN (17:18)
--- NOTE | 2017-12-22 17:45 | CP.PCM.PN ---
Subjective - Date & Time of Evaluation Date of Evaluation: 12/22/17 Time of Evaluation: 17:00 - Subjective Subjective: EP follow-up of VT, CHF and BiV ICD ICD dressing removed. site c/d/i. ICD interrogation shows normal function. Waiting for a walker so he can ambulate outside of his room. Tele: PVC's. No arrhythmias. No palpitations of any duration located in chest No associated dizziness. No modifying factors. Objective - Vital Signs/Intake and Output Vital Signs (last 24 hours): Temp Pulse Resp BP Pulse Ox 98.0 F 73 17 111/55 L 98 12/22/17 12:00 12/22/17 14:00 12/22/17 14:00 12/22/17 13:49 12/22/17 14:00 Intake and Output: 12/22/17 12/22/17 06:59 18:59 Intake Total 300 450 Output Total 0 0 Balance 300 450 - Medications Medications: Current Medications Albumin Human (Albumin Human 25% (12.5 Gm/50 Ml)) 25 gm IV MWF PRN PRN Reason: hypotension SBP <90 DBP <50 Amiodarone HCl (Cordarone) 200 mg PO DAILY [facility] Last Admin: 12/22/17 10:07 Dose: 200 mg Carvedilol (Coreg) 6.25 mg PO BID [facility] Last Admin: 12/22/17 10:08 Dose: Not Given Ergocalciferol (Drisdol 50,000 Intl Units Cap) 1 cap PO QWK [facility] Last Admin: 12/20/17 11:16 Dose: 1 cap Insulin Aspart (Novolog) 0 unit SC ACHS [facility] PRN Reason: Protocol Last Admin: 12/22/17 10:08 Dose: Not Given Midodrine (Proamatine) 10 mg PO F [facility] Morphine Sulfate (Morphine) 1 mg IVP Q6H PRN PRN Reason: Pain, moderate (4-7) Oxycodone/Acetaminophen (Percocet 5/325 Mg Tab) 1 tab PO Q6H PRN PRN Reason: Pain, moderate (4-7) Stop: 12/25/17 17:19 Pantoprazole Sodium (Protonix Ec Tab) 40 mg PO DAILY [facility] Last Admin: 12/22/17 10:07 Dose: 40 mg Vitamin B Complex/Vit C/Folic Acid (Nephro-Ayo) 1 tab PO 0800 [facility] Last Admin: 12/22/17 08:07 Dose: 1 tab - Labs Labs: 12/22/17 06:14 12/22/17 06:14 PT 13.0 SECONDS (9.7-12.2) H 12/21/17 05:21 INR 1.1 12/21/17 05:21 APTT 30 SECONDS (21-34) 12/21/17 05:21 - Constitutional Appears: Well, Non-toxic - Head Exam Head Exam: ATRAUMATIC, NORMAL INSPECTION - Eye Exam Eye Exam: EOMI, Normal appearance, PERRL Pupil Exam: PERRL - ENT Exam ENT Exam: Mucous Membranes Moist - Neck Exam Neck Exam: Full ROM. absent: Tenderness - Respiratory Exam Respiratory Exam: Chest Wall Tenderness, Clear to Ausculation Bilateral - Cardiovascular Exam Cardiovascular Exam: REGULAR RHYTHM Additional comments: ICD site c/d/i - GI/Abdominal Exam GI & Abdominal Exam: Normal Bowel Sounds - Rectal Exam Rectal Exam: Deferred - Neurological Exam Neurological Exam: Alert, Awake - Skin Skin Exam: Dry, Warm Assessment and Plan - Assessment and Plan (Free Text) Plan: 72 yo with h/o NICM, CHF, ESRD on HD LBBB who suffered an out of hospital arrest and in hospital VT arrest. Now on amiodarone and s/p BiV ICD VT: continue amiodarone orally. PAF: continue anticoagulation. May resume tomorrow evening. CHF: stable BiV ICD: routine follow-up as outpatient in 2-4 weeks. ESRD: Getting HD vi right chest permacath. Has two failed attempts to place left AVfisula. Suggest future attempts for long-term access for HD be via right arm. Disop: May DC home from EP perspective
--- NOTE | 2017-12-22 18:17 | CP.CCUPN ---
CCU Subjective - Physician Review Events Since Last Encounter (Free Text): 12/23/17 15:54 Patient is a 72-year-old male with history of end-stage renal disease on dialysis diabetes and hypertension admitted with the heart failure. Patient developed a V. tach arrest, intubated. Patient did recently received defibrillator, stable at this time. Patient has mild hypotension. But the stable clinically. No chest pain or shortness of breath. Spoke to the major league baseball umpire. Patient is cleared from the cardiology point of view On examination: Vital signs the chest good air entry. CV is regular heart sounds Abdomen nontender Assessment and recommendation: Patient is a 72-year-old male with a history of end-stage renal disease on dialysis, hypertension, congestive heart failure, admitted with acute cardiac arrest secondary to V. tach. Patient now having AICD. Continue the current treatment. Dialysis as needed. Follow-up the patient CCU Objective - Vital Signs / Intake & Output Vital Signs (Last 4 hours): Vital Signs Temp Pulse Resp BP Pulse Ox 12/22/17 17:00 70 17 100 12/22/17 16:50 69 16 113/59 L 96 12/22/17 16:00 98.0 F 69 14 97 12/22/17 15:50 67 14 97/48 L 95 12/22/17 15:00 70 20 96 Intake and Output (Last 8hrs): Intake & Output 12/22/17 12/22/17 12/22/17 06:59 14:59 22:59 Intake Total 200 450 Output Total 0 0 0 Balance 200 450 0 Weight 144 lb 13.499 oz Intake: Intake, IV Amount 200 250 Right Wrist 200 250 Oral 0 200 Output: Urine 0 0 0 Urine, Voided 0 0 0 Stool 0 - Medications Active Medications: Active Medications Generic Name Dose Route Start Last Admin Trade Name Freq PRN Reason Stop Dose Admin Albumin Human 25 gm 12/21/17 09:00 Albumin Human 25% (12.5 Gm/50 Ml) IV MWF PRN hypotension SBP <90 DBP <50 Amiodarone HCl 200 mg 12/19/17 16:00 12/22/17 10:07 Cordarone PO 200 mg DAILY [facility] Administration Carvedilol 6.25 mg 12/19/17 18:00 12/22/17 10:08 Coreg PO Not Given BID [facility]AUGHN Ergocalciferol 1 cap 12/20/17 10:00 12/20/17 11:16 Drisdol 50,000 Intl Units Cap PO 1 cap QWK [facility] Administration Insulin Aspart 0 unit 12/19/17 16:30 12/22/17 17:53 Novolog SC Not Given ACHS [facility] Protocol Midodrine 10 mg 12/24/17 09:00 Proamatine PO MWF [facility] Morphine Sulfate 1 mg 12/22/17 12:30 Morphine IVP Q6H PRN Pain, moderate (4-7) Oxycodone/Acetaminophen 1 tab 12/22/17 17:18 Percocet 5/325 Mg Tab PO 12/25/17 17:19 Q6H PRN Pain, moderate (4-7) Pantoprazole Sodium 40 mg 12/19/17 15:30 12/22/17 10:07 Protonix Ec Tab PO 40 mg DAILY [facility] Administration Vitamin B Complex/Vit C/Folic Acid 1 tab 12/20/17 08:00 12/22/17 08:07 Nephro-Ayo PO 1 tab 0800 [facility] Administration - Patient Studies Lab Studies: Lab Studies 12/22/17 12/22/17 12/22/17 Range/Units 16:06 12:02 07:20 WBC (4.8-10.8) K/uL RBC (4.40-5.90) Mil/uL Hgb (12.0-18.0) g/dL Hct (35.0-51.0) % MCV (80.0-94.0) fL MCH (27.0-31.0) pg MCHC (33.0-37.0) g/dL RDW (11.5-14.5) % Plt Count (130-400) K/uL MPV (7.2-11.7) fL Neut % (Auto) (50.0-75.0) % Lymph % (Auto) (20.0-40.0) % [place] % (Auto) (0.0-10.0) % Eos % (Auto) (0.0-4.0) % Baso % (Auto) (0.0-2.0) % Neut # (Auto) (1.8-7.0) K/uL Lymph # (Auto) (1.0-4.3) K/uL [place] # (Auto) (0.0-0.8) K/uL Eos # (Auto) (0.0-0.7) K/uL Baso # (Auto) (0.0-0.2) K/uL Neutrophils % (Manual) (50-75) % Band Neutrophils % (0-2) % Lymphocytes % (Manual) (20-40) % Monocytes % (Manual) (0-10) % Eosinophils % (Manual) (0-4) % Toxic Granulation Platelet Estimate (NORMAL) Large Platelets Polychromasia Hypochromasia (manual) Poikilocytosis (manual Anisocytosis (manual) [place] Cells Sodium (132-148) mmol/L Potassium (3.6-5.2) mmol/L Chloride (98-107) mmol/L Carbon Dioxide (22-30) mmol/L Anion Gap (10-20) BUN (9-20) mg/dL Creatinine (0.8-1.5) mg/dL Est GFR ( Amer) Est GFR (Non-Af Amer) POC Glucose (mg/dL) 187 H 149 H 125 H (65-110) mg/dL Random Glucose (75-110) mg/dL Calcium (8.6-10.4) mg/dl Phosphorus (2.5-4.5) mg/dL Magnesium (1.6-2.3) mg/dL Total Bilirubin (0.2-1.3) mg/dL AST (17-59) U/L ALT (21-72) U/L Alkaline Phosphatase (38-126) U/L Total Protein (6.3-8.3) g/dL Albumin (3.5-5.0) g/dL Globulin (2.2-3.9) gm/dL Albumin/Globulin Ratio (1.0-2.1) 12/22/17 12/22/17 12/21/17 Range/Units 06:14 06:14 21:30 WBC 9.5 (4.8-10.8) K/uL RBC 3.73 L (4.40-5.90) Mil/uL Hgb 12.1 (12.0-18.0) g/dL Hct 36.0 (35.0-51.0) % MCV 96.5 H (80.0-94.0) fL MCH 32.3 H (27.0-31.0) pg MCHC 33.5 (33.0-37.0) g/dL RDW 17.5 H (11.5-14.5) % Plt Count 234 (130-400) K/uL MPV 8.4 (7.2-11.7) fL Neut % (Auto) 80.5 H (50.0-75.0) % Lymph % (Auto) 9.9 L (20.0-40.0) % [place] % (Auto) 5.2 (0.0-10.0) % Eos % (Auto) 3.5 (0.0-4.0) % Baso % (Auto) 0.9 (0.0-2.0) % Neut # (Auto) 7.7 H (1.8-7.0) K/uL Lymph # (Auto) 0.9 L (1.0-4.3) K/uL [place] # (Auto) 0.5 (0.0-0.8) K/uL Eos # (Auto) 0.3 (0.0-0.7) K/uL Baso # (Auto) 0.1 (0.0-0.2) K/uL Neutrophils % (Manual) 82 H (50-75) % Band Neutrophils % 1 (0-2) % Lymphocytes % (Manual) 10 L (20-40) % Monocytes % (Manual) 4 (0-10) % Eosinophils % (Manual) 3 (0-4) % Toxic Granulation Present Platelet Estimate Normal (NORMAL) Large Platelets Present Polychromasia Slight Hypochromasia (manual) Slight Poikilocytosis (manual Slight Anisocytosis (manual) Slight [place] Cells Slight Sodium 137 (132-148) mmol/L Potassium 4.0 (3.6-5.2) mmol/L Chloride 102 (98-107) mmol/L Carbon Dioxide 20 L (22-30) mmol/L Anion Gap 20 (10-20) BUN 30 H (9-20) mg/dL Creatinine 4.0 H (0.8-1.5) mg/dL Est GFR ( Amer) 18 Est GFR (Non-Af Amer) 15 POC Glucose (mg/dL) 217 H (65-110) mg/dL Random Glucose 131 H (75-110) mg/dL Calcium 7.7 L (8.6-10.4) mg/dl Phosphorus 4.3 (2.5-4.5) mg/dL Magnesium 1.6 (1.6-2.3) mg/dL Total Bilirubin 1.1 (0.2-1.3) mg/dL AST 33 (17-59) U/L ALT 40 (21-72) U/L Alkaline Phosphatase 56 (38-126) U/L Total Protein 7.3 (6.3-8.3) g/dL Albumin 3.1 L (3.5-5.0) g/dL Globulin 4.2 H (2.2-3.9) gm/dL Albumin/Globulin Ratio 0.8 L (1.0-2.1) / Range/Units 10:59 WBC (4.8-10.8) K/uL RBC (4.40-5.90) Mil/uL Hgb (12.0-18.0) g/dL Hct (35.0-51.0) % MCV (80.0-94.0) fL MCH (27.0-31.0) pg MCHC (33.0-37.0) g/dL RDW (11.5-14.5) % Plt Count (130-400) K/uL MPV (7.2-11.7) fL Neut % (Auto) (50.0-75.0) % Lymph % (Auto) (20.0-40.0) % [place] % (Auto) (0.0-10.0) % Eos % (Auto) (0.0-4.0) % Baso % (Auto) (0.0-2.0) % Neut # (Auto) (1.8-7.0) K/uL Lymph # (Auto) (1.0-4.3) K/uL [place] # (Auto) (0.0-0.8) K/uL Eos # (Auto) (0.0-0.7) K/uL Baso # (Auto) (0.0-0.2) K/uL Neutrophils % (Manual) (50-75) % Band Neutrophils % (0-2) % Lymphocytes % (Manual) (20-40) % Monocytes % (Manual) (0-10) % Eosinophils % (Manual) (0-4) % Toxic Granulation Platelet Estimate (NORMAL) Large Platelets Polychromasia Hypochromasia (manual) Poikilocytosis (manual Anisocytosis (manual) [place] Cells Sodium (132-148) mmol/L Potassium (3.6-5.2) mmol/L Chloride (98-107) mmol/L Carbon Dioxide (22-30) mmol/L Anion Gap (10-20) BUN (9-20) mg/dL Creatinine (0.8-1.5) mg/dL Est GFR ( Amer) Est GFR (Non-Af Amer) POC Glucose (mg/dL) 121 H (65-110) mg/dL Random Glucose (75-110) mg/dL Calcium (8.6-10.4) mg/dl Phosphorus (2.5-4.5) mg/dL Magnesium (1.6-2.3) mg/dL Total Bilirubin (0.2-1.3) mg/dL AST (17-59) U/L ALT (21-72) U/L Alkaline Phosphatase (38-126) U/L Total Protein (6.3-8.3) g/dL Albumin (3.5-5.0) g/dL Globulin (2.2-3.9) gm/dL Albumin/Globulin Ratio (1.0-2.1) Laboratory Results - last 24 hr 12/21/17 12/21/17 12/22/17 10:59 21:30 06:14 WBC 9.5 RBC 3.73 L Hgb 12.1 Hct 36.0 MCV 96.5 H MCH 32.3 H MCHC 33.5 RDW 17.5 H Plt Count 234 MPV 8.4 Neut % (Auto) 80.5 H Lymph % (Auto) 9.9 L [place] % (Auto) 5.2 Eos % (Auto) 3.5 Baso % (Auto) 0.9 Neut # (Auto) 7.7 H Lymph # (Auto) 0.9 L [place] # (Auto) 0.5 Eos # (Auto) 0.3 Baso # (Auto) 0.1 Neutrophils % (Manual) 82 H Band Neutrophils % 1 Lymphocytes % (Manual) 10 L Monocytes % (Manual) 4 Eosinophils % (Manual) 3 Toxic Granulation Present Platelet Estimate Normal Large Platelets Present Polychromasia Slight Hypochromasia (manual) Slight Poikilocytosis (manual Slight Anisocytosis (manual) Slight [place] Cells Slight Sodium Potassium Chloride Carbon Dioxide Anion Gap BUN Creatinine Est GFR ( Amer) Est GFR (Non-Af Amer) POC Glucose (mg/dL) 121 H 217 H Random Glucose Calcium Phosphorus Magnesium Total Bilirubin AST ALT Alkaline Phosphatase Total Protein Albumin Globulin Albumin/Globulin Ratio 12/22/17 12/22/17 12/22/17 06:14 07:20 12:02 WBC RBC Hgb Hct MCV MCH MCHC RDW Plt Count MPV Neut % (Auto) Lymph % (Auto) [place] % (Auto) Eos % (Auto) Baso % (Auto) Neut # (Auto) Lymph # (Auto) [place] # (Auto) Eos # (Auto) Baso # (Auto) Neutrophils % (Manual) Band Neutrophils % Lymphocytes % (Manual) Monocytes % (Manual) Eosinophils % (Manual) Toxic Granulation Platelet Estimate Large Platelets Polychromasia Hypochromasia (manual) Poikilocytosis (manual Anisocytosis (manual) [place] Cells Sodium 137 Potassium 4.0 Chloride 102 Carbon Dioxide 20 L Anion Gap 20 BUN 30 H Creatinine 4.0 H Est GFR ( Amer) 18 Est GFR (Non-Af Amer) 15 POC Glucose (mg/dL) 125 H 149 H Random Glucose 131 H Calcium 7.7 L Phosphorus 4.3 Magnesium 1.6 Total Bilirubin 1.1 AST 33 ALT 40 Alkaline Phosphatase 56 Total Protein 7.3 Albumin 3.1 L Globulin 4.2 H Albumin/Globulin Ratio 0.8 L 12/22/17 16:06 WBC RBC Hgb Hct MCV MCH MCHC RDW Plt Count MPV Neut % (Auto) Lymph % (Auto) [place] % (Auto) Eos % (Auto) Baso % (Auto) Neut # (Auto) Lymph # (Auto) [place] # (Auto) Eos # (Auto) Baso # (Auto) Neutrophils % (Manual) Band Neutrophils % Lymphocytes % (Manual) Monocytes % (Manual) Eosinophils % (Manual) Toxic Granulation Platelet Estimate Large Platelets Polychromasia Hypochromasia (manual) Poikilocytosis (manual Anisocytosis (manual) [place] Cells Sodium Potassium Chloride Carbon Dioxide Anion Gap BUN Creatinine Est GFR ( Amer) Est GFR (Non-Af Amer) POC Glucose (mg/dL) 187 H Random Glucose Calcium Phosphorus Magnesium Total Bilirubin AST ALT Alkaline Phosphatase Total Protein Albumin Globulin Albumin/Globulin Ratio Fingerstick Blood Sugar Results: 217 Critical Care Progress Note - Nutrition Nutrition: Nutrition Category Date Time Status Renal Diet [DIET] Diets 12/20/17 Dinner Active
--- NOTE | 2017-12-22 20:38 | CP.PCM.PN ---
Subjective - Date & Time of Evaluation Date of Evaluation: 12/22/17 Time of Evaluation: 20:36 - Subjective Subjective: Nephrology Consultation Note: Assessment: Stable cardiac arrest and V tach s/p cardioversion and AICD End stage renal disease (N18.6) dependence on hemodialysis (Z99.2) (MWF) via permacath Anemia (D64.9), chronic low BP/hypotension, chronic sys CHF LVEF <20%, DM cardio-renal syndrome Plan: No acute need for dialysis today. Will plan for next dialysis Sunday. Continue with Nephrovite 1 tab/day. PRBC as needed for anemia. Last Hb 12, plan for INOCENCIO if Hb <10 last phos level 4.3 maintain hemodynamics stable. Patient not on RAAS sofia as BP usually low. he takes midodrine, continue if okay from cardiology perspective Glycemic control, Dialysis consistent diet Further work up/management as per primary team Dose meds/antibiotics (if needed) for ESRD status. Avoid fleets enema/magnesium based laxatives. d/w ICU team Thanks for allowing me to participate in care of your patient. Will follow patient with you. Please call if any Qs. Dr Darryl Dunn Office: [phone] Chief Complaint;chest soreness HPI: Pt is a72 M with hx of JERI (cardio-renal syndrome, ATN) on CKD 3 in may 2017 which was dialysis dependent and now ESRD on hemodialysis (MWF) via permacath @[employer], last dialysis today, chronic anemia, DM, chronic low BP, chronic severe systolic CHF (LVEF <20%) was undergoing dialysis today but towards the end of HD he became unresponsive. he was resuscitated with CPR, shocks and brought to hospital for further eval has chronic hoarseness of voice since prolonged intubation last year c/o chest soreness and pain after CPR. denies SOB ROS: Cardiovascular: c/o chest soreness Pulmonary: No shortness of breath Gastrointestinal: denies abdominal pain No nausea. No vomiting. Genitourinary: No pain while urinating. Denies blood in urine. makes small amount of urine All other negative except as mentioned in HPI. wants to go home Physical Examination: General Appearance: Comfortable, in no acute respiratory distress, co-operative Vitals reviewed and noted as below Head; Atraumatic, normocephalic ENT: no ulcers no thrush. Tongue is midline. Oropharynx: no rash or ulcers.has hoarse voice EYES: Pupils are equal, round and reactive to light accommodation. Eye muscles and extraocular movement intact. Sclera is anicteric. Neck; supple no lymphadenopathy, no thyromegaly or bruit Lungs: Normal respiratory rate/effort. Breath sounds bilateral equal and clear anteriorly Heart: Normal rate. s1s2 normal. No rub or gallop. has AICD Extremities: no edema. No varicose veins. Neurological: Patient is alert, awake and oriented to person, place and time. No focal deficit. Strength bilateral appropriate and equal Skin: Warm and dry. Normal turgor. No rash. Palpitation: Normal elasticity for age Abdomen: Abdomen is soft. Bowel sounds +. There is no abdominal tenderness, no guarding/rigidity or organomegaly Psych: normal insight and normal affect/mood MSK: no joint tenderness or swelling. Digits and nails normal, no deformity : kidney or bladder not palpable Access: permacath. left AVF maturing. LUE edema improved Labs/imaging reviewed. Past medical history, past surgical history, family history, social history, allergy reviewed and noted as below Family Hx: no hx of CKD. Non contributory Objective - Vital Signs/Intake and Output Vital Signs (last 24 hours): Temp Pulse Resp BP Pulse Ox 98.0 F 77 18 112/61 92 L 12/22/17 16:00 12/22/17 19:50 12/22/17 19:50 12/22/17 19:50 12/22/17 19:50 Intake and Output: 12/22/17 12/23/17 18:59 06:59 Intake Total 600 0 Output Total 0 0 Balance 600 0 - Medications Medications: Current Medications Albumin Human (Albumin Human 25% (12.5 Gm/50 Ml)) 25 gm IV MWF PRN PRN Reason: hypotension SBP <90 DBP <50 Amiodarone HCl (Cordarone) 200 mg PO DAILY [facility] Last Admin: 12/22/17 10:07 Dose: 200 mg Carvedilol (Coreg) 6.25 mg PO BID [facility] Last Admin: 12/22/17 18:59 Dose: Not Given Ergocalciferol (Drisdol 50,000 Intl Units Cap) 1 cap PO QWK [facility] Last Admin: 12/20/17 11:16 Dose: 1 cap Insulin Aspart (Novolog) 0 unit SC ACHS [facility] PRN Reason: Protocol Last Admin: 12/22/17 17:53 Dose: Not Given Midodrine (Proamatine) 10 mg PO [facility] Morphine Sulfate (Morphine) 1 mg IVP Q6H PRN PRN Reason: Pain, moderate (4-7) Oxycodone/Acetaminophen (Percocet 5/325 Mg Tab) 1 tab PO Q6H PRN PRN Reason: Pain, moderate (4-7) Stop: 12/25/17 17:19 Pantoprazole Sodium (Protonix Ec Tab) 40 mg PO DAILY [facility] Last Admin: 12/22/17 10:07 Dose: 40 mg Vitamin B Complex/Vit C/Folic Acid (Nephro-Ayo) 1 tab PO 0800 [facility] Last Admin: 12/22/17 08:07 Dose: 1 tab - Labs Labs: 12/22/17 06:14 12/22/17 06:14 PT 13.0 SECONDS (9.7-12.2) H 12/21/17 05:21 INR 1.1 12/21/17 05:21 APTT 30 SECONDS (21-34) 12/21/17 05:21
[2017-12-23] MEDS: (Novolog) Insulin Aspart, Recombinant 100 u/ml 10 ml vial SC SCH ×4 (08:11→21:56)
[2017-12-23] MEDS: Multivitamin Vitamin B Complex (Nephro-Vite) Tab PO SCH (08:14)
--- NOTE | 2017-12-23 08:23 | CP.PCM.PN ---
Subjective - Date & Time of Evaluation Date of Evaluation: 12/23/17 Time of Evaluation: 08:00 - Subjective Subjective: Patient did well overnight. We again discussed in both Burkinan and Swedish. The patient was given the ok for discharge from cardiology view point. When I talk to the patient he explains he was able to briefly stand and go to bedside chair but he felt weak. He has been bed bound since Sunday. He normally uses a cane at home to walk. We will get a PT evaluation as he may need to go to [facility] for a little bit, I explained this to him He still have chest tenderness on exam, probably from the CPR. He denied shortness of breath, denied abdominal pain, denied headache. Abx stopped yesterday. I tried calling family @ [phone] to update them. I left a message Objective - Vital Signs/Intake and Output Vital Signs (last 24 hours): Temp Pulse Resp BP Pulse Ox 98.2 F 65 19 108/50 L 98 12/23/17 04:00 12/23/17 07:49 12/23/17 07:49 12/23/17 07:49 12/23/17 07:49 Intake and Output: 12/23/17 12/23/17 06:59 18:59 Intake Total 200 0 Output Total 0 0 Balance 200 0 - Medications Medications: Current Medications Albumin Human (Albumin Human 25% (12.5 Gm/50 Ml)) 25 gm IV MWF PRN PRN Reason: hypotension SBP <90 DBP <50 Amiodarone HCl (Cordarone) 200 mg PO [facility] Last Admin: 12/22/17 10:07 Dose: 200 mg Carvedilol (Coreg) 6.25 mg PO BID [facility] Last Admin: 12/22/17 18:59 Dose: Not Given Ergocalciferol (Drisdol 50,000 Intl Units Cap) 1 cap PO QWK [facility] Last Admin: 12/20/17 11:16 Dose: 1 cap Insulin Aspart (Novolog) 0 unit SC ACHS [facility] PRN Reason: Protocol Last Admin: 12/23/17 08:11 Dose: Not Given Midodrine (Proamatine) 10 mg PO MWF [facility] Morphine Sulfate (Morphine) 1 mg IVP Q6H PRN PRN Reason: Pain, moderate (4-7) Oxycodone/Acetaminophen (Percocet 5/325 Mg Tab) 1 tab PO Q6H PRN PRN Reason: Pain, moderate (4-7) Stop: 12/25/17 17:19 Pantoprazole Sodium (Protonix Ec Tab) 40 mg PO DAILY [facility] Last Admin: 12/22/17 10:07 Dose: 40 mg Vitamin B Complex/Vit C/Folic Acid (Nephro-Ayo) 1 tab PO 0800 [facility] Last Admin: 12/23/17 08:14 Dose: 1 tab - Labs Labs: 12/22/17 06:14 12/22/17 06:14 PT 13.0 SECONDS (9.7-12.2) H 12/21/17 05:21 INR 1.1 12/21/17 05:21 APTT 30 SECONDS (21-34) 12/21/17 05:21 - Constitutional Appears: No Acute Distress, Unkempt, Chronically Ill - Head Exam Head Exam: NORMAL INSPECTION, NORMOCEPHALIC - Eye Exam Eye Exam: EOMI, Normal appearance - ENT Exam ENT Exam: Mucous Membranes Moist - Respiratory Exam Respiratory Exam: Clear to Ausculation Bilateral - Cardiovascular Exam Cardiovascular Exam: REGULAR RHYTHM - GI/Abdominal Exam GI & Abdominal Exam: Soft, Normal Bowel Sounds - Neurological Exam Neurological Exam: Alert, Awake, Oriented x3 Neuro motor strength exam: Left Upper Extremity: 5, Right Upper Extremity: 5 - Psychiatric Exam Psychiatric exam: Normal Affect, Normal Mood - Skin Skin Exam: Pallor, Warm Assessment and Plan - Assessment and Plan (Free Text) Assessment: 1 Witnessed cardiac arrest while at his outpatient HD center due to Ventricaular tachycardia/Ventricular fibrillation 12/23: Will transfer out of ICU to telemetery. We will need to see what PT says as he may need ALFREDA. Patient normally uses a cane at home. Will resume Eliquis now. Continue with PO Amiodarone. 12/22: Returned from [facility] last [place]. He had a BI-V/ICD placed. It was interrogated this morning. Patient feels ok right now. remains on amiodarone. Eliquis remains on hold 12/21: Pending transfer to [facility] today 12/20: He had another episode this morning that required defibrillation. Per cardiology the patient needs AICD, and transfer to [facility] for procedure Eliquis is on hold. 2 ESRD on HD. 12/21: 12/20: As mentioned previously he does have an AV graft that needs to be repaired - at this time he is getting HD via a permacath. 3 CHF and Low blood pressures 12/23: Now has BI-V/ICD. Not short of breath, continue Coreg. Not on DEYSI/ARB at the moment. Checking a new CXRAY today. 12/22: Systolic in the 100s at this time. 12/21: Currently in the 130s systolic at this time 12/20: As mentioned previously the patient is known to have a very low EF that is less than 20%. He is on midodrine. Currently not on DEYSI/ARB due to low BP 4 Possible aspiration pneumonia 12/23: Abx now off, WBC has been ok. No fevers, he denies shortness of breath. 12/22: Patient has been on Aztreonam as well as Flagyl WBC is 9.0 and afebrile
--- NOTE | 2017-12-23 09:01 | RAD ---
HISTORY: assess for congestion COMPARISON: 12/19/2017. FINDINGS: The right-sided dialysis catheter terminates in the right atrium. LUNGS: There is severe pulmonary venous congestion and redistribution. PLEURA: No significant pleural effusion identified, no pneumothorax apparent. CARDIOVASCULAR: This persistent moderate cardiomegaly. Atherosclerotic aortic arch calcifications are present. . There is stable position of left-sided permanent pacing device. OSSEOUS STRUCTURES: No significant abnormalities. VISUALIZED UPPER ABDOMEN: Normal. OTHER FINDINGS: None. IMPRESSION: Severe pulmonary venous congestion with pulmonary redistribution. Persistent moderate cardiomegaly.
[2017-12-23 09:29] LABS: BASO # 0.1 K/uL (0.0-0.2); BASO % 0.7 % (0.0-2.0); EOS # 0.4 K/uL (0.0-0.7); EOS % 5.3 % (0.0-4.0); HEMOGLOBIN 11.7 g/dL (12.0-18.0); LYMPH # 1.7 K/uL (1.0-4.3); LYMPH % 20.8 % (20.0-40.0); MEAN CELL VOLUME 96.5 fL (80.0-94.0); MEAN CORPUSCULAR HEMOGLOBIN 32.3 pg (27.0-31.0); MEAN CORPUSCULAR HGB CONC 33.5 g/dL (33.0-37.0); MEAN PLATELET VOLUME 7.8 fL (7.2-11.7); MONO # 0.6 K/uL (0.0-0.8); MONO % 7.3 % (0.0-10.0); NEUT # 5.4 K/uL (1.8-7.0); NEUT % 65.9 % (50.0-75.0); RBC 3.62 Mil/uL (4.40-5.90); RED CELL DISTRIBUTION WIDTH 17.6 % (11.5-14.5); WHITE BLOOD COUNT 8.2 K/uL (4.8-10.8)
[2017-12-23] MEDS: Pantoprazole 40 mg EC Tab PO SCH (10:08)
[2017-12-23 10:16] LABS: ALB/GLOB RATIO 0.8 (1.0-2.1); ALBUMIN 3.3 g/dL (3.5-5.0)
--- NOTE | 2017-12-23 15:55 | CP.CCUPN ---
CCU Subjective - Physician Review Events Since Last Encounter (Free Text): 12/23/17 15:54 Patient is a 72-year-old male with history of end-stage renal disease on dialysis diabetes and hypertension admitted with the heart failure. Patient developed a V. tach arrest, intubated. Patient did recently received defibrillator, stable at this time. Patient has mild hypotension. But the stable clinically. No chest pain or shortness of breath. Spoke to the fruit thinner. Patient is cleared from the cardiology point of view On examination: Vital signs the chest good air entry. CV is regular heart sounds Abdomen nontender Assessment and recommendation: Patient is a 72-year-old male with a history of end-stage renal disease on dialysis, hypertension, congestive heart failure, admitted with acute cardiac arrest secondary to V. tach. Patient now having AICD. Continue the current treatment. Dialysis as needed. Follow-up the patient patient will be transferred to telemetry CCU Objective - Vital Signs / Intake & Output Vital Signs (Last 4 hours): Vital Signs Temp Pulse Resp BP Pulse Ox 12/23/17 15:00 69 10 L 97 12/23/17 14:49 71 14 108/53 L 98 12/23/17 12:00 97.6 F Intake and Output (Last 8hrs): Intake & Output 12/23/17 12/23/17 12/23/17 06:59 14:59 22:59 Intake Total 0 600 100 Output Total 0 0 Balance 0 600 100 Weight 164 lb 11.2 oz Intake: Oral 0 600 100 Output: Urine 0 0 Urine, Voided 0 0 Other: # Voids Urine, Voided 0 0 # Bowel Movements 0 0 - Medications Active Medications: Active Medications Generic Name Dose Route Start Last Admin Trade Name Freq PRN Reason Stop Dose Admin Albumin Human 25 gm 12/21/17 09:00 Albumin Human 25% (12.5 Gm/50 Ml) IV MWF PRN hypotension SBP <90 DBP <50 Amiodarone HCl 200 mg 12/19/17 16:00 12/23/17 10:08 Cordarone PO 200 mg DAILY [facility] Administration Apixaban 2.5 mg 12/23/17 10:00 12/23/17 10:08 Eliquis PO 2.5 mg BID [facility] Administration Carvedilol 6.25 mg 12/19/17 18:00 12/23/17 10:04 Coreg PO Not Given BID [facility] Ergocalciferol 1 cap 12/20/17 10:00 12/20/17 11:16 Drisdol 50,000 Intl Units Cap PO 1 cap QWK [facility] Administration Insulin Aspart 0 unit 12/19/17 16:30 12/23/17 11:52 Novolog SC 1 unit ACHS [facility] Administration Protocol Midodrine 10 mg 12/24/17 09:00 Proamatine PO MWF [facility] Morphine Sulfate 1 mg 12/22/17 12:30 Morphine IVP Q6H PRN Pain, moderate (4-7) Oxycodone/Acetaminophen 1 tab 12/22/17 17:18 Percocet 5/325 Mg Tab PO 12/25/17 17:19 Q6H PRN Pain, moderate (4-7) Pantoprazole Sodium 40 mg 12/19/17 15:30 12/23/17 10:08 Protonix Ec Tab PO 40 mg DAILY [facility] Administration Vitamin B Complex/Vit C/Folic Acid 1 tab 12/20/17 08:00 12/23/17 08:14 Nephro-Ayo PO 1 tab 0800 [facility] Administration - Patient Studies Lab Studies: Lab Studies 12/23/17 12/23/17 12/23/17 Range/Units 11:31 09:26 09:26 WBC 8.2 (4.8-10.8) K/uL RBC 3.62 L (4.40-5.90) Mil/uL Hgb 11.7 L (12.0-18.0) g/dL Hct 34.9 L (35.0-51.0) % MCV 96.5 H (80.0-94.0) fL MCH 32.3 H (27.0-31.0) pg MCHC 33.5 (33.0-37.0) g/dL RDW 17.6 H (11.5-14.5) % Plt Count 218 (130-400) K/uL MPV 7.8 (7.2-11.7) fL Neut % (Auto) 65.9 (50.0-75.0) % Lymph % (Auto) 20.8 (20.0-40.0) % Atkinson % (Auto) 7.3 (0.0-10.0) % Eos % (Auto) 5.3 H (0.0-4.0) % Baso % (Auto) 0.7 (0.0-2.0) % Neut # (Auto) 5.4 (1.8-7.0) K/uL Lymph # (Auto) 1.7 (1.0-4.3) K/uL Atkinson # (Auto) 0.6 (0.0-0.8) K/uL Eos # (Auto) 0.4 (0.0-0.7) K/uL Baso # (Auto) 0.1 (0.0-0.2) K/uL Sodium 136 (132-148) mmol/L Potassium 4.1 (3.6-5.2) mmol/L Chloride 98 (98-107) mmol/L Carbon Dioxide 24 (22-30) mmol/L Anion Gap 18 (10-20) BUN 49 H (9-20) mg/dL Creatinine 6.1 H (0.8-1.5) mg/dL Est GFR ( Amer) 11 Est GFR (Non-Af Amer) 9 POC Glucose (mg/dL) 156 H (65-110) mg/dL Random Glucose 159 H (75-110) mg/dL Calcium 9.0 (8.6-10.4) mg/dl Phosphorus 3.9 (2.5-4.5) mg/dL Magnesium 1.9 (1.6-2.3) mg/dL Total Bilirubin 0.8 (0.2-1.3) mg/dL AST 29 (17-59) U/L ALT 27 (21-72) U/L Alkaline Phosphatase 71 (38-126) U/L Total Protein 7.4 (6.3-8.3) g/dL Albumin 3.3 L (3.5-5.0) g/dL Globulin 4.1 H (2.2-3.9) gm/dL Albumin/Globulin Ratio 0.8 L (1.0-2.1) 12/23/17 12/22/17 12/22/17 Range/Units 07:34 21:07 16:06 WBC (4.8-10.8) K/uL RBC (4.40-5.90) Mil/uL Hgb (12.0-18.0) g/dL Hct (35.0-51.0) % MCV (80.0-94.0) fL MCH (27.0-31.0) pg MCHC (33.0-37.0) g/dL RDW (11.5-14.5) % Plt Count (130-400) K/uL MPV (7.2-11.7) fL Neut % (Auto) (50.0-75.0) % Lymph % (Auto) (20.0-40.0) % Atkinson % (Auto) (0.0-10.0) % Eos % (Auto) (0.0-4.0) % Baso % (Auto) (0.0-2.0) % Neut # (Auto) (1.8-7.0) K/uL Lymph # (Auto) (1.0-4.3) K/uL Atkinson # (Auto) (0.0-0.8) K/uL Eos # (Auto) (0.0-0.7) K/uL Baso # (Auto) (0.0-0.2) K/uL Sodium (132-148) mmol/L Potassium (3.6-5.2) mmol/L Chloride (98-107) mmol/L Carbon Dioxide (22-30) mmol/L Anion Gap (10-20) BUN (9-20) mg/dL Creatinine (0.8-1.5) mg/dL Est GFR ( Amer) Est GFR (Non-Af Amer) POC Glucose (mg/dL) 127 H 194 H 187 H (65-110) mg/dL Random Glucose (75-110) mg/dL Calcium (8.6-10.4) mg/dl Phosphorus (2.5-4.5) mg/dL Magnesium (1.6-2.3) mg/dL Total Bilirubin (0.2-1.3) mg/dL AST (17-59) U/L ALT (21-72) U/L Alkaline Phosphatase (38-126) U/L Total Protein (6.3-8.3) g/dL Albumin (3.5-5.0) g/dL Globulin (2.2-3.9) gm/dL Albumin/Globulin Ratio (1.0-2.1) Laboratory Results - last 24 hr 12/22/17 12/22/17 12/23/17 16:06 21:07 07:34 WBC RBC Hgb Hct MCV MCH MCHC RDW Plt Count MPV Neut % (Auto) Lymph % (Auto) Atkinson % (Auto) Eos % (Auto) Baso % (Auto) Neut # (Auto) Lymph # (Auto) Atkinson # (Auto) Eos # (Auto) Baso # (Auto) Sodium Potassium Chloride Carbon Dioxide Anion Gap BUN Creatinine Est GFR ( Amer) Est GFR (Non-Af Amer) POC Glucose (mg/dL) 187 H 194 H 127 H Random Glucose Calcium Phosphorus Magnesium Total Bilirubin AST ALT Alkaline Phosphatase Total Protein Albumin Globulin Albumin/Globulin Ratio 12/23/17 12/23/17 12/23/17 09:26 09:26 11:31 WBC 8.2 RBC 3.62 L Hgb 11.7 L Hct 34.9 L MCV 96.5 H MCH 32.3 H MCHC 33.5 RDW 17.6 H Plt Count 218 MPV 7.8 Neut % (Auto) 65.9 Lymph % (Auto) 20.8 Atkinson % (Auto) 7.3 Eos % (Auto) 5.3 H Baso % (Auto) 0.7 Neut # (Auto) 5.4 Lymph # (Auto) 1.7 Atkinson # (Auto) 0.6 Eos # (Auto) 0.4 Baso # (Auto) 0.1 Sodium 136 Potassium 4.1 Chloride 98 Carbon Dioxide 24 Anion Gap 18 BUN 49 H Creatinine 6.1 H Est GFR ( Amer) 11 Est GFR (Non-Af Amer) 9 POC Glucose (mg/dL) 156 H Random Glucose 159 H Calcium 9.0 Phosphorus 3.9 Magnesium 1.9 Total Bilirubin 0.8 AST 29 ALT 27 Alkaline Phosphatase 71 Total Protein 7.4 Albumin 3.3 L Globulin 4.1 H Albumin/Globulin Ratio 0.8 L Fingerstick Blood Sugar Results: 217 Critical Care Progress Note - Nutrition Nutrition: Nutrition Category Date Time Status Renal Diet [DIET] Diets 12/20/17 Dinner Active
--- NOTE | 2017-12-23 16:02 | CP.PCM.PN ---
Subjective - Date & Time of Evaluation Date of Evaluation: 12/23/17 Time of Evaluation: 16:01 - Subjective Subjective: Nephrology Consultation Note: Assessment: Stable cardiac arrest and V tach s/p cardioversion and AICD End stage renal disease (N18.6) dependence on hemodialysis (Z99.2) (MWF) via [facility] Anemia (D64.9), chronic low BP/hypotension, chronic sys CHF LVEF <20%, DM cardio-renal syndrome Plan: No acute need for dialysis today. Will plan for next dialysis Sunday. Continue with Nephrovite 1 tab/day. PRBC as needed for anemia. Last Hb 12, plan for INOCENCIO if Hb <10 last phos level 4.3 maintain hemodynamics stable. Patient not on RAAS sofia as BP usually low. he takes midodrine, continue if okay from cardiology perspective Glycemic control, Dialysis consistent diet Further work up/management as per primary team Dose meds/antibiotics (if needed) for ESRD status. Avoid fleets enema/magnesium based laxatives. d/w ICU team Thanks for allowing me to participate in care of your patient. Will follow patient with you. Please call if any Qs. Dr Darryl Dunn Office: [phone] HPI: Pt is a72 M with hx of JERI (cardio-renal syndrome, ATN) on CKD 3 in may 2017 which was dialysis dependent and now ESRD on hemodialysis (MWF) [facility], last dialysis today, chronic anemia, DM, chronic low BP, chronic severe systolic CHF (LVEF <20%) was undergoing dialysis today but towards the end of HD he became unresponsive. he was resuscitated with CPR, shocks and brought to hospital for further eval has chronic hoarseness of voice since prolonged intubation last year c/o chest soreness and pain after CPR. denies SOB ROS: Cardiovascular: no chest pain Pulmonary: No shortness of breath Gastrointestinal: denies abdominal pain No nausea. No vomiting. Genitourinary: No pain while urinating. Denies blood in urine. makes small amount of urine All other negative except as mentioned in HPI. wants to go home Physical Examination: General Appearance: Comfortable, in no acute respiratory distress, co-operative Vitals reviewed and noted as below Head; Atraumatic, normocephalic ENT: no ulcers no thrush. Tongue is midline. Oropharynx: no rash or ulcers.has hoarse voice EYES: Pupils are equal, round and reactive to light accommodation. Eye muscles and extraocular movement intact. Sclera is anicteric. Neck; supple no lymphadenopathy, no thyromegaly or bruit Lungs: Normal respiratory rate/effort. Breath sounds bilateral equal and few basal crackles Heart: Normal rate. s1s2 normal. No rub or gallop. has AICD Extremities: 1+ edema. No varicose veins. Neurological: Patient is alert, awake and oriented to person, place and time. No focal deficit. Strength bilateral appropriate and equal Skin: Warm and dry. Normal turgor. No rash. Palpitation: Normal elasticity for age Abdomen: Abdomen is soft. Bowel sounds +. There is no abdominal tenderness, no guarding/rigidity or organomegaly Psych: normal insight and normal affect/mood MSK: no joint tenderness or swelling. Digits and nails normal, no deformity : kidney or bladder not palpable Access: permacath. left AVF maturing. LUE edema improved Labs/imaging reviewed. Past medical history, past surgical history, family history, social history, allergy reviewed and noted as below Family Hx: no hx of CKD. Non contributory Objective - Vital Signs/Intake and Output Vital Signs (last 24 hours): Temp Pulse Resp BP Pulse Ox 97.6 F 69 10 L 108/53 L 97 12/23/17 12:00 12/23/17 15:00 12/23/17 15:00 12/23/17 14:49 12/23/17 15:00 Intake and Output: 12/23/17 12/23/17 06:59 18:59 Intake Total 200 700 Output Total 0 0 Balance 200 700 - Medications Medications: Current Medications Albumin Human (Albumin Human 25% (12.5 Gm/50 Ml)) 25 gm IV MWF PRN PRN Reason: hypotension SBP <90 DBP <50 Amiodarone HCl (Cordarone) 200 mg PO DAILY [facility] Last Admin: 12/23/17 10:08 Dose: 200 mg Apixaban (Eliquis) 2.5 mg PO BID [facility] Last Admin: 12/23/17 10:08 Dose: 2.5 mg Carvedilol (Coreg) 6.25 mg PO BID [facility] Last Admin: 12/23/17 10:04 Dose: Not Given Ergocalciferol (Drisdol 50,000 Intl Units Cap) 1 cap PO QWK [facility] Last Admin: 12/20/17 11:16 Dose: 1 cap Insulin Aspart (Novolog) 0 unit SC ACHS [facility] PRN Reason: Protocol Last Admin: 12/23/17 11:52 Dose: 1 unit Midodrine (Proamatine) 10 mg PO MWF [facility] Morphine Sulfate (Morphine) 1 mg IVP Q6H PRN PRN Reason: Pain, moderate (4-7) Oxycodone/Acetaminophen (Percocet 5/325 Mg Tab) 1 tab PO Q6H PRN PRN Reason: Pain, moderate (4-7) Stop: 12/25/17 17:19 Pantoprazole Sodium (Protonix Ec Tab) 40 mg PO DAILY [facility] Last Admin: 12/23/17 10:08 Dose: 40 mg Vitamin B Complex/Vit C/Folic Acid (Nephro-Ayo) 1 tab PO 0800 [facility] Last Admin: 12/23/17 08:14 Dose: 1 tab - Labs Labs: 12/23/17 09:26 12/23/17 09:26 PT 13.0 SECONDS (9.7-12.2) H 12/21/17 05:21 INR 1.1 12/21/17 05:21 APTT 30 SECONDS (21-34) 12/21/17 05:21
[2017-12-24] MEDS: (Novolog) Insulin Aspart, Recombinant 100 u/ml 10 ml vial SC SCH ×3 (07:57→16:36)
--- NOTE | 2017-12-24 08:08 | CP.PCM.PN ---
Subjective - Date & Time of Evaluation Date of Evaluation: 12/24/17 Time of Evaluation: 08:00 - Subjective Subjective: Patient is doing well after AICD implant. no chest pain Objective - Vital Signs/Intake and Output Vital Signs (last 24 hours): Temp Pulse Resp BP Pulse Ox 98.0 F 66 20 116/68 100 12/24/17 06:59 12/24/17 06:59 12/24/17 06:59 12/24/17 06:59 12/24/17 06:59 Intake and Output: 12/24/17 12/24/17 06:59 18:59 Intake Total 125 Balance 125 - Medications Medications: Current Medications Albumin Human (Albumin Human 25% (12.5 Gm/50 Ml)) 25 gm IV MWF PRN PRN Reason: hypotension SBP <90 DBP <50 Amiodarone HCl (Cordarone) 200 mg PO DAILY [facility] Last Admin: 12/23/17 10:08 Dose: 200 mg Apixaban (Eliquis) 2.5 mg PO BID [facility] Last Admin: 12/23/17 17:22 Dose: 2.5 mg Carvedilol (Coreg) 6.25 mg PO BID [facility] Last Admin: 12/23/17 17:21 Dose: Not Given Ergocalciferol (Drisdol 50,000 Intl Units Cap) 1 cap PO QWK [facility] Last Admin: 12/20/17 11:16 Dose: 1 cap Insulin Aspart (Novolog) 0 unit SC ACHS [facility] PRN Reason: Protocol Last Admin: 12/24/17 07:57 Dose: Not Given Midodrine (Proamatine) 10 mg PO MWF [facility] Morphine Sulfate (Morphine) 1 mg IVP Q6H PRN PRN Reason: Pain, moderate (4-7) Oxycodone/Acetaminophen (Percocet 5/325 Mg Tab) 1 tab PO Q6H PRN PRN Reason: Pain, moderate (4-7) Stop: 12/25/17 17:19 Pantoprazole Sodium (Protonix Ec Tab) 40 mg PO DAILY [facility] Last Admin: 12/23/17 10:08 Dose: 40 mg Vitamin B Complex/Vit C/Folic Acid (Nephro-Ayo) 1 tab PO 0800 [facility] Last Admin: 12/23/17 08:14 Dose: 1 tab - Labs Labs: 12/23/17 09:26 12/23/17 09:26 PT 13.0 SECONDS (9.7-12.2) H 12/21/17 05:21 INR 1.1 12/21/17 05:21 APTT 30 SECONDS (21-34) 12/21/17 05:21 - Constitutional Appears: Non-toxic - Head Exam Head Exam: NORMAL INSPECTION - Eye Exam Eye Exam: Normal appearance - ENT Exam ENT Exam: Mucous Membranes Moist - Neck Exam Neck Exam: Full ROM - Respiratory Exam Respiratory Exam: NORMAL BREATHING PATTERN - Cardiovascular Exam Cardiovascular Exam: REGULAR RHYTHM - GI/Abdominal Exam GI & Abdominal Exam: Normal Bowel Sounds - Rectal Exam Rectal Exam: Deferred - Extremities Exam Extremities Exam: absent: Pedal Edema - Back Exam Back Exam: NORMAL INSPECTION - Neurological Exam Neurological Exam: Alert - Psychiatric Exam Psychiatric exam: Normal Affect - Skin Skin Exam: Normal Color Assessment and Plan (1) Cardiac arrest Assessment & Plan: s/p AICD. doing well. site c/d/i. stable for discharge. Status: Acute (2) Chronic systolic CHF (congestive heart failure), NYHA class 2 Assessment & Plan: s/p AICD. can rodriguez midodrine. Status: Acute
[2017-12-24] MEDS: Multivitamin Vitamin B Complex (Nephro-Vite) Tab PO SCH (08:56)
--- NOTE | 2017-12-24 12:41 | CP.PCM.PN ---
Objective - Vital Signs/Intake and Output Vital Signs (last 24 hours): Temp Pulse Resp BP Pulse Ox 97.8 F 77 18 97/62 L 100 12/24/17 09:40 12/24/17 09:40 12/24/17 09:50 12/24/17 12:05 12/24/17 09:50 Intake and Output: 12/24/17 12/24/17 06:59 18:59 Intake Total 125 Balance 125 - Medications Medications: Current Medications Albumin Human (Albumin Human 25% (12.5 Gm/50 Ml)) 25 gm IV MWF PRN PRN Reason: hypotension SBP <90 DBP <50 Amiodarone HCl (Cordarone) 200 mg PO DAILY [facility] Last Admin: 12/23/17 10:08 Dose: 200 mg Apixaban (Eliquis) 2.5 mg PO BID [facility] Last Admin: 12/23/17 17:22 Dose: 2.5 mg Carvedilol (Coreg) 6.25 mg PO BID [facility] Last Admin: 12/23/17 17:21 Dose: Not Given Ergocalciferol (Drisdol 50,000 Intl Units Cap) 1 cap PO QWK [facility] Last Admin: 12/20/17 11:16 Dose: 1 cap Insulin Aspart (Novolog) 0 unit SC ACHS [facility] PRN Reason: Protocol Last Admin: 12/24/17 07:57 Dose: Not Given Midodrine (Proamatine) 10 mg PO MWF [facility] Last Admin: 12/24/17 08:56 Dose: 10 mg Morphine Sulfate (Morphine) 1 mg IVP Q6H PRN PRN Reason: Pain, moderate (4-7) Oxycodone/Acetaminophen (Percocet 5/325 Mg Tab) 1 tab PO Q6H PRN PRN Reason: Pain, moderate (4-7) Stop: 12/25/17 17:19 Pantoprazole Sodium (Protonix Ec Tab) 40 mg PO DAILY [facility] Last Admin: 12/23/17 10:08 Dose: 40 mg Vitamin B Complex/Vit C/Folic Acid (Nephro-Ayo) 1 tab PO 0800 [facility] Last Admin: 12/24/17 08:56 Dose: 1 tab - Labs Labs: 12/23/17 09:26 12/23/17 09:26 PT 13.0 SECONDS (9.7-12.2) H 12/21/17 05:21 INR 1.1 12/21/17 05:21 APTT 30 SECONDS (21-34) 12/21/17 05:21
[2017-12-24] MEDS: Pantoprazole 40 mg EC Tab PO SCH (14:01)
[2017-12-24] MEDS ORDERED: Bisacodyl 5mg EC Tab PO ONE (14:42)
--- NOTE | 2017-12-24 15:47 | CP.PCM.PN ---
Subjective - Date & Time of Evaluation Date of Evaluation: 12/24/17 Time of Evaluation: 15:44 - Subjective Subjective: Nephrology Consultation Note: Assessment: Stable cardiac arrest and V tach s/p cardioversion and AICD End stage renal disease (N18.6) dependence on hemodialysis (Z99.2) (MWF) via permacath Anemia (D64.9), chronic low BP/hypotension, chronic sys CHF LVEF <20%, DM cardio-renal syndrome Plan: Will plan for dialysis Sunday. Continue with Nephrovite 1 tab/day. PRBC as needed for anemia. Last Hb 12, plan for INOCENCIO if Hb <10 last phos level 4.3 maintain hemodynamics stable. Patient not on RAAS sofia as BP usually low. he takes midodrine, continue with it as okay from cardiology perspective Glycemic control, Dialysis consistent diet Further work up/management as per primary team Dose meds/antibiotics (if needed) for ESRD status. Avoid fleets enema/magnesium based laxatives. pt planned for d/c to rehab, stable from renal perspective Thanks for allowing me to participate in care of your patient. Will follow patient with you. Please call if any Qs. Dr Darryl Dunn Office: [phone] HPI: Pt is a72 M with hx of JERI (cardio-renal syndrome, ATN) on CKD 3 in may 2017 which was dialysis dependent and now ESRD on hemodialysis (MWF) via permacath @[facility], last dialysis today, chronic anemia, DM, chronic low BP, chronic severe systolic CHF (LVEF <20%) was undergoing dialysis today but towards the end of HD he became unresponsive. he was resuscitated with CPR, shocks and brought to hospital for further eval has chronic hoarseness of voice since prolonged intubation last year c/o chest soreness and pain after CPR. denies SOB ROS: Cardiovascular: c/o chest pain/soreness after CPR Pulmonary: No shortness of breath Gastrointestinal: denies abdominal pain No nausea. No vomiting. Genitourinary: No pain while urinating. Denies blood in urine. makes small amount of urine All other negative except as mentioned in HPI. wants to go home Physical Examination: General Appearance: Comfortable, in no acute respiratory distress, co-operative Vitals reviewed and noted as below Head; Atraumatic, normocephalic ENT: no ulcers no thrush. Tongue is midline. Oropharynx: no rash or ulcers.has hoarse voice EYES: Pupils are equal, round and reactive to light accommodation. Eye muscles and extraocular movement intact. Sclera is anicteric. Neck; supple no lymphadenopathy, no thyromegaly or bruit Lungs: Normal respiratory rate/effort. Breath sounds bilateral equal and few basal crackles Heart: Normal rate. s1s2 normal. No rub or gallop. has AICD Extremities: 1+ edema. No varicose veins. Neurological: Patient is alert, awake and oriented to person, place and time. No focal deficit. Strength bilateral appropriate and equal Skin: Warm and dry. Normal turgor. No rash. Palpitation: Normal elasticity for age Abdomen: Abdomen is soft. Bowel sounds +. There is no abdominal tenderness, no guarding/rigidity or organomegaly Psych: normal insight and normal affect/mood MSK: no joint tenderness or swelling. Digits and nails normal, no deformity : kidney or bladder not palpable Access: permacath. left AVF maturing. LUE edema improved Labs/imaging reviewed. Past medical history, past surgical history, family history, social history, allergy reviewed and noted as below Family Hx: no hx of CKD. Non contributory Objective - Vital Signs/Intake and Output Vital Signs (last 24 hours): Temp Pulse Resp BP Pulse Ox 97.8 F 79 18 107/59 L 100 12/24/17 09:40 12/24/17 14:02 12/24/17 09:50 12/24/17 14:02 12/24/17 09:50 Intake and Output: 12/24/17 12/24/17 06:59 18:59 Intake Total 125 450 Balance 125 450 - Medications Medications: Current Medications Albumin Human (Albumin Human 25% (12.5 Gm/50 Ml)) 25 gm IV MWF PRN PRN Reason: hypotension SBP <90 DBP <50 Amiodarone HCl (Cordarone) 200 mg PO DAILY [facility] Last Admin: 12/24/17 14:01 Dose: 200 mg Apixaban (Eliquis) 2.5 mg PO BID [facility] Last Admin: 12/24/17 10:33 Dose: Not Given Carvedilol (Coreg) 6.25 mg PO BID [facility] Last Admin: 12/24/17 10:33 Dose: Not Given Ergocalciferol (Drisdol 50,000 Intl Units Cap) 1 cap PO QWK [facility] Last Admin: 12/20/17 11:16 Dose: 1 cap Insulin Aspart (Novolog) 0 unit SC ACHS [facility] PRN Reason: Protocol Last Admin: 12/24/17 12:46 Dose: Not Given Midodrine (Proamatine) 10 mg PO MWF [facility] Last Admin: 12/24/17 08:56 Dose: 10 mg Morphine Sulfate (Morphine) 1 mg IVP Q6H PRN PRN Reason: Pain, moderate (4-7) Oxycodone/Acetaminophen (Percocet 5/325 Mg Tab) 1 tab PO Q6H PRN PRN Reason: Pain, moderate (4-7) Stop: 12/25/17 17:19 Pantoprazole Sodium (Protonix Ec Tab) 40 mg PO DAILY [facility] Last Admin: 12/24/17 14:01 Dose: 40 mg Vitamin B Complex/Vit C/Folic Acid (Nephro-Ayo) 1 tab PO 0800 [facility] Last Admin: 12/24/17 08:56 Dose: 1 tab - Labs Labs: 12/23/17 09:26 12/23/17 09:26 PT 13.0 SECONDS (9.7-12.2) H 12/21/17 05:21 INR 1.1 12/21/17 05:21 APTT 30 SECONDS (21-34) 12/21/17 05:21
--- NOTE | 2017-12-24 15:52 | CP.PCM.DIS ---
<Kaleb Alvarado - Last Filed: 12/24/17 17:35> Provider - Provider Date of Admission: 12/19/17 13:13 Attending physician: Jeanette Dubose MD Primary care physician: Slava Consults: Cardiology: Dr. Desai Nephrology: Dr. Dunn Electrophysiology: Dr. Fishman Time Spent in preparation of Discharge (in minutes): 50 Diagnosis - Discharge Diagnosis (1) Cardiac arrest Status: Acute Priority: High (2) Systolic CHF Status: Chronic Priority: High (3) End stage renal disease Status: Chronic Priority: High (4) History of diabetes mellitus Status: Chronic Priority: Medium Hospital Course - Lab Results Lab Results: Micro Results 12/19/17 Unknown Naris MRSA Culture (Admit) - Final MRSA NOT DETECTED Most Recent Lab Values WBC 8.2 K/uL (4.8-10.8) 12/23/17 09:26 RBC 3.62 Mil/uL (4.40-5.90) L 12/23/17 09:26 Hgb 11.7 g/dL (12.0-18.0) L 12/23/17 09:26 Hct 34.9 % (35.0-51.0) L 12/23/17 09:26 MCV 96.5 fL (80.0-94.0) H 12/23/17 09:26 MCH 32.3 pg (27.0-31.0) H 12/23/17 09:26 MCHC 33.5 g/dL (33.0-37.0) 12/23/17 09:26 RDW 17.6 % (11.5-14.5) H 12/23/17 09:26 Plt Count 218 K/uL (130-400) 12/23/17 09:26 MPV 7.8 fL (7.2-11.7) 12/23/17 09:26 Neut % (Auto) 65.9 % (50.0-75.0) 12/23/17 09:26 Lymph % (Auto) 20.8 % (20.0-40.0) 12/23/17 09:26 [place] % (Auto) 7.3 % (0.0-10.0) 12/23/17 09:26 Eos % (Auto) 5.3 % (0.0-4.0) H 12/23/17 09:26 Baso % (Auto) 0.7 % (0.0-2.0) 12/23/17 09:26 Neut # (Auto) 5.4 K/uL (1.8-7.0) 12/23/17 09:26 Lymph # (Auto) 1.7 K/uL (1.0-4.3) 12/23/17 09:26 [place] # (Auto) 0.6 K/uL (0.0-0.8) 12/23/17 09:26 Eos # (Auto) 0.4 K/uL (0.0-0.7) 12/23/17 09:26 Baso # (Auto) 0.1 K/uL (0.0-0.2) 12/23/17 09:26 Neutrophils % (Manual) 82 % (50-75) H 12/22/17 06:14 Band Neutrophils % 1 % (0-2) 12/22/17 06:14 Lymphocytes % (Manual) 10 % (20-40) L 12/22/17 06:14 Monocytes % (Manual) 4 % (0-10) 12/22/17 06:14 Eosinophils % (Manual) 3 % (0-4) 12/22/17 06:14 Toxic Granulation Present 12/22/17 06:14 Platelet Estimate Normal (NORMAL) 12/22/17 06:14 Large Platelets Present 12/22/17 06:14 Polychromasia Slight 12/22/17 06:14 Hypochromasia (manual) Slight 12/22/17 06:14 Poikilocytosis (manual Slight 12/22/17 06:14 Anisocytosis (manual) Slight 12/22/17 06:14 [place] Cells Slight 12/22/17 06:14 PT 13.0 SECONDS (9.7-12.2) H 12/21/17 05:21 INR 1.1 12/21/17 05:21 APTT 30 SECONDS (21-34) 12/21/17 05:21 Sodium 136 mmol/L (132-148) 12/23/17 09:26 Potassium 4.1 mmol/L (3.6-5.2) 12/23/17 09:26 Chloride 98 mmol/L (98-107) 12/23/17 09:26 Carbon Dioxide 24 mmol/L (22-30) 12/23/17 09:26 Anion Gap 18 (10-20) 12/23/17 09:26 BUN 49 mg/dL (9-20) H 12/23/17 09:26 Creatinine 6.1 mg/dL (0.8-1.5) H 12/23/17 09:26 Est GFR ( Amer) 11 12/23/17 09:26 Est GFR (Non-Af Amer) 9 12/23/17 09:26 POC Glucose (mg/dL) 173 mg/dL (65-110) H 12/24/17 11:14 Random Glucose 159 mg/dL (75-110) H 12/23/17 09:26 Lactic Acid 1.1 mmol/L (0.7-2.1) 12/20/17 11:32 Calcium 9.0 mg/dl (8.6-10.4) 12/23/17 09:26 Phosphorus 3.9 mg/dL (2.5-4.5) 12/23/17 09:26 Magnesium 1.9 mg/dL (1.6-2.3) 12/23/17 09:26 Total Bilirubin 0.8 mg/dL (0.2-1.3) 12/23/17 09:26 AST 29 U/L (17-59) 12/23/17 09:26 ALT 27 U/L (21-72) 12/23/17 09:26 Alkaline Phosphatase 71 U/L (38-126) 12/23/17 09:26 Troponin I 0.0670 ng/mL (0.00-0.120) 12/19/17 13:57 NT-Pro-B Natriuret Pep 62303 pg/mL (0-900) H 12/19/17 13:57 Total Protein 7.4 g/dL (6.3-8.3) 12/23/17 09:26 Albumin 3.3 g/dL (3.5-5.0) L 12/23/17 09:26 Globulin 4.1 gm/dL (2.2-3.9) H 12/23/17 09:26 Albumin/Globulin Ratio 0.8 (1.0-2.1) L 12/23/17 09:26 Hep Bs Antigen Negative (NEGATIVE) 03/23/18 09:23 Hep Bs Antibody Negative (NEGATIVE) 12/21/17 09:23 Hep B Core IgM Ab Negative (NEGATIVE) 12/21/17 09:23 - Hospital Course Hospital Course: Initial note: "Patient is a 72 year old male with past medical history of ESRD on Hemodialysis M,W,F, Diabetes Mellitus Type 2, low blood pressure, Congestive Heart Failure LVEF <20% presents to the ED s/p cardiac arrest. Patient's nephew is at the beside providing the history. He states that the patient went to hemodialysis with his . While getting dialyzed he complained that he was cold then his eyes rolled in the back of his head. Patient was unresponsive, CPR was initiated. He was given Epi x 1, Shock x 2, 5 sets of CPR with ROSC. Currently he is complaining of chest pain after the CPR. Denies headaches, dizziness, sob, palpitations, abdominal pain. He does not make urine." Hospital Course: Patient admitted for cardiac arrest during outpatient dialysis session. Patient was resuscitated and brought to the hospital where he was admitted to the ICU and noted with beats of Ventricular Tachycardia requiring multiple defibrillations throughout hospital course. Electrophysiology was recommended, and patient was transferred to [facility] on 12/21/17 for Biventricular AICD placement. His AICD was interrogated and found to be working properly. Patient was later cleared by cardiology for discharge. Family has requested subacute rehab for the patient. This is a summary of the hospital course. For more information, refer to the medical records. Discharge Exam - Head Exam Head Exam: ATRAUMATIC, NORMOCEPHALIC - Eye Exam Eye Exam: EOMI - ENT Exam ENT Exam: Mucous Membranes Moist - Respiratory Exam Respiratory Exam: Chest Wall Tenderness, Clear to PA & Lateral, NORMAL BREATHING PATTERN. absent: Rales, Rhonchi, Wheezes - Cardiovascular Exam Cardiovascular Exam: REGULAR RHYTHM, +S1, +S2 - GI/Abdominal Exam GI & Abdominal Exam: Normal Bowel Sounds, Soft. absent: Tenderness - Extremities Exam Extremities exam: pedal pulses present - Neurological Exam Neurological exam: Alert, CN II-XII Intact, Oriented x3 - Psychiatric Exam Psychiatric exam: Normal Affect, Normal Mood - Skin Skin Exam: Dry, Warm Discharge Plan - Follow Up Plan Condition: STABLE Disposition: NURSING FACILITY MEDICAID CERT Instructions: Heart Failure (DC), Pacemaker (DC), Pulmonary Edema (DC), Renal Failure Diet (DC), Ascites (DC) Additional Instructions: Please continue medications as per medication reconciliation list. Patient had biventricular pacemaker placed on 12/21/17. Please follow up with primary and cardiology within 1 week. If there are any new or worsening symptoms, please go to the nearest emergency room. Referrals: Xander Pedersen, XIAO, INSTRUCTIONAL DESIGN SPECIALIST [Advanced Practice Nurse] - Boone Desai MD [Staff Provider] - Catracho Oden MD [Staff Provider] - Clinical Quality Measures - CQM - Heart Failure Ejection Fraction: Less Than 40 % Left Ventricular Function to be assessed after discharge: Yes DEYSI Inhibitor Prescribed: No Contraindication/Reason for not providing: ESRD and gets hypotensive Beta-Adelso Prescribed: Carvedilol Angiotensin II Receptor Adelso Prescribed: No Contraindication/Reason for not providing: ESRD and gets hypotensive AnticoagulationTherapy for Atrial Fibrillation/Atrialflutter: Yes Aldosterone Antagonist Prescribed: No Contraindication/Reason for not providing: ESRD and gets hypotensive Hydralazine Nitrate Prescribed: No Contraindication/Reason for not providing: not indicated Implantable Cardioverter Defibrillator Therapy: Yes Cardiac Resynchronization Therapy Prescribed: No Contraindication/Reason for not providing: already has AICD Will be discharged to: [facility] <Jeanette Dubose - Last Filed: 12/26/17 09:28> Provider - Provider Date of Admission: 12/19/17 13:13 Attending physician: Jeanette Dubose MD Hospital Course - Lab Results Lab Results: Micro Results 12/24/17 06:51 Naris MRSA Culture - Final MRSA NOT DETECTED 12/19/17 Unknown Naris MRSA Culture (Admit) - Final MRSA NOT DETECTED Most Recent Lab Values WBC 8.2 K/uL (4.8-10.8) 12/23/17 09:26 RBC 3.62 Mil/uL (4.40-5.90) L 12/23/17 09:26 Hgb 11.7 g/dL (12.0-18.0) L 12/23/17 09:26 Hct 34.9 % (35.0-51.0) L 12/23/17 09:26 MCV 96.5 fL (80.0-94.0) H 12/23/17 09:26 MCH 32.3 pg (27.0-31.0) H 12/23/17 09:26 MCHC 33.5 g/dL (33.0-37.0) 12/23/17 09: RDW 17.6 % (11.5-14.5) H 12/23/17 09:26 Plt Count 218 K/uL (130-400) 12/23/17 09:26 MPV 7.8 fL (7.2-11.7) 12/23/17 09: Neut % (Auto) 65.9 % (50.0-75.0) 12/23/17 09: Lymph % (Auto) 20.8 % (20.0-40.0) 12/23/17 09: [place] % (Auto) 7.3 % (0.0-10.0) 12/23/17 09: Eos % (Auto) 5.3 % (0.0-4.0) H 12/23/17 09:26 Baso % (Auto) 0.7 % (0.0-2.0) 12/23/17 09: Neut # (Auto) 5.4 K/uL (1.8-7.0) 12/23/17 09: Lymph # (Auto) 1.7 K/uL (1.0-4.3) 12/23/17 09:26 [place] # (Auto) 0.6 K/uL (0.0-0.8) 12/23/17 09:26 Eos # (Auto) 0.4 K/uL (0.0-0.7) 12/23/17 09: Baso # (Auto) 0.1 K/uL (0.0-0.2) 12/23/17 09:26 Neutrophils % (Manual) 82 % (50-75) H 12/22/17 06:14 Band Neutrophils % 1 % (0-2) 12/22/17 06:14 Lymphocytes % (Manual) 10 % (20-40) L 12/22/17 06:14 Monocytes % (Manual) 4 % (0-10) 12/22/17 06:14 Eosinophils % (Manual) 3 % (0-4) 12/22/17 06:14 Toxic Granulation Present 12/22/17 06:14 Platelet Estimate Normal (NORMAL) 12/22/17 06:14 Large Platelets Present 12/22/17 06:14 Polychromasia Slight 12/22/17 06:14 Hypochromasia (manual) Slight 12/22/17 06:14 Poikilocytosis (manual Slight 12/22/17 06:14 Anisocytosis (manual) Slight 12/22/17 06:14 Michelle Cells Slight 12/22/17 06:14 PT 13.0 SECONDS (9.7-12.2) H 12/21/17 05:21 INR 1.1 12/21/17 05:21 APTT 30 SECONDS (21-34) 12/21/17 05:21 Sodium 136 mmol/L (132-148) 12/23/17 09:26 Potassium 4.1 mmol/L (3.6-5.2) 12/23/17 09:26 Chloride 98 mmol/L (98-107) 12/23/17 09:26 Carbon Dioxide 24 mmol/L (22-30) 12/23/17 09:26 Anion Gap 18 (10-20) 12/23/17 09:26 BUN 49 mg/dL (9-20) H 12/23/17 09:26 Creatinine 6.1 mg/dL (0.8-1.5) H 12/23/17 09:26 Est GFR ( Amer) 11 12/23/17 09:26 Est GFR (Non-Af Amer) 9 12/23/17 09:26 POC Glucose (mg/dL) 187 mg/dL (65-110) H 12/24/17 16:03 Random Glucose 159 mg/dL (75-110) H 12/23/17 09:26 Lactic Acid 1.1 mmol/L (0.7-2.1) 12/20/17 11:32 Calcium 9.0 mg/dl (8.6-10.4) 12/23/17 09:26 Phosphorus 3.9 mg/dL (2.5-4.5) 12/23/17 09:26 Magnesium 1.9 mg/dL (1.6-2.3) 12/23/17 09:26 Total Bilirubin 0.8 mg/dL (0.2-1.3) 12/23/17 09:26 AST 29 U/L (17-59) 12/23/17 09:26 ALT 27 U/L (21-72) 12/23/17 09:26 Alkaline Phosphatase 71 U/L (38-126) 12/23/17 09:26 Troponin I 0.0670 ng/mL (0.00-0.120) 12/19/17 13:57 NT-Pro-B Natriuret Pep 96752 pg/mL (0-900) H 12/19/17 13:57 Total Protein 7.4 g/dL (6.3-8.3) 12/23/17 09:26 Albumin 3.3 g/dL (3.5-5.0) L 12/23/17 09:26 Globulin 4.1 gm/dL (2.2-3.9) H 12/23/17 09:26 Albumin/Globulin Ratio 0.8 (1.0-2.1) L 12/23/17 09:26 Hep Bs Antigen Negative (NEGATIVE) 12/21/17 09:23 Hep Bs Antibody Negative (NEGATIVE) 12/21/17 09:23 Hep B Core IgM Ab Negative (NEGATIVE) 12/21/17 09:23 Attending/Attestation - Attestation I have personally seen and examined this patient.: Yes I have fully participated in the care of the patient.: Yes I have reviewed all pertinent clinical information, including history, physical exam and plan: Yes Notes (Text): patient was seen and examined on the dya of discharge.Discussed with the resident patient is stable for discharge to rehab. 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
[2017-12-24 16:21] VITALS: PULSE 76
[2017-12-24 18:36] VITALS: BP 121/68; RESP 18; TEMP 98.5; O2SAT 96
== END 2017-12-24 20:12 | DRG 308 ==
LOC: C.ER 12:35 → C.9I 13:13 → C.5S 12-24 06:53
PROVIDERS: ADMIT Internal Medicine; ATTEND Internal Medicine
PROC: 5A2204Z Restoration of Cardiac Rhythm, Single (ICD-10-PCS; 2017-12-19)
PROC: 5A1D70Z Performance of Urinary Filtration, Intermittent, Less than 6 Hours Per Day (ICD-10-PCS; principal; 2017-12-21)
PROC: 5A1D70Z Performance of Urinary Filtration, Intermittent, Less than 6 Hours Per Day (ICD-10-PCS; 2017-12-24)
DX: I44.1 Atrioventricular block, second degree (principal); N18.6 End stage renal disease; I46.2 Cardiac arrest due to underlying cardiac condition; I50.22 Chronic systolic (congestive) heart failure; I13.2 Hypertensive heart and chronic kidney disease with heart failure and with stage 5 chronic kidney disease, or end stage renal disease; I47.2 Ventricular tachycardia; I42.0 Dilated cardiomyopathy; I47.1 Supraventricular tachycardia; I48.0 Paroxysmal atrial fibrillation; I49.01 Ventricular fibrillation; I95.89 Other hypotension; I44.7 Left bundle-branch block, unspecified; I27.20 Pulmonary hypertension, unspecified; E11.22 Type 2 diabetes mellitus with diabetic chronic kidney disease; I08.3 Combined rheumatic disorders of mitral, aortic and tricuspid valves; E78.2 Mixed hyperlipidemia; D72.829 Elevated white blood cell count, unspecified; D64.9 Anemia, unspecified; Z99.2 Dependence on renal dialysis; Z87.891 Personal history of nicotine dependence; Z88.0 Allergy status to penicillin; Z86.14 Personal history of Methicillin resistant Staphylococcus aureus infection

== ENCOUNTER 2018-09-05 07:40 | Day surgery (SDC) | payer MEDICARE, BC ==
[2018-06-20 10:45] VITALS: BMI 28.3
[~2018-09-05 07:40] MED LIST: HEPARIN-NS 5,000 UNITS/500 ML 5,000 UNIT/500 ML BAG IV ONE; Vancomycin 1 gm/D5W 200 ml 0 GM/0 ML BAG IVPB ONE
[2018-09-05 09:16] VITALS: RESP 20
[2018-09-05 09:34] LABS: INR 1.5; PROTHROMBIN TIME 16.9 SECONDS (9.7-12.2)
[2018-09-05 09:42] LABS: CALCIUM 9.1 mg/dl (8.6-10.4)
[2018-09-05] MEDS ORDERED: Clindamycin 600mg/50ml NS 0 MG/0 ML BAG IVPB ONE (12:15)
[2018-09-05] MEDS ORDERED: Lidocaine Hydrochloride 20 ML INJ ONE (12:23)
[2018-09-05] MEDS ORDERED: Lidocaine 2% MPF (5 ml) Inj ONE ×2 (12:30→13:31)
[2018-09-05] MEDS ORDERED: Bupivacaine HCl 0.5% PF (30 ml) Inj ONE (12:37)
[2018-09-05] MEDS ORDERED: Vancomycin 1 gm/D5W 200 ml 1 GM/200 ML BAG IVPB ONE (12:40)
[2018-09-05] MEDS ORDERED: Iohexol 240 200 ML ONE (12:50)
[2018-09-05] MEDS ORDERED: Lidocaine Hydrochloride 5 ML INJ ONE (13:31)
[2018-09-05] MEDS ORDERED: HEPARIN-NS 5,000 UNITS/500 ML 5,000 UNIT/500 ML BAG IV ONE (14:08)
--- NOTE | 2018-09-05 14:57 | PCM.SURG1 ---
Surgeon's Initial Post Op Note - Surgeon's Notes Surgeon: Dr. Ovalle Marketing Communications Coordinator: Anirudh PGY2; Fozia MS3 Type of Anesthesia: Block Regional, IV Sedation, Local Anesthesia Administered By: Dr. Vinicius Paz Pre-Operative Diagnosis: End Stage Renal Disease; Difficulty with Right AVF access Operative Findings: see operative report Post-Operative Diagnosis: Same Operation Performed: Revision of Right AV Fistula with placement hybrid shunt. Specimen/Specimens Removed: none Estimated Blood Loss: EBL {In ML}: 20 Blood Products Given: N/A Drains Used: No Drains Post-Op Condition: Good Date of Surgery/Procedure: 09/05/18 Time of Surgery/Procedure: 14:57
[2018-09-05] MEDS ORDERED: Oxycodone/Acetaminophen 5/325 mg Tab PO PRN (15:12)
[2018-09-05 16:07] VITALS: BP 130/50; PULSE 50; TEMP 97; O2SAT 91
--- NOTE | 2018-09-06 02:13 | OP ---
PROCEDURE DATE: 09/05/2018 PREOPERATIVE DIAGNOSIS: Renal failure, immature fistula, right arm. POSTOPERATIVE DIAGNOSIS: Renal failure, immature fistula, right arm. PROCEDURE: Revision of arteriovenous fistula with placement of hybrid shunt, right arm. SURGEON: Jayson Ovalle Jr., MD CLINICAL APPEALS SPECIALIST: Justin Oleary DO ANESTHESIA: stephanie Jennings. INDICATION: The patient is a 72-year-old male with renal failure, previous brachio-brachial fistula, which has failed to mature, and on preoperative imaging suggested there was a perianastomotic stenosis. OPERATIVE FINDINGS: Preoperative vein mapping in the operating room showed poor development of the basilic and brachial veins in the immediately adjacent segment of the arterial anastomosis. We are also unable to locate the exact size or location of the patient's anastomosis. Because of this, we then placed a hybrid shunt in the arm. DESCRIPTION OF PROCEDURE: The patient was given the block. Incision was made at the elbow above the previously placed fistula, dissected out the artery. After this had been done, we irrigated the subcutaneous tunnel, and we isolated a segment in the axillary vein. Using ultrasound guidance and micropuncture technique, we then punctured this, and placed a wire, and exchanged this for an 0.035 wire, a larger sheath dilator, the patient was heparinized. The catheter, the [place] Hybrid 8 x 5 shunt was then deployed into this region, and then brought through the tunnel and anastomosed to the artery. Prior to this, we carried out a venogram which showed that there is some perianastomotic stenosis in the venous side. This was dilated with a 8 mm balloon with excellent cosmetic results. There was essential vein stenosis on the previous images. We then terminated the procedure. Carried out the proximal anastomosis procedure to close the wounds. At this point, there was diminution of the pulse at the wrist. There were excellent Doppler signals, and there were excellent pulse volume recordings over the fingers distally. Nonetheless, there is some concern regarding this, particularly since we are able to identify the outlet of the other fistula. Nonetheless, the wounds were closed with good pulse oximetry tracings in the fingers and the procedure was terminated. Blood loss during the procedure was less than 100 mL. The operation carried out is revision of AV fistula right arm and placement of Hybrid shunt. The patient has subsequent placement of the venous side so that there is some proximal stenosis in the stent which was dilated with an 8 mm balloon with excellent results. Jayson Ovalle Jr., MD
--- NOTE | 2018-09-06 10:14 | RAD ---
Date of service: 09/05/2018 PROCEDURE: Intraoperative Fluoroscopy. HISTORY: RENAL DISEASE END STAGE FINDINGS: Fluoroscopic assistance was provided. Fluoroscopy time = 82.5 sec. Radiation dose = 6.80 mGy. In please refer to the operative report from ANTON Navarrete.
== END 2018-09-05 16:21 | disposition home or self-care (01) ==
LOC: C.SDS 07:40
PROVIDERS: ATTEND Surgery Vascular Surgery
DX: T82.590A Other mechanical complication of surgically created arteriovenous fistula, initial encounter (principal); Y83.2 Surgical operation with anastomosis, bypass or graft as the cause of abnormal reaction of the patient, or of later complication, without mention of misadventure at the time of the procedure; N18.6 End stage renal disease; T82.858A Stenosis of other vascular prosthetic devices, implants and grafts, initial encounter; Z95.810 Presence of automatic (implantable) cardiac defibrillator
CPT/HCPCS: 36415; 36830; 36902; 80048; 82948; 85610; 85730; J1644; J3370